=== PATIENT | female | born 1995 | race Two or more races ===

== ENCOUNTER 2023-10-27 09:00 | Emergency (ER) | payer MEDICAID ==
[~2023-10-27] VITALS: Ht 157.5 cm; Wt 87.9 kg
[2023-10-27 10:48] VITALS: BP 122/80; PULSE 98; RESP 16; TEMP 99; O2SAT 98
[2023-10-27 12:12] LABS: Urine Bacteria FEW /hpf (None Seen); Urine Blood Negative /uL (Negative); Urine Clarity Turbid (Clear); Urine Color Yellow (Yellow); Urine Mucus FEW (None Seen); Urine Protein, UAD TRACE (Negative); Urine Specific Gravity 1.025 (1.001-1.035); Urine Urobilinogen Normal (Negative); Urine WBC 2 /hpf (0 - 5)
[2023-10-27] MEDS ORDERED: CEPH500C PO (12:45)
== END 2023-10-27 13:01 | disposition home or self-care (01) ==
LOC: ER 09:00
DX: O20.8 Other hemorrhage in early pregnancy (principal); R10.2 Pelvic and perineal pain; D72.828 Other elevated white blood cell count; Z3A.19 19 weeks gestation of pregnancy; Z91.040 Latex allergy status
CPT/HCPCS: 76805; 76817; 81001; 87086

== ENCOUNTER 2024-01-26 22:52 | Observation (INO) | payer OTHER ==
[~2024-01-26] VITALS: Ht 157.5 cm; Wt 87.1 kg
[~2024-01-26 22:52] MED LIST: CEPH500C PO
[2024-01-27] MEDS: LACTATED RINGER'S 1,000 ML IV ONE (00:27)
[2024-01-27] MEDS: ONDANSETRON HCL 4 MG/2 ML VIAL IV ONE (00:32)
[2024-01-27] MEDS: FAMOTIDINE (10MG/ML) 2ML VL IV ONE (00:35)
[2024-01-27] MEDS ORDERED: ZOFR4T PO (01:41)
[2024-01-27] MEDS ORDERED: PREN-96 PO (01:41)
== END 2024-01-27 01:58 | disposition home or self-care (01) ==
LOC: LDRP 22:52
PROVIDERS: ADMIT Obstetrics & Gynecology; ATTEND Obstetrics & Gynecology
DX: O21.2 Late vomiting of pregnancy (principal); O99.353 Diseases of the nervous system complicating pregnancy, third trimester; G40.909 Epilepsy, unspecified, not intractable, without status epilepticus; O26.893 Other specified pregnancy related conditions, third trimester; D72.828 Other elevated white blood cell count; M06.9 Rheumatoid arthritis, unspecified; Z3A.32 32 weeks gestation of pregnancy
CPT/HCPCS: 59025; 81002; 96361; 96374; 96375; G0378; J2405; J3490; 96360

== ENCOUNTER 2024-03-10 05:15 | Observation (INO) | payer OTHER ==
[~2024-03-10 05:15] MED LIST changes: -CEPH500C PO; +PREN-96 PO; +ZOFR4T PO
== END 2024-03-10 08:43 | disposition home or self-care (01) ==
LOC: LDRP 05:15
PROVIDERS: ADMIT Obstetrics & Gynecology; ATTEND Obstetrics & Gynecology
DX: Z36.89 Encounter for other specified antenatal screening (principal); Z3A.39 39 weeks gestation of pregnancy
CPT/HCPCS: 59025; 76805; 76818; 81002; 94760; G0378

== ENCOUNTER 2024-03-16 04:11 | Inpatient (IN) | payer MEDICAID ==
[2024-03-15 11:18] LABS: Basophils # (auto) 0.1 10 ^3/uL (0-0.2); Basophils % (auto) 0.6 % (0.0-2.0); Eosinophils # (auto) 0 10 ^3/uL (0-0.8); Eosinophils % (auto) 0.3 % (0.0-7.0); Hematocrit 39.1 % (36.0-46.0); Hemoglobin 13.5 g/dL (12.2-16.2); Lymphocytes # (auto) 2.5 10 ^3/uL (0.4-5.4); Lymphocytes % (auto) 29.9 % (10.0-50.0); Mean Corpuscular Hemoglobin 29.1 pg (28.0-32.0); Mean Corpuscular Hgb Conc. 34.5 g/dL (32.0-36.0); Mean Corpuscular Volume 84.5 fL (80.0-100.0); Monocytes # (auto) 0.4 10 ^3/uL (0-1.3); Monocytes % (auto) 4.3 % (0.0-12.0); Neutrophils # (auto) 5.4 10 ^3/uL (1.6-8.6); Neutrophils % (auto) 64.9 % (37.0-80.0); Platelet Count (auto) 231 10^3/uL (140-450); Red Blood Cells 4.63 10^6/uL (4.0-5.20); Red Cell Distribution Width 14.3 % (11.8-14.3); White Blood Cell 8.3 10^3/uL (4.4-10.8)
[2024-03-15 11:34] LABS: Partial Thromboplastin Time 28.4 SEC (24.5-34.5); Prothrombin Time 10.6 sec (9.3-11.8)
[2024-03-15 11:40] LABS: Alanine Aminotransferase 18 U/L (7-40); Alkaline Phosphatase 188 U/L (46-116); Anion Gap 10 (5-15); Aspartate Aminotransferase 20 U/L (13-40); BUN/Creatinine Ratio 18.5 (10.0-20.0); Bilirubin, Total 0.5 mg/dL (0.2-1.0); Blood Urea Nitrogen 10 mg/dL (9-23); Calcium 9.1 mg/dL (8.7-10.4); Carbon Dioxide 20 mmol/L (20-31); Chloride 105 mmol/L (98-107); Glucose 122 mg/dL (74-106); Potassium 3.5 mmol/L (3.5-5.1); Sodium 135 mmol/L (136-145); Total Protein 6.9 g/dL (5.7-8.2)
[2024-03-15 13:09] LABS: Amphetamine Screen, Urine Neg (NEGATIVE); Benzodiazephine Screen, Urine Neg (NEGATIVE)
[2024-03-15 13:10] LABS: Barbiturate Scree,Urine Neg (NEGATIVE); Cannabinoid Screen, Urine Neg (NEGATIVE); Cocaine Screen, Urine Neg (NEGATIVE); Opiate Scree,Urine Neg (NEGATIVE); Phencyclidine Screen, Urine Neg (NEGATIVE)
[2024-03-15 13:15] LABS: Urine Bacteria FEW /hpf (None Seen); Urine Blood TRACE /uL (Negative); Urine Clarity Turbid (Clear); Urine Color Yellow (Yellow); Urine Mucus MODERATE (None Seen); Urine Protein, UAD 1+ (Negative); Urine Specific Gravity 1.028 (1.001-1.035); Urine Urobilinogen Normal (Negative); Urine WBC 3 /hpf (0 - 5)
--- NOTE | 2024-03-15 15:32 | DVHDS2 ---
Physician Discharge Progress N Final Diagnosis: preop Operations or Procedures: Operations or Procedures labs Condition on Discharge: Good Disposition: Home Discharge Instructions: Diet: Regular Activity: No Restrictions, As Tolerated Medications: na Follow Up Care: Specialist: 1d Discharge Statement: "Patient was advised to return to the ER or call 911 if any headaches, di zziness, shortness of breath, chest pain, abdominal pain, bleeding, fevers, or worsening of medical condition. Patient was counseled about treatment plan, medications, possible side effects, patientverbalized understanding. All questions were answered to the best of my ability. This discharge took greater then 30 minutes in planning, reviewing documentation, counseling the patient, and discussing with other team members." VIMAL MARTINES DO Mar 15, 2024 15:32
[~2024-03-16] VITALS: Ht 157.5 cm; Wt 88.5 kg
[2024-03-16] VITALS (14 sets, daily range): BP systolic 98–135; BP diastolic 58–74; PULSE 70–93; RESP 16–20; TEMP 97.6–98.6; O2SAT 96–99
[2024-03-16] MEDS: LACTATED RINGER'S 1,000 ML IV ONE (05:38)
[2024-03-16] MEDS: LACTATED RINGER'S 1,000 ML IV SCH (05:38)
[2024-03-16 06:06] LABS: RPR Non Reactive (Non Reactive)
[2024-03-16] MEDS: TETRACAINE 1% INJ 2 ML VIAL IJ ONE (06:56)
[2024-03-16] MEDS: ceFAZolin 2 GM/D5W50ml 50 ML IV ONE (07:10)
[2024-03-16] MEDS ORDERED: oxyTOCIN 10 UNIT/ML 10ML VIAL ONE (07:12)
[2024-03-16] MEDS ORDERED: EPINEPHrine HCL 1 MG/1 ML AMP ONE (07:12)
[2024-03-16] MEDS ORDERED: MIDAZOLAM HCL 2MG/2ML 2ml VIAL (1mg/ml) ONE (07:12)
[2024-03-16] MEDS ORDERED: MORPHINE SULF PF 5 MG/10 ML VIAL ONE (07:12)
[2024-03-16] MEDS ORDERED: ONDANSETRON HCL 4 MG/2 ML VIAL ONE (07:12)
[2024-03-16] MEDS ORDERED: SODIUM CHLORIDE LOCK 10 ML ONE (07:12)
[2024-03-16] MEDS ORDERED: fentaNYL CITRATE 100 MCG/2 ML VL ONE (07:12)
[2024-03-16] MEDS ORDERED: NALOXONE HCL 0.4 MG/ML VIAL IV PRN (07:15)
[2024-03-16] MEDS: KETOROLAC TROMETH 30 MG/ML 1ML VIAL IV ONE (07:15)
[2024-03-16] MEDS ORDERED: HYDROmorphone HCL 2 MG/ML VL/or syr IV PRN ×2 (07:15)
[2024-03-16] MEDS ORDERED: MORPHINE SULFATE INJ 2 MG/ml SYRG IV PRN (07:15)
[2024-03-16] MEDS: METOCLOPRAMIDE HCL 5MG/ml INJ 2ml VIAL IV ONE (07:15)
--- NOTE | 2024-03-16 07:34 | DVHHP ---
ADMIT DATE: 03/16/2024 CHIEF COMPLAINT: Scheduled repeat . HISTORY OF PRESENT ILLNESS: This is a 28-year-old female 3, para 2, history of 2 previous sections, due date is 03/24/2024 based on an 18-week ultrasound. She is 39 weeks gestation today. The patient has had good care with the [facility]. She was seen once here in consultation for planned repeat delivery. The patient denies any labor pains. She reports normal movements. Her has been otherwise uncomplicated. She is also requesting voluntary sterilization. She does not desire any future childbearing. PAST MEDICAL HISTORY: Epilepsy PAST SURGICAL HISTORY: Two C-sections. MEDICATIONS: Keppra for epilepsy 750 mg 2 tabs b.i.d. She takes vitamins. ALLERGIES: No known drug allergies. SOCIAL HISTORY: The patient is . Denies any tobacco, alcohol or illicit drug use. REVIEW OF SYSTEMS: Fourteen point review of systems is negative as otherwise stated in the HPI. PHYSICAL EXAMINATION: VITAL SIGNS: Stable. GENERAL: She is alert, in no acute distress, appears her stated age. HEENT: Normocephalic, atraumatic. Extraocular muscles intact. NECK: Supple, without any palpable thyromegaly. CARDIOVASCULAR: Normal heart and lung sounds without murmurs or gallops. ABDOMEN: Gravid, soft, nontender. EXTREMITIES: Without cyanosis or edema. No deformity. PELVIC: Deferred. EFM: HR baseline 140 beats per minute, moderate variability category 1, irregular contractions. ASSESSMENT: * Term intrauterine 39 weeks, previous x2, desires repeat. * Multiparity, requesting voluntary sterilization. * History of epilepsy, stable. PLAN: The patient will be admitted for repeat section with bilateral tubal ligation. The risks, benefits and alternatives to surgery have been discussed with the patient. Informed consent has been obtained. Risks of pain, scar, bleeding, infection, injury to bowel, bladder, adjacent organs, possible blood transfusion all discussed with the patient. She also understands that female sterilization is permanent and not reversible with 1% failure rate. She understands that she will be permanently sterile. All questions answered. DO WILLIAMS Rodriguez TID: [id number] RECEIPT: [id number] MTDD
[2024-03-16] MEDS ORDERED: MORPHINE SULFATE 4 MG/ML SYR/VIAL IV PRN (08:45)
[2024-03-16] MEDS ORDERED: ONDANSETRON HCL 4 MG/2 ML VIAL IV PRN (08:45)
--- NOTE | 2024-03-16 09:43 | DVHOP ---
DATE OF SURGERY: 03/16/2024 PREOPERATIVE DIAGNOSES: * Term intrauterine , 39 weeks. * Previous section x2, desires repeat. * Multiparity, requesting voluntary female sterilization. POSTOPERATIVE DIAGNOSES: * Term intrauterine , 39 weeks. * Previous section x2, desires repeat. * Multiparity, requesting voluntary female sterilization. PROCEDURE PERFORMED: * Repeat low transverse section via Pfannenstiel skin incision. * Modified Odalys bilateral tubal ligation. SURGEON: Orestes Bhakta DO CHANGE ANALYST: nurse technician. TYPE OF ANESTHESIA: Spinal. ANESTHESIOLOGIST: Dr. Morris. DESCRIPTION OF FINDINGS: Delivery of a liveborn female infant, cephalic presentation, clear amniotic fluid. scores of 8 and 9, weight 5 pounds 14 ounces. Normal uterus. Normal bilateral fallopian tubes, ovaries. Normal-appearing placenta. Minimal amount of adhesions to the anterior abdominal wall and omentum to the anterior abdominal wall. TECHNICAL PROCEDURE: After informed consent was obtained, the patient was taken to the operating room where her spinal anesthesia was found to be adequate. She was placed in the supine position with a slight leftward tilt. She was sterilely prepped and draped in the usual sterile fashion. A Pfannenstiel skin incision was made with the scalpel and the incision was carried down sharply to the underlying layer of fascia and peritoneum. The peritoneum was entered bluntly. The peritoneal incision was extended superiorly and inferiorly with good visualization of the bladder. The incision was then manually stretched. The Yoseph O retractor was placed into the incision. The vesicouterine peritoneum was dissected off the lower segment sharply with Metzenbaum scissors and a bladder flap created digitally. Using a second scalpel, the lower uterine segment was incised in a low transverse fashion and the incision extended laterally using digital technique. The amniotic fluid membranes were ruptured. The baby was in the cephalic presentation, but could not be easily delivered. With the aid of a Kiwi VAC, the vacuum was applied to the vertex of the baby, and with the executive personal assistant applying fundal pressure, the head was gently delivered. The suction cup was removed from the baby's head. The baby was then fully delivered. After delivery of the infant, the nose and mouth were suctioned. The cord was clamped and cut after 60 seconds. The baby was handed off to waiting pediatric team. Cord blood was obtained. The placenta was manually removed. The uterus was exteriorized and cleared of all clots and debris using moist laparotomy sponges. The uterus was returned to the abdomen. The uterine incision was repaired in situ using #1 PDS in continuous running locking fashion. Excellent tissue approximation and hemostasis was obtained. A second layer of #1 PDS was used to continuously run the suture for added hemostasis. Next, the left fallopian tube was found. It was traced to its fimbriated end. It was grasped at the mid isthmic portion with a Hannah clamp and tied with #2 ties of 0 plain gut and a midsegment partial salpingectomy performed. The cut ends were cauterized. The exact same procedure was performed on the contralateral fallopian tube. Left and right fallopian tube segments were submitted to pathology. Next, the abdomen was irrigated with sterile water. The cul-de-sac and pericolic gutters were cleared of all clots and debris. Once hemostasis was confirmed, SNoW was placed over the bladder flap for added hemostasis. Next, the Yoseph O retractor was removed from the patient's abdomen. All lap counts were correct at this point. I then proceeded to close the rectus fascia using #1 PDS in continuous running fashion with good tissue approximation. The subcutaneous tissue was closed with a 2-0 plain gut in continuous running fashion with good tissue approximation and the skin was closed in subcuticular fashion using 3-0 Monocryl. The Sylke sterile dressing was placed over the incision. The patient tolerated the procedure well. Sponge, lap and needle counts were correct x4. INTRAOPERATIVE COMPLICATIONS: None. ESTIMATED BLOOD LOSS: 700 mL. POSTOPERATIVE CONDITION: Stable. SPECIMENS: Placenta, cord blood, segments of left and right fallopian tubes. MEDICATIONS: The patient received 2 grams of Ancef prior to skin incision. DO ISIDORO Rodriguez TID: [id number] RECEIPT: [id number]
[2024-03-16] MEDS: levETIRAcetam 500 MG TAB PO SCH (10:03)
[2024-03-16] MEDS: ACETAMINOPHEN IV 1000 MG/100ML (10MG/ML) IV PRN (11:39)
[2024-03-16] MEDS ORDERED: IBUP-1456 PO (12:28)
[2024-03-16] MEDS ORDERED: HYDR1TAB97 PO (12:28)
[2024-03-16] MEDS: ceFAZolin 1GM/50ML 50 ML IV SCH (14:38)
[2024-03-16] MEDS: diphenhdrAMINE HCL 50 MG/1 ML VL IV PRN (22:24)
[2024-03-17] VITALS (9 sets, daily range): BP systolic 104–125; BP diastolic 59–74; PULSE 78–104; RESP 16–20; TEMP 98–98.5; O2SAT 96–100
--- NOTE | 2024-03-17 07:20 | DVHPN2 ---
Chief Complaints Patient reports: No new complaints Nursing reports: No new complaints Objective Vitals Vital Signs Date Time Temp Pulse Resp B/P (MAP) Pulse Ox O2 Delivery O2 Flow Rate FiO2 03/17/24 03:00 16 03/17/24 02:00 83 114/66 (82) 97 03/16/24 23:00 98.6 98.6 03/16/24 19:00 Room Air 03/16/24 09:05 0 100 Medications Current Medications Medications (Trade) Dose Ordered Sig/Johny Route PRN Reason Start Time Stop Time Status Last Admin Cefazolin Sodium 50 ml @ 100 mls/hr Q8H IV 03/16/24 15:00 03/17/24 07:29 03/16/24 22:54 Dimethicone (Mylicon Tab) 80 mg QID PO 03/17/24 12:00 UNV Docusate Calcium (Surfak Capsule) 240 mg DAILY PO 03/17/24 10:00 UNV Docusate Sodium (Colace Capsule) 100 mg Q12HR PO 03/17/24 10:00 UNV Levetiracetam (Keppra Tablet) 750 mg BID PO 03/16/24 10:00 03/16/24 22:19 Ondansetron HCl (Zofran) 4 mg Q4HP PRN IV NAUSEA / VOMITING 03/16/24 08:45 General: Normal Neck: Normal Lungs: Normal Cardiovascular: Normal Abdominal: Soft Extremities: Normal Studies Laboratory Tests 03/15/24 10:58 Test 03/15/24 10:58 Range/Units Serum Glucose 122 H 74-106 mg/dL Ass/Plan Assessment s/p rcs with btl Plan supportive care VIMAL MARTINES DO Mar 17, 2024 07:19
[2024-03-17] MEDS: IBUPROFEN 800 MG TAB PO PRN (07:29)
[2024-03-17] MEDS ORDERED: HYDROcodone-ACET 5/325MG TAB PO PRN (07:30)
[2024-03-17 08:44] LABS: Basophils # (auto) 0 10 ^3/uL (0-0.2); Basophils % (auto) 0.1 % (0.0-2.0); Eosinophils # (auto) 0 10 ^3/uL (0-0.8); Eosinophils % (auto) 0.1 % (0.0-7.0); Hematocrit 35.1 % (36.0-46.0); Hemoglobin 11.5 g/dL (12.2-16.2); Lymphocytes # (auto) 1.8 10 ^3/uL (0.4-5.4); Lymphocytes % (auto) 13.1 % (10.0-50.0); Mean Corpuscular Hemoglobin 28.3 pg (28.0-32.0); Mean Corpuscular Hgb Conc. 32.9 g/dL (32.0-36.0); Mean Corpuscular Volume 86.1 fL (80.0-100.0); Monocytes # (auto) 0.6 10 ^3/uL (0-1.3); Monocytes % (auto) 4.4 % (0.0-12.0); Neutrophils # (auto) 11.2 10 ^3/uL (1.6-8.6); Neutrophils % (auto) 82.3 % (37.0-80.0); Platelet Count (auto) 214 10^3/uL (140-450); Red Blood Cells 4.07 10^6/uL (4.0-5.20); Red Cell Distribution Width 14.4 % (11.8-14.3); White Blood Cell 13.6 10^3/uL (4.4-10.8)
[2024-03-17] MEDS: HYDROcodone-ACET 5/325MG TAB PO PRN (08:54)
[2024-03-17] MEDS: DOCUSATE SOD 100 MG CAP PO SCH (12:27)
[2024-03-17] MEDS: SIMETHICONE 80 MG CHEWABLE TABLET PO SCH (12:27)
[2024-03-17] MEDS: DOCUSATE CALCIUM 240 MG CAP PO SCH (12:27)
[2024-03-18 03:00] VITALS: BP 110/68; PULSE 95; RESP 16; TEMP 98.4; O2SAT 97
[2024-03-18 07:00] VITALS: BP 107/69; PULSE 84; RESP 16; TEMP 97; O2SAT 97
--- NOTE | 2024-03-18 08:23 | DVHPN2 ---
Chief Complaints Patient reports: No new complaints Nursing reports: No new complaints Objective Vitals Vital Signs Date Time Temp Pulse Resp B/P (MAP) Pulse Ox O2 Delivery O2 Flow Rate FiO2 03/18/24 03:00 98.4 95 16 110/68 (82) 97 98.4 03/17/24 19:00 Room Air 03/16/24 09:05 0 100 Medications Current Medications Medications (Trade) Dose Ordered Sig/Johny Route PRN Reason Start Time Stop Time Status Last Admin Dimethicone (Mylicon Tab) 80 mg QID PO 03/17/24 12:00 03/18/24 06:28 Docusate Calcium (Surfak Capsule) 240 mg DAILY PO 03/17/24 10:00 03/17/24 12:27 Docusate Sodium (Colace Capsule) 100 mg Q12HR PO 03/17/24 10:00 03/17/24 21:35 General: Normal Neck: Normal Lungs: Normal, Normal inspection Cardiovascular: Normal Abdominal: Soft Extremities: Normal Studies Laboratory Tests 03/17/24 06:15 03/15/24 10:58 Test 03/15/24 10:58 Range/Units Serum Glucose 122 H 74-106 mg/dL Ass/Plan Assessment s/p rcs with btl Plan SUPPORTIVE CARE VIMAL MARITNES DO Mar 18, 2024 08:23
[2024-03-18 11:20] VITALS: BP 116/71; PULSE 93; RESP 16; TEMP 98.8; O2SAT 99
--- NOTE | 2024-03-18 11:28 | DVHDS2 ---
Obstetrics Discharge Summary Obstetrics Discharge Summary Date of Admission: Mar 16, 2024 Date of Discharge: Mar 18, 2024 Reason For Admission: Section (Repeat), Tubal Ligation Procedures: NST Intrapartum Procedures: (Low Cervical Transverse) Operative Complicat: None Discharge Diagnosis: Term -Delivered Discharge Information: Activity (Other), Diet (Routine), Medications (Name:), Instructions, Discharge to, Accompanied by (11-2) VIMAL MARTINES DO Mar 18, 2024 11:28
[2024-03-18 15:30] VITALS: BP 124/68; PULSE 95; RESP 16; TEMP 98.6; O2SAT 98
[2024-03-20 13:07] LABS: Treponema Pallidum Ab LC Non Reactive (Non Reactive)
== END 2024-03-18 16:20 | disposition home or self-care (01) | DRG 539 ==
LOC: LDRP 04:11
PROVIDERS: ADMIT Obstetrics & Gynecology; ATTEND Obstetrics & Gynecology
PROC: 0UB70ZZ Excision of Bilateral Fallopian Tubes, Open Approach (ICD-10-PCS; 2024-03-16)
PROC: 10D00Z1 Extraction of Products of Conception, Low, Open Approach (ICD-10-PCS; principal; 2024-03-16 07:17)
DX: O34.211 Maternal care for low transverse scar from previous cesarean delivery (principal); O99.354 Diseases of the nervous system complicating childbirth; G40.909 Epilepsy, unspecified, not intractable, without status epilepticus; Z30.2 Encounter for sterilization; Z37.0 Single live birth; Z3A.39 39 weeks gestation of pregnancy
CPT/HCPCS: 36415; 59025; 80053; 80307; 81001; 85025; 85610; 85730; 86592; 86780; 86803; 86850; 86900; 86901; 94760; 94762; 96360; 96361; G0378; J0131; J0171; J1885; J2250; J2405; J2590

== ENCOUNTER 2024-04-01 00:28 | Inpatient (IN) | payer MEDICAID ==
[2024-04-01] VITALS (8 sets, daily range): BP systolic 90–120; BP diastolic 53–79; PULSE 106–120; RESP 16–25; TEMP 99.1; O2SAT 93–99
[~2024-04-01] VITALS: Ht 157.5 cm; Wt 89.0 kg
[~2024-04-01 00:28] MED LIST changes: +HYDR1TAB97 PO; +IBUP-1456 PO; -ZOFR4T PO
[2024-04-01] MEDS: IOHEXOL 300 MG/ML 100ML BOTTLE IJ ONE (00:48)
--- NOTE | 2024-04-01 00:57 | ED.PDOC ---
GI ASSESSMENT HPI Comments 28-year-old female who came to ER via EMS due to nausea and vomiting. Patient is status post CS x3 about 2 weeks ago. Past few hours, patient has been having lower abdominal pain, localized at the right lower quadrant, associated bouts of nausea, vomiting, and diarrhea. States she could not keep anything in. Also complaining of chills, and diaphoresis, and generalized loss of appetite. Chief Complaint: Nausea/Vomiting Time Seen by MD: 00:56 Reviewed Notes: Nurses Notes Allergies: Coded Allergies: Latex (Verified Allergy, Unknown, 10/27/23) Home Meds Active Scripts Ibuprofen (Ibuprofen) 800 Mg Tab, 800 MG PO Q8HP PRN, #30 TAB Prov:BETHANIE LOPEZ DO 03/16/24 Hydrocodone-Acetaminophen (Hydrocodone/Acetaminophen 5-325 mg) 1 Tab Tab, 1 TAB PO Q6HPRN PRN, #20 TAB Prov:BETHANIE LOPEZ DO 03/16/24 Vit W/ Ferrous Fumara ( One Daily) Daily Tab, 1 TAB PO DAILY, #90 TAB 3 Refills Prov:ROBINSON VILLAVICENCIO CNM 01/27/24 Information Source: Patient, Emergency Med Personnel Mode of Arrival: EMS Timing: Hours Duration: Since onset Prehospital treatment: None Quality: Aching, Cramping Vomitus: Watery Stool: Loose, Watery Severity: Moderate Recent: None Recent Hx of: Abdominal Surgery Pain Location: RLQ Modifying Factors: Nothing Associated sign and symptoms: Nausea, Vomiting Past Medical History PAST MEDICAL HISTORY: Seizures Surgical History: BTL, Cholecystectomy, MEDICAL RECORD ASSISTANT History: Denies all MEDICAL RECORD ASSISTANT Hx Family History Family History: Reviewed,noncontributory to illness Social History Smoker: Non-Smoker Alcohol: Denies ETOH Use Drugs: Denies Drug Use Lives In: Home Constitutional: denies: chills, diaphoresis, fatigue, fever, malaise, sweats, weakness, others EENTM: denies: blurred vision, double vision, ear bleeding, ear discharge, ear drainage, ear pain, ear ringing, eye pain, eye redness, hearing loss, mouth pain, mouth swelling, nasal discharge, nose bleeding, nose congestion, nose pain, photophobia, tearing, throat pain, throat swelling, voice changes, others Respiratory: denies: cough, hemoptysis, orthopnea, SOB at rest, shortness of breath, SOB with excertion, stridor, wheezing, others Cardiovascular: denies: chest pain, dizzy spells, diaphoresis, Dyspnea on exertion, edema, irregular heart beat, left arm pain, lightheadedness, palpitations, PND, syncope, others Gastrointestinal: reports: abdominal pain, diarrhea, nausea, vomiting; denies: abdomen distended, blood streaked bowels, constipated, dysphagia, difficulty swallowing, hematemesis, melena, poor appetite, poor fluid intake, rectal bleeding, rectal pain, others Genitourinary: denies: abnormal vagina bleeding, burning, dyspareunia, dysuria, flank pain, frequency, hematuria, incontinence, pain, , vagina discharge, urgency, others Neurological: denies: dizziness, fainting, headache, left sided numbness, left sided weakness, numbness, paresthesia, pre-existing deficit, right sided numbness, right sided weakness, seizure, speech problems, tingling, tremors, weakness, others Musculoskeletal: denies: back pain, gout, joint pain, joint swelling, muscle pain, muscle stiffness, neck pain, others Integumetry: denies: bruises, change in color, change in hair/nails, dryness, laceration, lesions, lumps, rash, wounds, others Allergic/Immunocompromised: denies: Difficulty Healing, Frequent Infections, Hives, Itching, others Hematologic/Lymphatic: denies: anemia, blood clots, easy bleeding, easy bruisin g, swollen glands, others Endocrine: denies: excessive hunger, excessive sweating, excessive thirst, excessive urination, flushing, intolerance to cold, intolerance to heat, unexplained weight gain, unexplained weight loss, others Psychiatric: denies: anxiety, bipolar disorder, depression, hopeless, panic disorder, schizophrenia, sleepless, suicidal, others Physical Exam General Appearance: No Apparent Distress, Normal HEENT: Normal ENT Inspection, Pharynx Normal, TMs Normal Neck: Full Range of Motion, Non-Tender, Normal, Normal Inspection Respiratory: Chest Non-Tender, Lungs Clear, No Accessory Muscle Use, No Respir atory Distress, Normal Breath Sounds Cardiovascular: No Edema, No JVD, No Murmur, No Gallop, Normal Peripheral Pulses, Regular Rate/Rhythm Breast Exam: Deferred Gastrointestinal: No Organomegaly, No Pulsatile Mass, Normal Bowel Sounds, RLQ, Soft, Tenderness Genitalia: Deferred Pelvic: Deferred Rectal: Deferred Extremities: No calf tenderness, Normal capillary refill, Normal inspection, Normal range of motion, Non-tender, No pedal edema Musculoskeletal : Apperance: Normal Neurologic: Alert, plastic surgery coordinator II-XII nml as Tested, No Motor Deficits, Normal Affect, Normal Mood, No Sensory Deficits Cerebellar Function: Normal Reflexes: Normal Skin: Dry, Normal Color, Warm Lymphatic: No Adenopathy Was a procedure done? Was a procedure done?: No GI differential Dx Differential Diagnosis: Appendicitis, Constipation, Diverticular disease, Gastritis/PUD, Gastroenteritis, Pancreatitis, UTI, Urolithiasis X-Ray, Labs, Meds, VS Vital Signs Date Time Temp Pulse Resp B/P (MAP) Pulse Ox O2 Delivery O2 Flow Rate FiO2 04/01/24 02:00 113 15 93/56 (68) 97 04/01/24 01:14 112 25 98 Room Air* 0 21 04/01/24 00:43 98.6 118 17 106/64 (78) 98 98.6 04/01/24 00:38 98.9 126 16 120/79 (93) 98 Lab Test 04/01/24 00:50 Range/Units White Blood Count 23.7 H 4.4-10.8 10^3/uL Red Blood Count 3.71 L 4.0-5.20 10^6/uL Hemoglobin 10.3 L 12.2-16.2 g/dL Hematocrit 30.9 L 36.0-46.0 % Mean Corpuscular Volume 83.4 80.0-100.0 fL Mean Corpuscular Hemoglobin 27.9 L 28.0-32.0 pg Mean Corpuscular Hemoglobin Concent 33.5 32.0-36.0 g/dL Red Cell Distribution Width 14.9 H 11.8-14.3 % Platelet Count 697 H 140-450 10^3/uL Mean Platelet Volume 6.0 L 6.9-10.8 fL Neutrophils (%) (Auto) 87.8 H 37.0-80.0 % Lymphocytes (%) (Auto) 5.9 L 10.0-50.0 % Monocytes (%) (Auto) 6.2 0.0-12.0 % Eosinophils (%) (Auto) 0.0 0.0-7.0 % Basophils (%) (Auto) 0.1 0.0-2.0 % Neutrophils # (Auto) 20.8 H 1.6-8.6 10 ^3/uL Lymphocytes # (Auto) 1.4 0.4-5.4 10 ^3/uL Monocytes # (Auto) 1.5 H 0-1.3 10 ^3/uL Eosinophils # (Auto) 0 0-0.8 10 ^3/uL Basophils # (Auto) 0 0-0.2 10 ^3/uL Nucleated Red Blood Cells 0.0 % Sodium Level 144 136-145 mmol/L Potassium Level 2.6 L 3.5-5.1 mmol/L Chloride Level 109 H 98-107 mmol/L Carbon Dioxide Level 23 20-31 mmol/L Anion Gap 12 5-15 Blood Urea Nitrogen 18 9-23 mg/dL Creatinine 0.98 0.550-1.02 mg/dL Glomerular Filtration Rate Calc 80 >90 mL/min BUN/Creatinine Ratio 18.4 10.0-20.0 Serum Glucose 108 H 74-106 mg/dL Calcium Level 9.2 8.7-10.4 mg/dL Total Bilirubin 0.4 0.2-1.0 mg/dL Aspartate Amino Transferase (AST) 14 13-40 U/L Alanine Aminotransferase (ALT) 12 7-40 U/L Alkaline Phosphatase 154 H 46-116 U/L Total Protein 7.2 5.7-8.2 g/dL Albumin 3.8 3.2-4.8 g/dL Current Medications Medications (Trade) Dose Ordered Sig/Johny Route Start Time Stop Time Status Last Admin Sodium Chloride 1,000 ml @ 1,000 mls/hr Q1H ONCE IV 04/01/24 00:45 04/01/24 01:44 DC 04/01/24 01:02 Ondansetron HCl (Zofran) 4 mg ONCE ONCE IV 04/01/24 00:45 04/01/24 00:48 DC 04/01/24 01:02 Famotidine (Pepcid Injection) 20 mg ONCE ONCE IV 04/01/24 00:45 04/01/24 00:48 DC 04/01/24 01:02 Ketorolac Tromethamine (Toradol Injection) 15 mg ONCE ONCE IV 04/01/24 00:45 04/01/24 00:48 DC 04/01/24 01:03 Levetiracetam 100 ml @ 400 mls/hr ONCE ONCE IV 04/01/24 01:00 04/01/24 01:14 DC 04/01/24 01:09 Potassium Chloride (Klor-Con Tablet) 60 meq ONCE ONCE PO 04/01/24 02:45 04/01/24 02:46 DC 04/01/24 02:50 PROCEDURE(s): ABPLIV - CT AB PEL WITH IV CON ONLY FINDINGS: CT ABDOMEN Visualized lower thorax: The evaluation of lung bases demonstrates no focal infiltrates or pleural effusion. Liver: The liver is enlarged in size, with the right lobe measuring approximately 18.8 cm. The portal venous radicles are normal. There is no intrahepatic biliary radicle dilatation. Gallbladder: The gallbladder is surgically absent. The common bile duct is not dilated. Pancreas: The pancreas is normal in size and shape. No focal lesion is seen within. The peripancreatic fat planes are normal. Spleen: The spleen is enlarged in size, measuring approximately 13.4 cm and does not show any focal abnormality. Retroperitoneum: Both adrenal glands are normal in size and morphology. There is no significant retroperitoneal lymphadenopathy. Bosniak class I simple renal cortical cyst of approximate size 11 mm at the lower pole of left kidney for which no routine follow-up is required. The kidneys are normal in size, with no hydronephrosis or renal calculi. Vessels: The aorta, IVC and mesenteric vessels appear unremarkable. Stomach and bowel: The bowel loops are unremarkable. There is no ascites. Skeletal system: The visualized thoracolumbar vertebrae and the pelvic bones are unremarkable. CT PELVIS Appendix: The appendix is not distinctly visualized. Colon: The colon and rectum are collapsed. Urinary bladder: Partially distended urinary bladder with circumferential soft tissue density urinary bladder wall thickening, probably due to underdistention/cystitis. Advised urinalysis correlation. Pelvic organs: enlarged uterus. A well-defined, thick-walled, peripherally enhancing collection/lesion of approximate size 13.5 x 9.3 x 10.5 cm (mediolateral x anteroposterior x craniocaudal) with air-fluid level within and adjacent fat stranding noted in the muscular plane of anterior pelvic wall, extending into the pelvic cavity anterior to the urinary bladder and uterus, suggestive of formed abscess. There is another hypodense collection of approximate size 5.2 x 3.3 x 3 cm (mediolateral x anteroposterior x craniocaudal) with air foci within noted in the anterior wall of uterus, superior to the dome of urinary bladder and communicating anteriorly with the above-mentioned pelvic wall abscess and posteriorly with the endometrial canal, which also shows mild hypodense collection and air foci within. A hypodense cystic lesion of approximate size 17 x 15 mm in the left adnexal region, likely left ovarian follicular cyst. No right adnexal lesion. No significant pelvic lymphadenopathy is identified. Significant fat stranding, hypo- to iso-densities and air foci noted in the subcutaneous plane of anterior pelvic wall, infective/inflammatory changes. IMPRESSION: 1. Formed abscess in the anterior pelvic wall as described. 2. Another pocket of collection noted in the anterior wall of uterus, communicating anteriorly with the above-mentioned pelvic wall abscess and posteriorly in the endometrial canal. 3. No abdominal adenopathy. 4. No ascites. 5. Chronic and/or ancillary findings as described above. Time of 1ST Reevaluation: 00:52 Reevaluation 1ST: Unchanged Patient Education/Counseling: Diagnosis, Treatment Family Education/Counseling: No Family Present Departure 1 Departure Time of Disposition: 03:09 (Patient presented with abdominal pain that was concerning for possible appendicits, gastritis, cholecystitis, colitis, gastroenteritis, sbo, or orther possible surgical emergency. Data: 1. I ordered and reviewed the result of at least 3 labs including a CBC, BMP, and Urinalysis. 2. I independently interpreted the following tests: CT Abdoment and Pelvis is concerning for abdominal abscesses .Risk:This patient has a high risk of morbidity due to further diagnostic testing or treatment and may suffer from an acute abdominal process disorder. Workup reveals abdominal abscess and OB was consulted and patient should be admitted for further workup. and possible expert consultation. ) Impression: Primary Impression: Abdominal abscess Additional Impressions: Status post Abdominal pain Qualified Codes: R10.84 - Generalized abdominal pain Disposition: 09 ADMITTED INPATIENT Admit to: Med Surg Condition: Serious Critical Care Note Critical Care Time?: Yes Critical care comment: Intractable abdominal pain Authorized and Performed by: Cecil Chung MD Total critical care time: Approximately 42 minutes Due to a high probability of clinically significant, life threatening deterioration, the patient required my highest level of preparedness to intervene emergently and I personally spent this critical care time directly and personally managing the patient. This critical care time included obtaining a history; examining the patient; pulse oximetry; ordering and review of studies; arranging urgent treatment with development of a management plan; evaluation of patient's response to treatment; frequent reassessment; and, discussions with other providers. This critical care time was performed to assess and manage the high probability of imminent, life-threatening deterioration that could result in multi-organ failure. It was exclusive of separately billable procedures and treating other patients and teaching time. Please see my other sections and the rest of the note for further information on patient assessment and treatment. Stability Stability form required: No Heart Score Heart Score: Heart Score Response (Comments) Value History N/A 0 EKG N/A 0 Age N/A 0 Risk Factors N/A 0 Troponin N/A 0 Total 0 I personally scribed for CECIL CHUNG MD (MARCO) on 04/01/24 at 00:57. Electronically submitted by Esvin Rich ([email or web address]). I personally scribed for CECIL CHUNG MD (MARCO) on 04/01/24 at 03:03. Electronically submitted by Esvin Rich ([email or web address]). CECIL CHUNG MD Apr 01, 2024 00:57
[2024-04-01] MEDS: FAMOTIDINE (10MG/ML) 2ML VL IV ONE (01:02)
[2024-04-01] MEDS: ONDANSETRON HCL 4 MG/2 ML VIAL IV ONE (01:02)
[2024-04-01] MEDS: SODIUM CHLORIDE 0.9% 1,000 ML IV ONE ×2 (01:02→09:53)
[2024-04-01] MEDS: KETOROLAC TROMETH 30 MG/ML 1ML VIAL IV ONE (01:03)
[2024-04-01 01:07] LABS: Mean Corpuscular Hemoglobin 27.9 pg (28.0-32.0)
[2024-04-01 01:09] LABS: Basophils # (auto) 0 10 ^3/uL (0-0.2); Basophils % (auto) 0.1 % (0.0-2.0); Eosinophils # (auto) 0 10 ^3/uL (0-0.8); Hematocrit 30.9 % (36.0-46.0); Hemoglobin 10.3 g/dL (12.2-16.2); Lymphocytes # (auto) 1.4 10 ^3/uL (0.4-5.4); Lymphocytes % (auto) 5.9 % (10.0-50.0); Mean Corpuscular Hgb Conc. 33.5 g/dL (32.0-36.0); Mean Corpuscular Volume 83.4 fL (80.0-100.0); Monocytes # (auto) 1.5 10 ^3/uL (0-1.3); Monocytes % (auto) 6.2 % (0.0-12.0); Neutrophils # (auto) 20.8 10 ^3/uL (1.6-8.6); Neutrophils % (auto) 87.8 % (37.0-80.0); Platelet Count (auto) 697 10^3/uL (140-450); Red Blood Cells 3.71 10^6/uL (4.0-5.20); Red Cell Distribution Width 14.9 % (11.8-14.3); White Blood Cell 23.7 10^3/uL (4.4-10.8)
[2024-04-01] MEDS: levETIRAcetam 1000 mg/100ml 100 ML IV ONE (01:09)
[2024-04-01 01:21] LABS: Alanine Aminotransferase 12 U/L (7-40); Albumin 3.8 g/dL (3.2-4.8); Alkaline Phosphatase 154 U/L (46-116); Anion Gap 12 (5-15); Aspartate Aminotransferase 14 U/L (13-40); BUN/Creatinine Ratio 18.4 (10.0-20.0); Bilirubin, Total 0.4 mg/dL (0.2-1.0); Blood Urea Nitrogen 18 mg/dL (9-23); Calcium 9.2 mg/dL (8.7-10.4); Carbon Dioxide 23 mmol/L (20-31); Chloride 109 mmol/L (98-107); Glucose 108 mg/dL (74-106); Potassium 2.6 mmol/L (3.5-5.1); Sodium 144 mmol/L (136-145); Total Protein 7.2 g/dL (5.7-8.2)
[2024-04-01] MEDS: POTASSIUM CHL 20 Meq TABLET PO ONE (02:50)
--- NOTE | 2024-04-01 02:57 | DVH ---
Examination: ABPLIV CLINICAL INDICATION: ;2 weeks s/p csection, worsening abdominal pain COMPARISON: None. CONTRAST USED: Intravenous. TECHNIQUE: A post-contrast CT study of the abdomen and pelvis is performed. The examination was per formed with [address] scan was done according to ALARA (As Low as Reasonably Achievable). Multiplanar reconstructions were obtained. FINDINGS: CT ABDOMEN Visualized lower thorax: The evaluation of lung bases demonstrates no focal infiltrates or pleural e ffusion. Liver: The liver is enlarged in size, with the right lobe measuring approximately 18.8 cm. The portal venous radicles are normal. There is no intrahepatic biliary radicle dilatation. Gallbladder: The gallbladder is surgically absent. The common bile duct is not dilated. Pancreas: The pancreas is normal in size and shape. No focal lesion is seen within. The peripancre atic fat planes are normal. Spleen: The spleen is enlarged in size, measuring approximately 13.4 cm and does not show any focal abnormality. Retroperitoneum: Both adrenal glands are normal in size and morphology. There is no significant ret roperitoneal lymphadenopathy. Bosniak class I simple renal cortical cyst of approximate size 11 mm at the lower pole of left kidney for which no routine follow-up is required. The kidneys are normal in size, with no hydronephrosis or renal calculi. Vessels: The aorta, IVC and mesenteric vessels appear unremarkable. Stomach and bowel: The bowel loops are unremarkable. There is no ascites. Skeletal system: The visualized thoracolumbar vertebrae and the pelvic bones are unremarkable. CT PELVIS Appendix: The appendix is not distinctly visualized. Colon: The colon and rectum are collapsed. Urinary bladder: Partially distended urinary bladder with circumferential soft tissue density urinar y bladder wall thickening, probably due to underdistention/cystitis. Advised urinalysis correlation. Pelvic organs: enlarged uterus. A well-defined, thick-walled, peripherally enhancing collection/lesion of approximate size 13.5 x 9.3 x 10.5 cm (mediolateral x anteroposterior x craniocaudal) with air-fluid level within and adjacent f at stranding noted in the muscular plane of anterior pelvic wall, extending into the pelvic cavity an terior to the urinary bladder and uterus, suggestive of formed abscess. There is another hypodense collection of approximate size 5.2 x 3.3 x 3 cm (mediolateral x anteropost erior x craniocaudal) with air foci within noted in the anterior wall of uterus, superior to the dome of urinary bladder and communicating anteriorly with the above-mentioned pelvic wall abscess and pos teriorly with the endometrial canal, which also shows mild hypodense collection and air foci within. A hypodense cystic lesion of approximate size 17 x 15 mm in the left adnexal region, likely left ovar shay follicular cyst. No right adnexal lesion. No significant pelvic lymphadenopathy is identified. Significant fat stranding, hypo- to iso-densities and air foci noted in the subcutaneous plane of ant erior pelvic wall, infective/inflammatory changes. IMPRESSION: 1. Formed abscess in the anterior pelvic wall as described. 2. Another pocket of collection noted in the anterior wall of uterus, communicating anteriorly with the above-mentioned pelvic wall abscess and posteriorly in the endometrial canal. 3. No abdominal adenopathy. 4. No ascites. 5. Chronic and/or ancillary findings as described above. Electronically Signed 04/01/2024 02:48 Abbie Pagan
[2024-04-01] MEDS: VANCOMYCIN 1GM/250ML KIT 200 ML IV ONE (03:14)
[2024-04-01] MEDS: CEFEPIME 2GM/50ML NS 50 ML IV ONE (04:09)
[2024-04-01] MEDS ORDERED: NITROGLYCERIN 0.4 MG SL TAB SL PRN (04:45)
[2024-04-01] MEDS ORDERED: VANCOMYCIN PER PHARMACY 0 MG IV SCH (04:45)
[2024-04-01] MEDS ORDERED: MORPHINE SULFATE INJ 2 MG/ml SYRG IV PRN (04:45)
--- NOTE | 2024-04-01 04:46 | DVHHP2 ---
History of Present Illness Reason for Visit: Abdominal abscess History of Present Illness The patient is a 28-year-old female with past medical history of seizures who presented to [facility] ED with complaint of generalized abdominal pain. Patient reports status post x3 last one about 2 weeks ago. Patient states she started having lower abdominal pain, localized at the right lower quadrant, associated nausea, vomiting, diarrhea, unable to keep any food down, feeling chills, diaphoresis, generalized loss of appetite, generalized weakness that prompted this visit. Patient was seen and evaluated in the ED, laboratory data shows elevated WBC 23.7, hemoglobin 10.3, hematocrit 30.9, platelets 697, sodium 144, potassium 2.6, BUN 18, creatinine 0.98, GFR 80, glucose 108. Abdomen/pelvis CT revealing formed abscess in the anterior pelvic wall; another pocket of collection noted in the anterior wall of uterus, communicating anteriorly with the above mentioned pelvic wall abscess and posteriorly in the endometrial canal. Patient was started on IV antibiotic regimen vancomycin, please see medication orders section in the computer. On my assessment, patient denies chest pain, no headache, no dizziness, no palpitations, no shortness of breath, no abdominal pain, diarrhea, nausea or vomiting at this moment, no fever. Patient was admitted for further evaluation and medical management. Past Medical History Seizures Past Surgical History BTL, Cholecystectomy, x3 Family History Reviewed, noncontributory to the management of this case. Past Social History The patient lives at home, denies smoking, alcohol or illicit drugs abuse. Review of Systems Constitutional: Yes: Weakness; No: Fever, Chills, Sweats, Malaise, Other Eyes: No: Pain, Vision change, Conjunctivae inflammation, Eyelid inflammation, Other, Redness ENT: No: Ear pain, Ear discharge, Nose pain, Nose discharge, Nose congestion, Mouth pain, Mouth swelling, Throat pain, Throat swelling, Other Respiratory: No: Cough, Dry, Shortness of breath, SOB with excertion, Wheezing, Hemoptysis, Pleuritic Pain, Sputum, Wheezing, Other Cardiovascular: No: Chest Pain, Palpitations, Orthopnea, Paroxysmal Noc. Dyspnea, Edema, Lt Headedness, Other Gastrointestinal: Nausea, Vomiting, Abdominal Pain, Diarrhea; No: Constipation, Melena, Hematochezia, Other Genitourinary: No Dysuria, No Frequency, No Incontinence, No Hematuria, No Retention, No Other Musculoskeletal: No: other, neck pain, shoulder pain, arm pain, back pain, hand pain, leg pain, foot pain Skin: No: Rash, Lesions, Jaundice, Bruising, Other Neurological: No: Weakness, Numbness, Incoordination, Change in speech, Confusion, Seizures, Other Allergies: Coded Allergies: Latex (Verified Allergy, Unknown, 10/27/23) Exam Vital Signs Vital Signs Date Time Temp Pulse Resp B/P (MAP) Pulse Ox O2 Delivery O2 Flow Rate FiO2 04/01/24 04:00 101 21 105/66 (79) 97 04/01/24 01:14 Room Air* 0 21 04/01/24 00:43 98.6 98.6 General Appearance: Alert, Oriented X3, Cooperative, No acute distress HEENT: Atraumatic, PERRLA, EOMI, Mucous membr. moist/pink Respiratory: Clear to auscultation, Normal air movement Cardiovascular: Regular rate, Normal S1, Normal S2, No murmurs Abdominal: Normal bowel sounds, Soft, No tenderness, No hepatospenomegaly, No masses Extremities: No clubbing, No cyanosis, No edema, Normal pulses, No tenderness/swelling Skin: No rashes, No breakdown, No significant lesion Neuro: Normal speech, Normal tone, Sensation intact, Cranial nerves 3-12 NL, Reflexes 2+, Other (Generalized weakness) Psych/Mental Status: Mental status NL, Mood NL Labs/Xrays Labs Test 04/01/24 03:15 04/01/24 00:50 Range/Units Lactic Acid Level 1.3 0.4-2.0 mmol/L White Blood Count 23.7 H 4.4-10.8 10^3/uL Red Blood Count 3.71 L 4.0-5.20 10^6/uL Hemoglobin 10.3 L 12.2-16.2 g/dL Hematocrit 30.9 L 36.0-46.0 % Mean Corpuscular Volume 83.4 80.0-100.0 fL Mean Corpuscular Hemoglobin 27.9 L 28.0-32.0 pg Mean Corpuscular Hemoglobin Concent 33.5 32.0-36.0 g/dL Red Cell Distribution Width 14.9 H 11.8-14.3 % Platelet Count 697 H 140-450 10^3/uL Mean Platelet Volume 6.0 L 6.9-10.8 fL Neutrophils (%) (Auto) 87.8 H 37.0-80.0 % Lymphocytes (%) (Auto) 5.9 L 10.0-50.0 % Monocytes (%) (Auto) 6.2 0.0-12.0 % Eosinophils (%) (Auto) 0.0 0.0-7.0 % Basophils (%) (Auto) 0.1 0.0-2.0 % Neutrophils # (Auto) 20.8 H 1.6-8.6 10 ^3/uL Lymphocytes # (Auto) 1.4 0.4-5.4 10 ^3/uL Monocytes # (Auto) 1.5 H 0-1.3 10 ^3/uL Eosinophils # (Auto) 0 0-0.8 10 ^3/uL Basophils # (Auto) 0 0-0.2 10 ^3/uL Nucleated Red Blood Cells 0.0 % Sodium Level 144 136-145 mmol/L Potassium Level 2.6 L 3.5-5.1 mmol/L Chloride Level 109 H 98-107 mmol/L Carbon Dioxide Level 23 20-31 mmol/L Anion Gap 12 5-15 Blood Urea Nitrogen 18 9-23 mg/dL Creatinine 0.98 0.550-1.02 mg/dL Glomerular Filtration Rate Calc 80 >90 mL/min BUN/Creatinine Ratio 18.4 10.0-20.0 Serum Glucose 108 H 74-106 mg/dL Calcium Level 9.2 8.7-10.4 mg/dL Total Bilirubin 0.4 0.2-1.0 mg/dL Aspartate Amino Transferase (AST) 14 13-40 U/L Alanine Aminotransferase (ALT) 12 7-40 U/L Alkaline Phosphatase 154 H 46-116 U/L Total Protein 7.2 5.7-8.2 g/dL Albumin 3.8 3.2-4.8 g/dL PATIENT: DENA KILPATRICKCT: [id number] UNIT: [id number] : 1995 LOC: ER ROOM / BED: / AGE / SEX: 28 / F ADM STATUS: REG ER SERVICE [id number] ORDERING PHYSICIAN: CECIL CHUNG MD PROCEDURE(s): ABPLIV - CT AB PEL WITH IV CON ONLY REASON: 2 weeks s/p csection, worsening abdominal pain ORDER NUMBER(s): [id number], ACCESSION NUMBER(s): [id number] Examination: ABPLIV CLINICAL INDICATION: ;2 weeks s/p csection, worsening abdominal pain COMPARISON: None. CONTRAST USED: Intravenous. TECHNIQUE: A post-contrast CT study of the abdomen and pelvis is performed. The examination was performed with [address] scan was done according to ALARA (As Low as Reasonably Achievable). Multiplanar reconstructions were obtained. FINDINGS: CT ABDOMEN Visualized lower thorax: The evaluation of lung bases demonstrates no focal infiltrates or pleural effusion. Liver: The liver is enlarged in size, with the right lobe measuring approximately 18.8 cm. The portal venous radicles are normal. There is no intrahepatic biliary radicle dilatation. Gallbladder: The gallbladder is surgically absent. The common bile duct is not dilated. Pancreas: The pancreas is normal in size and shape. No focal lesion is seen within. The peripancreatic fat planes are normal. Spleen: The spleen is enlarged in size, measuring approximately 13.4 cm and does not show any focal abnormality. Retroperitoneum: Both adrenal glands are normal in size and morphology. There is no significant retroperitoneal lymphadenopathy. Bosniak class I simple renal cortical cyst of approximate size 11 mm at the lower pole of left kidney for which no routine follow-up is required. The kidneys are normal in size, with no hydronephrosis or renal calculi. Vessels: The aorta, IVC and mesenteric vessels appear unremarkable. Stomach and bowel: The bowel loops are unremarkable. There is no ascites. Skeletal system: The visualized thoracolumbar vertebrae and the pelvic bones are unremarkable. CT PELVIS Appendix: The appendix is not distinctly visualized. Colon: The colon and rectum are collapsed. Urinary bladder: Partially distended urinary bladder with circumferential soft tissue density urinary bladder wall thickening, probably due to underdistention/cystitis. Advised urinalysis correlation. Pelvic organs: enlarged uterus. A well-defined, thick-walled, peripherally enhancing collection/lesion of approximate size 13.5 x 9.3 x 10.5 cm (mediolateral x anteroposterior x craniocaudal) with air-fluid level within and adjacent fat stranding noted in the muscular plane of anterior pelvic wall, extending into the pelvic cavity ant erior to the urinary bladder and uterus, suggestive of formed abscess. There is another hypodense collection of approximate size 5.2 x 3.3 x 3 cm (mediolateral x anteroposterior x craniocaudal) with air foci within noted in the anterior wall of uterus, superior to the dome of urinary bladder and communicating anteriorly with the above-mentioned pelvic wall abscess and posteriorly with the endometrial canal, which also shows mild hypodense collection and air foci within. A hypodense cystic lesion of approximate size 17 x 15 mm in the left adnexal region, likely left ovarian follicular cyst. No right adnexal lesion. No significant pelvic lymphadenopathy is identified. Significant fat stranding, hypo- to iso-densities and air foci noted in the subcutaneous plane of anterior pelvic wall, infective/inflammatory changes. IMPRESSION: 1. Formed abscess in the anterior pelvic wall as described. 2. Another pocket of collection noted in the anterior wall of uterus, communicating anteriorly with the above-mentioned pelvic wall abscess and posteriorly in the endometrial canal. 3. No abdominal adenopathy. 4. No ascites. Assessment/Plan Assessment/Plan Abdominal abscess Status post Hypokalemia Thrombocytosis Abdominal pain Leukocytosis, unspecified Generalized abdominal pain Plan 1. Admit to telemetry unit 2. Breathing treatment 3. Pain control management 4. IV antibiotic management 5. Management of fluids and electrolytes 6. Consultation for OBGYN/hospitalist 7. Diagnostic test abdomen/pelvis CT 8. DVT prophylaxis-on Lovenox 9. Repeat labs CBC, CMP in a.m. 10. Home medication reviewed and reconciled 11. Continue with current medical management 12. Treatment plan discussed with patient and RN. Patient verbalized understan callum. Plan discussed with: Patient, Other (RN) My Orders Orders - JEROME KEY DNP Procedure Category Date Status Time Complete Blood Count LAB 04/01/24 Verified 04:37 Comprehensive LAB 04/01/24 Verified Metabolic Panel 04:37 Vancomycin Per PHA 04/01/24 Verified Pharmacy 04:45 Levetiracetam Ivpb PHA 04/01/24 Verified Keppra 10:00 Famotidine Injection PHA 04/01/24 Verified (Pepcid Injection) 10:00 Cefepime 1 Gm PHA 04/01/24 Verified 10:00 Admit ADMIT 04/01/24 Verified 04:37 Allergies CRISTOPHER 04/01/24 Verified 04:37 Code Status CODE 04/01/24 Verified 04:37 Sodium Chloride Lock PHA 04/01/24 Verified (Saline Lock Ns) 06:00 Oxygen Per Hour RT 04/01/24 Verified 04:37 Hydrocodone-Acet PHA 04/01/24 Verified 5/325mg Tab ([place] 04:45 Ondansetron Hcl PHA 04/01/24 Verified (Zofran) 04:45 Enoxaparin Sodium PHA 04/01/24 Verified (Lovenox) 10:00 Problem List: (1) Abdominal abscess (2) Hypokalemia (3) Leukocytosis, unspecified (4) Abdominal pain (5) Thrombocytosis (6) Status post (7) Generalized abdominal pain Date of Service: Apr 01, 2024 Billing Provider: JEROME KEY DNP Common Visit Codes: [id number] INP/OBS CARE (HIGH) JEROME KEY DNP Apr 01, 2024 04:46
[2024-04-01] MEDS: SODIUM CHLOR 0.9% PF (SALINE LOCK) 10ML VIAL/SYR IV SCH (05:46)
[2024-04-01] MEDS: HYDROcodone-ACET 5/325MG TAB PO PRN (05:49)
[2024-04-01 06:04] LABS: Basophils # (auto) 0.1 10 ^3/uL (0-0.2); Eosinophils # (auto) 0 10 ^3/uL (0-0.8); Eosinophils % (auto) 0.1 % (0.0-7.0); Lymphocytes # (auto) 2.4 10 ^3/uL (0.4-5.4)
[2024-04-01 06:06] LABS: Basophils % (auto) 0.3 % (0.0-2.0); Hematocrit 29.8 % (36.0-46.0); Lymphocytes % (auto) 10.7 % (10.0-50.0); Mean Corpuscular Hemoglobin 28.3 pg (28.0-32.0); Mean Corpuscular Hgb Conc. 33.7 g/dL (32.0-36.0); Monocytes # (auto) 1.2 10 ^3/uL (0-1.3); Monocytes % (auto) 5.4 % (0.0-12.0); Neutrophils # (auto) 18.4 10 ^3/uL (1.6-8.6); Neutrophils % (auto) 83.5 % (37.0-80.0); Nucleated Red Blood Cells % 0.2 %; Platelet Count (auto) 610 10^3/uL (140-450); Red Blood Cells 3.55 10^6/uL (4.0-5.20); Red Cell Distribution Width 15.2 % (11.8-14.3)
[2024-04-01 06:09] LABS: Urine Bacteria FEW /hpf (None Seen); Urine Blood 2+ /uL (Negative); Urine Clarity Clear (Clear); Urine Color Yellow (Yellow); Urine Protein, UAD 1+ (Negative); Urine Urobilinogen Normal (Negative); Urine WBC 31 /hpf (0 - 5); Urine pH 6.5 (5.0-9.0)
[2024-04-01 06:21] LABS: Urine Specific Gravity > 1.050 (1.001-1.035)
[2024-04-01 06:50] LABS: Albumin 3.4 g/dL (3.2-4.8); Alkaline Phosphatase 137 U/L (46-116); Anion Gap 13 (5-15); Aspartate Aminotransferase 12 U/L (13-40); BUN/Creatinine Ratio 19.5 (10.0-20.0); Bilirubin, Total 0.3 mg/dL (0.2-1.0); Blood Urea Nitrogen 16 mg/dL (9-23); Calcium 8.6 mg/dL (8.7-10.4); Carbon Dioxide 19 mmol/L (20-31); Chloride 112 mmol/L (98-107); Glucose 102 mg/dL (74-106); Potassium 3.1 mmol/L (3.5-5.1); Sodium 144 mmol/L (136-145); Total Protein 6.6 g/dL (5.7-8.2)
[2024-04-01 06:57] LABS: Alanine Aminotransferase 9 U/L (7-40)
--- NOTE | 2024-04-01 09:20 | DVHINCON2 ---
Date of service: Apr 01, 2024 Reason for Consultation Abdominal Wall Abscess s/p C/Section History of Present Illness HPI 28y s/p Repeat C/S and BTL on 03/16/24. Patient had uneventful C/S and recovery course. Presented with 1 week history of chills, malaise, and now fever. Endorses lower abdominal pain, localized at the right lower quadrant, associated bouts of nausea, vomiting, and diarrhea. Complains of chills, and diaphoresis, and generalized loss of appetite unable to keep any foods down. Home Meds Active Scripts Ibuprofen (Ibuprofen) 800 Mg Tab, 800 MG PO Q8HP PRN, #30 TAB Prov:BETHANIE LOPEZ DO 03/16/24 Hydrocodone-Acetaminophen (Hydrocodone/Acetaminophen 5-325 mg) 1 Tab Tab, 1 TAB PO Q6HPRN PRN, #20 TAB Prov:BETHANIE LOPEZ DO 03/16/24 Vit W/ Ferrous Fumara ( One Daily) Daily Tab, 1 TAB PO DAILY, #90 TAB 3 Refills Prov:ROBINSON VILLAVICENCIO CNM 01/27/24 Past Medical History Cardiac: No pertinent Hx Pulmonary: No pertinent Hx Central Nervous System: Seizure GI: No pertinent Hx Hemotology/Oncology: No pertinent Hx Hepatobiliary: No pertinent Hx Psychiatric: No pertinent Hx Musculoskeletal: No pertinent Hx Rheumotologic: No pertinent Hx Infectious Disease: No peritnent Hx ENT: No pertinent Hx Renal/: No pertinent Hx Endocrine: No pertinent Hx Dermatology: No pertinent Hx Past Surgical History: , Tubal ligation Family History: No pertinent Hx Smoker: No Hx (Negative) Alocohol: None Drugs: None Lives with: Alone Domestic Violence: Neg Review of Systems Constitutional: Chills, Diaphoresis, Fever, Malaise, Weakness Ears, Nose, & Throat: No symptom reported Eyes: No symptom reported Pulmonary/Respiratory: No symptom reported Cardiovascular: No symptom reported Gastrointestinal: Nausea, Vomiting, Abdominal Pain Genitourinary: No symptom reported Musculoskeletal: Back pain, Muscle pain Skin: No symptom reported Psychiatric: No symptom reported Endocrine: No symptom reported Hemotologic/Lymphatic: No symptom reported H&P Exam Vital Signs Vital Signs Date Time Temp Pulse Resp B/P (MAP) Pulse Ox O2 Delivery O2 Flow Rate FiO2 04/01/24 08:00 98.2 109 18 100/56 (71) 96 98.2 04/01/24 01:14 Room Air* 0 21 General Appeara: Well developed, Well nourished, Normal Appearance Head Exam: Normal inspection Eye Exam: bilateral eye PERRL Abdominal Exam: Other (Pfannesteil incision well approximated, intact. Erythema present, no discharge.) Abdominal Pain Onset Location: RLQ, Suprapubic, Other (Tender mass over C/S scar) Pelvic Exam: Not done Neuro/Mental St: Alert, Oriented Appearance: Appropriate appearance Thoughts/Psych: Normal thought pattern Labs/Xrays PATIENT: DENA KILPATRICKCT: [id number] UNIT: [id number] : 1995 LOC: ER ROOM / BED: / AGE / SEX: 28 / F ADM STATUS: REG ER SERVICE 0037 ORDERING PHYSICIAN: CECIL CHUNG MD PROCEDURE(s): ABPLIV - CT AB PEL WITH IV CON ONLY REASON: 2 weeks s/p csection, worsening abdominal pain ORDER NUMBER(s): [id number], ACCESSION NUMBER(s): [id number] Examination: ABPLIV CLINICAL INDICATION: ;2 weeks s/p csection, worsening abdominal pain COMPARISON: None. CONTRAST USED: Intravenous. TECHNIQUE: A post-contrast CT study of the abdomen and pelvis is performed. The examination was performed with [address] scan was done according to ALARA (As Low as Reasonably Achievable). Multiplanar reconstructions were obtained. FINDINGS: CT ABDOMEN Visualized lower thorax: The evaluation of lung bases demonstrates no focal infiltrates or pleural effusion. Liver: The liver is enlarged in size, with the right lobe measuring approximately 18.8 cm. The portal venous radicles are normal. There is no intrahepatic biliary radicle dilatation. Gallbladder: The gallbladder is surgically absent. The common bile duct is not dilated. Pancreas: The pancreas is normal in size and shape. No focal lesion is seen within. The peripancreatic fat planes are normal. Spleen: The spleen is enlarged in size, measuring approximately 13.4 cm and does not show any focal abnormality. Retroperitoneum: Both adrenal glands are normal in size and morphology. There is no significant retroperitoneal lymphadenopathy. Bosniak class I simple renal cortical cyst of approximate size 11 mm at the lower pole of left kidney for which no routine follow-up is required. The kidneys are normal in size, with no hydronephrosis or renal calculi. Vessels: The aorta, IVC and mesenteric vessels appear unremarkable. Stomach and bowel: The bowel loops are unremarkable. There is no ascites. Skeletal system: The visualized thoracolumbar vertebrae and the pelvic bones are unremarkable. CT PELVIS Appendix: The appendix is not distinctly visualized. Colon: The colon and rectum are collapsed. Urinary bladder: Partially distended urinary bladder with circumferential soft tissue density urinary bladder wall thickening, probably due to underdistention/cystitis. Advised urinalysis correlation. Pelvic organs: enlarged uterus. A well-defined, thick-walled, peripherally enhancing collection/lesion of approximate size 13.5 x 9.3 x 10.5 cm (mediolateral x anteroposterior x craniocaudal) with air-fluid level within and adjacent fat stranding noted in the muscular plane of anterior pelvic wall, extending into the pelvic cavity anterior to the urinary bladder and uterus, suggestive of formed abscess. There is another hypodense collection of approximate size 5.2 x 3.3 x 3 cm (mediolateral x anteroposterior x craniocaudal) with air foci within noted in the anterior wall of uterus, superior to the dome of urinary bladder and communicating anteriorly with the above-mentioned pelvic wall abscess and posteriorly with the endometrial canal, which also shows mild hypodense collection and air foci within. A hypodense cystic lesion of approximate size 17 x 15 mm in the left adnexal region, likely left ovarian follicular cyst. No right adnexal lesion. No significant pelvic lymphadenopathy is identified. Significant fat stranding, hypo- to iso-densities and air foci noted in the subcutaneous plane of anterior pelvic wall, infective/inflammatory changes. IMPRESSION: 1. Formed abscess in the anterior pelvic wall as described. 2. Another pocket of collection noted in the anterior wall of uterus, communica ting anteriorly with the above-mentioned pelvic wall abscess and posteriorly in the endometrial canal. 3. No abdominal adenopathy. 4. No ascites. 5. Chronic and/or ancillary findings as described above. Electronically Signed 04/01/2024 02:48 Abbie Pagan ATED BY: DONYA MOORE MD DICTATED DATE/TIME: 04/01/24 0248 Labs Test 04/01/24 05:28 04/01/24 05:02 04/01/24 03:15 Range/Units Urine Color Yellow Yellow Urine Clarity Clear Clear Urine pH 6.5 5.0-9.0 Urine Specific Weir > 1.050 H 1.001-1.035 Urine Protein 1+ H Negative Urine Ketones Negative Negative Urine Blood 2+ H Negative /uL Urine Nitrite Negative Negative Urine Bilirubin Negative Negative Urine Urobilinogen Normal Negative mg/dL Urine Leukocyte Esterase 2+ Negative /uL Urine RBC 17 0 - 4 /hpf Urine WBC 31 0 - 5 /hpf Urine Squamous Epithelial Cells Few <5 /hpf Urine Bacteria Few H None Seen /hpf Urine Glucose Normal Normal mg/dL White Blood Count 22.0 H 4.4-10.8 10^3/uL Red Blood Count 3.55 L 4.0-5.20 10^6/uL Hemoglobin 10.0 L 12.2-16.2 g/dL Hematocrit 29.8 L 36.0-46.0 % Mean Corpuscular Volume 84.0 80.0-100.0 fL Mean Corpuscular Hemoglobin 28.3 28.0-32.0 pg Mean Corpuscular Hemoglobin Concent 33.7 32.0-36.0 g/dL Red Cell Distribution Width 15.2 H 11.8-14.3 % Platelet Count 610 H 140-450 10^3/uL Mean Platelet Volume 6.0 L 6.9-10.8 fL Neutrophils (%) (Auto) 83.5 H 37.0-80.0 % Lymphocytes (%) (Auto) 10.7 10.0-50.0 % Monocytes (%) (Auto) 5.4 0.0-12.0 % Eosinophils (%) (Auto) 0.1 0.0-7.0 % Basophils (%) (Auto) 0.3 0.0-2.0 % Neutrophils # (Auto) 18.4 H 1.6-8.6 10 ^3/uL Lymphocytes # (Auto) 2.4 0.4-5.4 10 ^3/uL Monocytes # (Auto) 1.2 0-1.3 10 ^3/uL Eosinophils # (Auto) 0 0-0.8 10 ^3/uL Basophils # (Auto) 0.1 0-0.2 10 ^3/uL Nucleated Red Blood Cells 0.2 % Sodium Level 144 136-145 mmol/L Potassium Level 3.1 L 3.5-5.1 mmol/L Chloride Level 112 H 98-107 mmol/L Carbon Dioxide Level 19 L 20-31 mmol/L Anion Gap 13 5-15 Blood Urea Nitrogen 16 9-23 mg/dL Creatinine 0.82 0.550-1.02 mg/dL Glomerular Filtration Rate Calc 99 >90 mL/min BUN/Creatinine Ratio 19.5 10.0-20.0 Serum Glucose 102 74-106 mg/dL Calcium Level 8.6 L 8.7-10.4 mg/dL Total Bilirubin 0.3 0.2-1.0 mg/dL Aspartate Amino Transferase (AST) 12 L 13-40 U/L Alanine Aminotransferase (ALT) 9 7-40 U/L Alkaline Phosphatase 137 H 46-116 U/L Total Protein 6.6 5.7-8.2 g/dL Albumin 3.4 3.2-4.8 g/dL Lactic Acid Level 1.3 0.4-2.0 mmol/L Assessment/Plan Admitting Diagnosis: Postop C/Section wound infection Abdominal wall and Pelvic Abscess History of seizures (epilepsy) Plan Admit for IV Antibiotics; Cefepime and Vancomycin Rx Recommend IR consult for possible percutaneous drainage Recommend General Surgery consult for possible open wound I&D Will follow with IM admitting team. Plan discussed with: Patient Date of Service: Apr 01, 2024 Billing Provider: BETHANIE LOPEZ DO Common Visit Codes: [id number] INP/OBS CARE (HIGH) BETHANIE LOPEZ DO Apr 01, 2024 09:20
--- NOTE | 2024-04-01 09:44 | DVH ---
CHEST RADIOGRAPH Indication:sepsis Technique: Single frontal view of the chest was obtained COMPARISON: None FINDINGS: Lines and Tubes: None Lungs: Clear Pleura: No effusion. No pneumothorax. Cardiomediastinal contours: Unremarkable Bones: Unremarkable IMPRESSION: No acute disease.
[2024-04-01] MEDS: POTASSIUM CHL 20MEQ/100ML 100 ML IV SCH (09:50)
[2024-04-01] MEDS: PIPERACILLIN-TAZO 4.5GM 100 ML IV ONE (09:50)
[2024-04-01] MEDS: ONDANSETRON HCL 4 MG/2 ML VIAL IV PRN (09:51)
[2024-04-01] MEDS: PANTOPRAZOLE 40 MG/10 ML VIAL INJ IV ONE (09:53)
[2024-04-01] MEDS: MORPHINE SULFATE INJ 2 MG/ml SYRG IV PRN (09:53)
[2024-04-01] MEDS ORDERED: FAMOTIDINE (10MG/ML) 2ML VL IV SCH (10:00)
[2024-04-01] MEDS ORDERED: CEFEPIME 1GM/ 50ML 50 ML IV SCH (10:00)
[2024-04-01] MEDS ORDERED: ENOXAPARIN SOD 40 MG/0.4 ML SYRINGE SC SCH (10:00)
[2024-04-01] MEDS: levETIRAcetam 1000 mg/100ml 100 ML IV SCH (10:05)
[2024-04-01 10:14] LABS: INR 1.31 (0.9-1.15); Partial Thromboplastin Time 37.3 SEC (24.5-34.5); Prothrombin Time 13.6 sec (9.3-11.8)
[2024-04-01 10:33] LABS: Amphetamine Screen, Urine Neg (NEGATIVE); Barbiturate Scree,Urine Neg (NEGATIVE); Benzodiazephine Screen, Urine Neg (NEGATIVE); Cocaine Screen, Urine Neg (NEGATIVE)
[2024-04-01 10:34] LABS: Cannabinoid Screen, Urine Neg (NEGATIVE); Opiate Scree,Urine Neg (NEGATIVE); Phencyclidine Screen, Urine Neg (NEGATIVE)
[2024-04-01] MEDS ORDERED: PIPERACILLIN-TAZO 4.5GM 100 ML IV SCH (12:00)
--- NOTE | 2024-04-01 12:29 | DVHPNRES ---
Progress Note Date Seen: Apr 01, 2024 Resident Creating Document: LO MARINELLI RESIDENT Medical Necessity Reason Pt with a Central, PICC or Fol: No Subjective Review of Systems 28-year-old female with past medical history of seizures(patient takes Keppra) and rheumatoid arthritis(patient does not take any medication) presented with chief complaint of fever, chills, lower abdominal pain associated with tenderness for last two weeks, that started after patient had section two weeks ago. She mentioned that she started having nausea vomiting and diarrhea since yesterday that prompted her to visit the hospital. Patient seen and examined at bedside. Patient is currently not mentioning of any nausea, vomiting, diarrhea. She is still mentioning of weakness. She denied any chest pain, shortness of breath, constipation, headache, dizziness. ROS Constitutional: Fever, chills, sweats, generalized weakness Eyes: No: Pain, Vision change, Conjunctivae inflammation, Eyelid inflammation, Other, Redness ENT: No: Ear pain, Ear discharge, Nose pain, Nose discharge, Nose congestion, Mouth pain, Mouth swelling, Throat pain, Throat swelling, Other Respiratory: No: Cough, Dry, Shortness of breath, SOB with excertion, Wheezing, Hemoptysis, Pleuritic Pain, Sputum, Wheezing, Other Cardiovascular: No: Chest Pain, Palpitations, Orthopnea, Paroxysmal Noc. Dyspnea, Edema, Lt Headedness, Other Gastrointestinal: Nausea, vomiting, diarrhea No: Constipation, Melena, Hematochezia, Other Musculoskeletal: No: other, neck pain, shoulder pain, arm pain, back pain, hand pain, leg pain, foot pain Neurological:; No: Weakness, Numbness, Incoordination, Change in speech, Confusion, Seizures Objective vital signs Vital Sign Date Time Temp Pulse Resp B/P (MAP) Pulse Ox O2 Delivery O2 Flow Rate FiO2 04/01/24 11:12 111 18 102/59 04/01/24 10:00 95 04/01/24 08:00 98.2 98.2 04/01/24 01:14 Room Air* 0 21 Total Intake and Output 03/31/24 03/31/24 04/01/24 15:00 23:00 07:00 Intake Total 1300 ml Balance 1300 ml medications Current Medications Medications Dose Ordered Sig/Johny Route Start Time Stop Time Status Last Admin Dose Admin Vancomycin HCl 0 ml @ 0 mls/hr UD IV 04/01/24 04:45 UNV Levetiracetam 100 ml @ 400 mls/hr BID IV 04/01/24 10:00 04/01/24 10:05 400 MLS/HR Sodium Chloride 10 ml Q8HR IV 04/01/24 06:00 04/01/24 05:46 10 ML Acetaminophen/ Hydrocodone Bitart 1 tab Q4HP PRN PO 04/01/24 04:45 04/01/24 05:49 1 TAB Ondansetron HCl 4 mg Q4HP PRN IV 04/01/24 04:45 04/01/24 09:51 4 MG Acetaminophen 650 mg Q6HP PRN PO 04/01/24 04:45 Morphine Sulfate 2 mg Q4HPRN PRN IV 04/01/24 04:45 04/01/24 09:53 2 MG Nitroglycerin 0.4 mg Q5MINP PRN SL 04/01/24 04:45 Morphine Sulfate 2 mg Q30M PRN IV 04/01/24 04:45 Potassium Chloride 100 ml @ 50 mls/hr Q2H IV 04/01/24 08:45 04/01/24 12:44 04/01/24 09:50 50 MLS/HR Pantoprazole Sodium 40 mg DAILY IV 04/02/24 10:00 Piperacillin Sod/ Tazobactam Sod 100 ml @ 25 mls/hr Q6HR IV 04/01/24 12:00 UNV Piperacillin Sod/ Tazobactam Sod 100 ml @ 25 mls/hr Q8H IV 04/01/24 18:00 Examination Examination General Appearance: Alert, Oriented X3, Cooperative, No acute distress HEENT: EOMI Respiratory: Clear to auscultation, Normal air movement Cardiovascular: Regular rate, Normal S1, Normal S2 Abdominal: Lower abdominal tenderness associated with palpation of swelling, horizontal scar marietta visible on the lower abdominal Extremities: No cyanosis, No edema, Normal pulses, No tenderness/swelling Skin: No rashes, No breakdown Neuro: Normal speech and tone laboratory and microbiology Laboratory Tests 04/01/24 05:02 Test 04/01/24 05:02 Range/Units Serum Glucose 102 74-106 mg/dL Labs and/or images reviewed: Labs reviewed by me, Image(s) reviewed by me Problem List/Assessment/Plan Problem List/Assessment/Plan Assessment/plan Infectious disease # sepsis due to pelvic wall abscess and anterior wall abscess of the uterus IV fluids IV antibiotics, Vanco and Zosyn Blood culture Lactic acid levels # pelvic wall abscess and anterior wall episode of the uterus -IV vancomycin plus Zosyn OBGYN consult surgery consulted by OBGYN , recommendation : scheduled for IR drainage of the pelvic abscess on Wednesday. However if her clinical situation worsens, she may need emergency surgical drainage. d/w Dr. Bhakta. GI # intractable nausea/vomiting in the setting of sepsis -IV ondansetron p.r.n. -continue clear liquid, advance as tolerated # intractable diarrhea in the setting of sepsis, improving -IV fluids -continue clear liquid diet, advance as tolerated Neurology # epilepsy Continue home medication Rheumatology # history of rheumatoid arthritis Patient does not take any active medication We will monitor OBGYN # recent history of OBGYN consult Cardiology Pulmonology Lines Midline Drips DVT prophylaxis -Low dose Lovenox 40mg SC daily Code status discussed with the patient for greater than 21 minutes, full code Case discussion with Dr. Monroy pt upgraded to BRITTANY critical time excluding procedures >53 min Plan discussed with: Patient, Other My Orders My Orders Orders - LO MARINELLI RESIDENT Procedure Category Date Status Time Mrsa Screen CHIO 04/01/24 Uncollected 08:38 Potassium Chl PHA 04/01/24 In Process 20meq/100ml 08:45 Chest Portable XY 04/01/24 Resulted 08:38 Pantoprazole PHA 04/02/24 In Process (Protonix) 10:00 Piperacillin-Tazob PHA 04/01/24 In Process 3.375gm (Zosyn 3.375g 18:00 Date of Service: Apr 01, 2024 Billing Provider: APARNA MONROY DO Common Visit Codes: [id number] INP/OBS CARE(HIGH) LO MARINELLI RESIDENT Apr 01, 2024 12:29 APARNA MONROY DO Apr 02, 2024 16:16
[2024-04-01] MEDS: ASPirin 81 mg TAB ONE (12:53)
--- NOTE | 2024-04-01 13:11 | DVHINCON2 ---
Date of service: Apr 01, 2024 History of Present Illness 28-year-old female status post with tubal ligation by Dr. Lopez of the on March 16, 2024 admitted secondary to one-week history of fevers or chills and persistent lower abdominal pain. Patient also developed some mild nausea. Past Medical History Seizure disorder with the last seizure several months ago Past Surgical History Three C-sections and tubal ligation Family History Noncontributory Social History Denies alcohol, tobacco, IV drug use Allergies: Coded Allergies: Latex (Verified Allergy, Unknown, 10/27/23) Home Meds Active Scripts Ibuprofen (Ibuprofen) 800 Mg Tab, 800 MG PO Q8HP PRN, #30 TAB Prov:BETHANIE LOPEZ DO 03/16/24 Hydrocodone-Acetaminophen (Hydrocodone/Acetaminophen 5-325 mg) 1 Tab Tab, 1 TAB PO Q6HPRN PRN, #20 TAB Prov:BETHANIE LOPEZ DO 03/16/24 Vit W/ Ferrous Fumara ( One Daily) Daily Tab, 1 TAB PO DAILY, #90 TAB 3 Refills Prov:ROBINSON VILLAVICENCIO CNM 01/27/24 Current Medications Current Medications Medications (Trade) Dose Ordered Sig/Johny Route PRN Reason Start Time Stop Time Status Last Admin Vancomycin HCl 0 ml @ 0 mls/hr UD IV 04/01/24 04:45 UNV Levetiracetam 100 ml @ 400 mls/hr BID IV 04/01/24 10:00 04/01/24 10:05 Famotidine (Pepcid Injection) 20 mg Q12HR IV 04/01/24 10:00 04/01/24 08:50 DC Cefepime HCl 50 ml @ 12.5 mls/hr Q12HR IV 04/01/24 10:00 04/01/24 08:50 DC Sodium Chloride (Saline Lock Ns) 10 ml Q8HR IV 04/01/24 06:00 04/01/24 05:46 Acetaminophen/ Hydrocodone Bitart ([place] 5/325MG Tab) 1 tab Q4HP PRN PO MODERATE PAIN (4-6 PAIN SCALE) 04/01/24 04:45 04/01/24 05:49 Ondansetron HCl (Zofran) 4 mg Q4HP PRN IV NAUSEA / VOMITING 04/01/24 04:45 04/01/24 09:51 Enoxaparin Sodium (Lovenox) 40 mg DAILY SC 04/01/24 10:00 04/01/24 08:50 DC Acetaminophen (Tylenol Tablet) 650 mg Q6HP PRN PO PAIN SCALE 1-3 OR TEMP>100.4 04/01/24 04:45 Morphine Sulfate 2 mg Q4HPRN PRN IV SEVERE PAIN (7-10 PAIN SCALE) 04/01/24 04:45 04/01/24 09:53 Nitroglycerin (Ntrostat Sublingual) 0.4 mg Q5MINP PRN SL FOR CHEST PAIN 04/01/24 04:45 Morphine Sulfate 2 mg Q30M PRN IV FOR CHEST PAIN 04/01/24 04:45 Potassium Chloride 100 ml @ 50 mls/hr Q2H IV 04/01/24 08:45 04/01/24 12:44 DC 04/01/24 10:45 Pantoprazole Sodium (Protonix) 40 mg DAILY IV 04/02/24 10:00 Piperacillin Sod/ Tazobactam Sod 100 ml @ 25 mls/hr Q6HR IV 04/01/24 12:00 UNV Piperacillin Sod/ Tazobactam Sod 100 ml @ 25 mls/hr Q8H IV 04/01/24 18:00 Vital Signs Vital Signs Date Time Temp Pulse Resp B/P (MAP) Pulse Ox O2 Delivery O2 Flow Rate FiO2 04/01/24 12:00 105 20 100/62 (75) 93 04/01/24 08:00 98.2 98.2 04/01/24 01:14 Room Air* 0 21 Physical Exam GEN: Age-appropriate female in no acute distress. Alert. HEENT: Normocephalic atraumatic. Moist mucous membranes. Anicteric sclerae. CV: Slightly tachycardic but regular rhythm. Respiratory: Clear to auscultation bilaterally. ABD: Is suprapubic tenderness to palpation with minimal guarding. Area is slightly firm to touch. Upper abdomen is soft without tenderness to palpation. CT of the abdomen and pelvis: A well-defined thick walled peripherally enhancing fluid collection consistent with a large abscess measuring 13.5 x 9.3 x 10.5 cm with air-fluid levels in the muscular plane of the anterior pelvic wall extending into the pelvic cavity anterior to the urinary bladder and uterus. There was another collection measuring 5.2 x 3.3 by 3 cm with air foci in the anterior wall of the uterus superior to the dome of the urinary bladder communicating with the larger abscess. Labs/Diagnostic Data Labs Test 04/01/24 09:36 04/01/24 05:28 04/01/24 05:02 Range/Units Prothrombin Time 13.6 H 9.3-11.8 sec Prothrombin Time INR 1.31 H 0.9-1.15 Activated Partial Thromboplast Time 37.3 H 24.5-34.5 SEC Lactic Acid Level 1.0 0.4-2.0 mmol/L Urine Color Yellow Yellow Urine Clarity Clear Clear Urine pH 6.5 5.0-9.0 Urine Specific [place] > 1.050 H 1.001-1.035 Urine Protein 1+ H Negative Urine Ketones Negative Negative Urine Blood 2+ H Negative /uL Urine Nitrite Negative Negative Urine Bilirubin Negative Negative Urine Urobilinogen Normal Negative mg/dL Urine Leukocyte Esterase 2+ Negative /uL Urine RBC 17 0 - 4 /hpf Urine WBC 31 0 - 5 /hpf Urine Squamous Epithelial Cells Few <5 /hpf Urine Bacteria Few H None Seen /hpf Urine Glucose Normal Normal mg/dL Urine Opiates Screen Neg NEGATIVE Urine Fentanyl Screen Neg NEGATIVE Urine Barbiturates Screen Neg NEGATIVE Urine Phencyclidine Screen Neg NEGATIVE Urine Amphetamines Screen Neg NEGATIVE Urine Benzodiazepines Screen Neg NEGATIVE Urine Cocaine Screen Neg NEGATIVE Urine Cannabinoids Screen Neg NEGATIVE White Blood Count 22.0 H 4.4-10.8 10^3/uL Red Blood Count 3.55 L 4.0-5.20 10^6/uL Hemoglobin 10.0 L 12.2-16.2 g/dL Hematocrit 29.8 L 36.0-46.0 % Mean Corpuscular Volume 84.0 80.0-100.0 fL Mean Corpuscular Hemoglobin 28.3 28.0-32.0 pg Mean Corpuscular Hemoglobin Concent 33.7 32.0-36.0 g/dL Red Cell Distribution Width 15.2 H 11.8-14.3 % Platelet Count 610 H 140-450 10^3/uL Mean Platelet Volume 6.0 L 6.9-10.8 fL Neutrophils (%) (Auto) 83.5 H 37.0-80.0 % Lymphocytes (%) (Auto) 10.7 10.0-50.0 % Monocytes (%) (Auto) 5.4 0.0-12.0 % Eosinophils (%) (Auto) 0.1 0.0-7.0 % Basophils (%) (Auto) 0.3 0.0-2.0 % Neutrophils # (Auto) 18.4 H 1.6-8.6 10 ^3/uL Lymphocytes # (Auto) 2.4 0.4-5.4 10 ^3/uL Monocytes # (Auto) 1.2 0-1.3 10 ^3/uL Eosinophils # (Auto) 0 0-0.8 10 ^3/uL Basophils # (Auto) 0.1 0-0.2 10 ^3/uL Nucleated Red Blood Cells 0.2 % Sodium Level 144 136-145 mmol/L Potassium Level 3.1 L 3.5-5.1 mmol/L Chloride Level 112 H 98-107 mmol/L Carbon Dioxide Level 19 L 20-31 mmol/L Anion Gap 13 5-15 Blood Urea Nitrogen 16 9-23 mg/dL Creatinine 0.82 0.550-1.02 mg/dL Glomerular Filtration Rate Calc 99 >90 mL/min BUN/Creatinine Ratio 19.5 10.0-20.0 Serum Glucose 102 74-106 mg/dL Calcium Level 8.6 L 8.7-10.4 mg/dL Total Bilirubin 0.3 0.2-1.0 mg/dL Aspartate Amino Transferase (AST) 12 L 13-40 U/L Alanine Aminotransferase (ALT) 9 7-40 U/L Alkaline Phosphatase 137 H 46-116 U/L Total Protein 6.6 5.7-8.2 g/dL Albumin 3.4 3.2-4.8 g/dL Assessment 1. Large pelvic abscesses Plan/Recommendation 1. Patient was scheduled for IR drainage of the pelvic abscess on Wednesday. However if her clinical situation worsens, she may need emergency surgical drainage. d/w Dr. Lopez. Plan discussed with: Patient ALMA DELIA CONTI MD Apr 01, 2024 13:11
[2024-04-01] MEDS: ACETAMINOPHEN 325 MG TAB PO PRN (14:19)
[2024-04-01] MEDS: VANCOMYCIN 1GM/250ML KIT 200 ML IV SCH (15:00)
[2024-04-01] MEDS: SODIUM CHLORIDE 0.9% 500 ML IV ONE (16:00)
[2024-04-01] MEDS ORDERED: diphenhdrAMINE HCL 50 MG/1 ML VL IV PRN (17:00)
[2024-04-01] MEDS: diphenhdrAMINE HCL 50 MG/1 ML VL ONE (17:01)
[2024-04-01] MEDS: diphenhdrAMINE HCL 50 MG/1 ML VL IV ONE (17:02)
[2024-04-01] MEDS: PIPERACILLIN-TAZOB 3.375GM 100 ML IV SCH (18:22)
--- NOTE | 2024-04-01 22:19 | DVHINCON2 ---
Date of service: Apr 01, 2024 Referring Physician Jovani Orona NP Reason for Consultation Dyspnea History of Present Illness A 28-year-old woman with past medical history of seizures who presented on 04/01/24 with complaint of generalized abdominal pain. Patient is s/p x3, last one about 2 weeks prior to presentation. Patient states she started having lower abdominal pain localized at the RLQ with associated nausea, vomiting, diarrhea, unable to keep any food down, chills, diaphoresis, generalized loss of appetite, generalized weakness that prompted this visit. Labs in ED showed elevated WBC 23.7, hemoglobin 10.3, hematocrit 30.9, platelets 697, sodium 144, potassium 2.6, BUN 18, creatinine 0.98, GFR 80, glucose 108. Abdomen/pelvis CT revealed formed abscess in the anterior pelvic wall; another pocket of collection noted in the anterior wall of uterus, communicating anteriorly with the above mentioned pelvic wall abscess and posteriorly in the endometrial canal. Patient was admitted for further care and pulmonary consultation is requested for evaluation and management d/t above findings. Review of Systems: 14-point review of systems negative unless otherwise noted above. Past Medical History: Seizures Past Surgical History: BTL, Cholecystectomy, x3 Medications: Reviewed. Allergies: Latex. Family History: No family history of premature CAD. No family history of lung disorders. Social History: Nonsmoker. No alcohol or illicit drug use. Allergies: Coded Allergies: Latex (Verified Allergy, Unknown, 10/27/23) Home Meds Active Scripts Ibuprofen (Ibuprofen) 800 Mg Tab, 800 MG PO Q8HP PRN, #30 TAB Prov:BETHANIE LOPEZ DO 03/16/24 Hydrocodone-Acetaminophen (Hydrocodone/Acetaminophen 5-325 mg) 1 Tab Tab, 1 TAB PO Q6HPRN PRN, #20 TAB Prov:BETHANIE LOPEZ DO 03/16/24 Vit W/ Ferrous Fumara ( One Daily) Daily Tab, 1 TAB PO DAILY, #90 TAB 3 Refills Prov:ROBINSON VILLAVICENCIO CNM 01/27/24 Current Medications Current Medications Medications (Trade) Dose Ordered Sig/Johny Route PRN Reason Start Time Stop Time Status Last Admin Vancomycin HCl 0 ml @ 0 mls/hr UD IV 04/01/24 04:45 Levetiracetam 100 ml @ 400 mls/hr BID IV 04/01/24 10:00 04/01/24 21:41 Famotidine (Pepcid Injection) 20 mg Q12HR IV 04/01/24 10:00 04/01/24 08:50 DC Cefepime HCl 50 ml @ 12.5 mls/hr Q12HR IV 04/01/24 10:00 04/01/24 08:50 DC Sodium Chloride (Saline Lock Ns) 10 ml Q8HR IV 04/01/24 06:00 04/01/24 14:19 Acetaminophen/ Hydrocodone Bitart ([place] 5/325MG Tab) 1 tab Q4HP PRN PO MODERATE PAIN (4-6 PAIN SCALE) 04/01/24 04:45 04/01/24 21:07 Ondansetron HCl (Zofran) 4 mg Q4HP PRN IV NAUSEA / VOMITING 04/01/24 04:45 04/01/24 09:51 Enoxaparin Sodium (Lovenox) 40 mg DAILY SC 04/01/24 10:00 04/01/24 08:50 DC Acetaminophen (Tylenol Tablet) 650 mg Q6HP PRN PO PAIN SCALE 1-3 OR TEMP>100.4 04/01/24 04:45 04/01/24 14:19 Morphine Sulfate 2 mg Q4HPRN PRN IV SEVERE PAIN (7-10 PAIN SCALE) 04/01/24 04:45 04/01/24 09:53 Nitroglycerin (Ntrostat Sublingual) 0.4 mg Q5MINP PRN SL FOR CHEST PAIN 04/01/24 04:45 Morphine Sulfate 2 mg Q30M PRN IV FOR CHEST PAIN 04/01/24 04:45 Potassium Chloride 100 ml @ 50 mls/hr Q2H IV 04/01/24 08:45 04/01/24 12:44 DC 04/01/24 10:45 Pantoprazole Sodium (Protonix) 40 mg DAILY IV 04/02/24 10:00 Piperacillin Sod/ Tazobactam Sod 100 ml @ 25 mls/hr Q6HR IV 04/01/24 12:00 UNV Piperacillin Sod/ Tazobactam Sod 100 ml @ 25 mls/hr Q8H IV 04/01/24 18:00 04/01/24 18:22 Vancomycin HCl 200 ml @ 200 mls/hr Q12H IV 04/01/24 15:00 04/01/24 15:00 Diphenhydramine HCl (Benadryl Injection) 25 mg Q6HP PRN IV FOR ITCHING 04/01/24 17:00 Enoxaparin Sodium (Lovenox) 40 mg DAILY SC 04/02/24 10:00 Vital Signs Vital Signs Date Time Temp Pulse Resp B/P (MAP) Pulse Ox O2 Delivery O2 Flow Rate FiO2 04/01/24 20:50 99.1 112 16 120/79 (93) 98 99.1 04/01/24 20:50 Nasal Cannula* 2 28 Physical Exam Gen.: Patient lying in bed in no apparent distress. Breathing on room air. Head: Normocephalic, atraumatic. Eyes: EOMI/PERRLA. Ears: Normal hearing. Normal anatomy. Neck/trachea: Trachea midline, supple. Nose: Normal external anatomy. Mouth: Moist mucous membranes. Chest: Decreased air entry bilaterally. No wheezing or rhonchi. Cardiovascular: Positive S1, positive S2. Regular rate and rhythm. Abdomen: Positive bowel sounds in all 4 quadrants. Soft, non-tender, non-distended. : Deferred. Rectal: Deferred. Skin: Warm, dry. Intact. Extremities: 2+ radial pulses bilaterally. No lower extremity edema. Neuro: Awake, alert, oriented x3. No gross motor or sensory deficits. Cranial nerves II through XII intact. Gait not assessed. Labs/Diagnostic Data Labs Test 04/01/24 09:36 04/01/24 05:28 04/01/24 05:02 Range/Units Prothrombin Time 13.6 H 9.3-11.8 sec Prothrombin Time INR 1.31 H 0.9-1.15 Activated Partial Thromboplast Time 37.3 H 24.5-34.5 SEC Lactic Acid Level 1.0 0.4-2.0 mmol/L Urine Color Yellow Yellow Urine Clarity Clear Clear Urine pH 6.5 5.0-9.0 Urine Specific [place] > 1.050 H 1.001-1.035 Urine Protein 1+ H Negative Urine Ketones Negative Negative Urine Blood 2+ H Negative /uL Urine Nitrite Negative Negative Urine Bilirubin Negative Negative Urine Urobilinogen Normal Negative mg/dL Urine Leukocyte Esterase 2+ Negative /uL Urine RBC 17 0 - 4 /hpf Urine WBC 31 0 - 5 /hpf Urine Squamous Epithelial Cells Few <5 /hpf Urine Bacteria Few H None Seen /hpf Urine Glucose Normal Normal mg/dL Urine Opiates Screen Neg NEGATIVE Urine Fentanyl Screen Neg NEGATIVE Urine Barbiturates Screen Neg NEGATIVE Urine Phencyclidine Screen Neg NEGATIVE Urine Amphetamines Screen Neg NEGATIVE Urine Benzodiazepines Screen Neg NEGATIVE Urine Cocaine Screen Neg NEGATIVE Urine Cannabinoids Screen Neg NEGATIVE White Blood Count 22.0 H 4.4-10.8 10^3/uL Red Blood Count 3.55 L 4.0-5.20 10^6/uL Hemoglobin 10.0 L 12.2-16.2 g/dL Hematocrit 29.8 L 36.0-46.0 % Mean Corpuscular Volume 84.0 80.0-100.0 fL Mean Corpuscular Hemoglobin 28.3 28.0-32.0 pg Mean Corpuscular Hemoglobin Concent 33.7 32.0-36.0 g/dL Red Cell Distribution Width 15.2 H 11.8-14.3 % Platelet Count 610 H 140-450 10^3/uL Mean Platelet Volume 6.0 L 6.9-10.8 fL Neutrophils (%) (Auto) 83.5 H 37.0-80.0 % Lymphocytes (%) (Auto) 10.7 10.0-50.0 % Monocytes (%) (Auto) 5.4 0.0-12.0 % Eosinophils (%) (Auto) 0.1 0.0-7.0 % Basophils (%) (Auto) 0.3 0.0-2.0 % Neutrophils # (Auto) 18.4 H 1.6-8.6 10 ^3/uL Lymphocytes # (Auto) 2.4 0.4-5.4 10 ^3/uL Monocytes # (Auto) 1.2 0-1.3 10 ^3/uL Eosinophils # (Auto) 0 0-0.8 10 ^3/uL Basophils # (Auto) 0.1 0-0.2 10 ^3/uL Nucleated Red Blood Cells 0.2 % Sodium Level 144 136-145 mmol/L Potassium Level 3.1 L 3.5-5.1 mmol/L Chloride Level 112 H 98-107 mmol/L Carbon Dioxide Level 19 L 20-31 mmol/L Anion Gap 13 5-15 Blood Urea Nitrogen 16 9-23 mg/dL Creatinine 0.82 0.550-1.02 mg/dL Glomerular Filtration Rate Calc 99 >90 mL/min BUN/Creatinine Ratio 19.5 10.0-20.0 Serum Glucose 102 74-106 mg/dL Calcium Level 8.6 L 8.7-10.4 mg/dL Total Bilirubin 0.3 0.2-1.0 mg/dL Aspartate Amino Transferase (AST) 12 L 13-40 U/L Alanine Aminotransferase (ALT) 9 7-40 U/L Alkaline Phosphatase 137 H 46-116 U/L Total Protein 6.6 5.7-8.2 g/dL Albumin 3.4 3.2-4.8 g/dL Assessment Impression: Dyspnea Diarrhea S/p section Abdominal abscess Hypokalemia Obesity, BMI 35.5 Plan: Supplemental oxygen PRN Titrate to keep O2 sats above 92%. Continue antibiotics - Zosyn. Incentive spirometry Pain control Avoid oversedation Surgery plans for drainage of abscess. Monitor renal function. Monitor electrolytes. Supplement as necessary. Monitor ins and outs. Potassium supplementation DVT prophylaxis. Prognosis: Poor given patient's multiple co-morbidities. Rest of plan per hospitalist and other consultants. Thank you Jovani Orona NP, for allowing me to participate in this patient's care. Further recommendations will depend on the patient's clinical course. Please do not hesitate to contact me if you have any questions or concerns. This medical document was created using an electronic medical record system with [employer] dictation system. Although these documentations are being carefully reviewed, there may still be some phonetic and typographical changes. The errors are purely typographical, due to imperfection on the software program, and do not reflect any compromise in the patient's medical care. Plan discussed with: Other (VINCE Jack, VEE Orona MD) AALIYAH CARVALHO MD Apr 01, 2024 22:19
[2024-04-02] VITALS (27 sets, daily range): BP systolic 94–146; BP diastolic 56–82; PULSE 100–126; RESP 13–25; TEMP 98.9–103.7; O2SAT 92–100
[2024-04-02 05:25] LABS: Eosinophils # (auto) 0 10 ^3/uL (0-0.8); Eosinophils % (auto) 0.2 % (0.0-7.0); Nucleated Red Blood Cells % 0.1 %
[2024-04-02 05:28] LABS: Basophils # (auto) 0.1 10 ^3/uL (0-0.2); Basophils % (auto) 0.4 % (0.0-2.0); Hematocrit 27.7 % (36.0-46.0); Hemoglobin 9.1 g/dL (12.2-16.2); Lymphocytes # (auto) 2.3 10 ^3/uL (0.4-5.4); Lymphocytes % (auto) 13.9 % (10.0-50.0); Mean Corpuscular Hemoglobin 27.4 pg (28.0-32.0); Mean Corpuscular Hgb Conc. 32.7 g/dL (32.0-36.0); Mean Corpuscular Volume 83.8 fL (80.0-100.0); Monocytes # (auto) 0.8 10 ^3/uL (0-1.3); Monocytes % (auto) 5.2 % (0.0-12.0); Neutrophils # (auto) 13.1 10 ^3/uL (1.6-8.6); Neutrophils % (auto) 80.3 % (37.0-80.0); Platelet Count (auto) 564 10^3/uL (140-450); Red Cell Distribution Width 14.6 % (11.8-14.3); White Blood Cell 16.3 10^3/uL (4.4-10.8)
[2024-04-02 05:45] LABS: Alanine Aminotransferase 10 U/L (7-40); Albumin 2.8 g/dL (3.2-4.8); Alkaline Phosphatase 123 U/L (46-116); Anion Gap 10 (5-15); Aspartate Aminotransferase 10 U/L (13-40); BUN/Creatinine Ratio 10.5 (10.0-20.0); Bilirubin, Total 0.4 mg/dL (0.2-1.0); Blood Urea Nitrogen 8 mg/dL (9-23); Calcium 8.3 mg/dL (8.7-10.4); Carbon Dioxide 21 mmol/L (20-31); Chloride 109 mmol/L (98-107); Glucose 86 mg/dL (74-106); Potassium 2.8 mmol/L (3.5-5.1); Sodium 140 mmol/L (136-145); Total Protein 5.7 g/dL (5.7-8.2)
[2024-04-02] MEDS: POTASSIUM CHL 20MEQ/100ML 100 ML IV SCH (06:58)
--- NOTE | 2024-04-02 08:16 | DVHPN2 ---
Progress Note - Dictate Date Seen: Apr 02, 2024 Medical Necessity Reason Pt with a Central, PICC or Fol: No Subjective E: no major events o/n. BRITTANY status. c/o lower abd pain. vital signs Vital Sign Date Time Temp Pulse Resp B/P (MAP) Pulse Ox O2 Delivery O2 Flow Rate FiO2 04/02/24 07:00 114 25 118/71 (87) 96 04/02/24 04:00 98.9 98.9 04/01/24 20:50 Nasal Cannula* 2 28 Total Intake and Output 04/01/24 04/01/24 04/02/24 15:00 23:00 07:00 Intake Total 1100 ml 400 ml 750 ml Output Total 0 ml Balance 1100 ml 400 ml 750 ml medications Current Medications Medications Dose Ordered Sig/Johny Route Start Time Stop Time Status Last Admin Dose Admin Vancomycin HCl 0 ml @ 0 mls/hr UD IV 04/01/24 04:45 Levetiracetam 100 ml @ 400 mls/hr BID IV 04/01/24 10:00 04/01/24 21:41 400 MLS/HR Sodium Chloride 10 ml Q8HR IV 04/01/24 06:00 04/02/24 06:00 10 ML Acetaminophen/ Hydrocodone Bitart 1 tab Q4HP PRN PO 04/01/24 04:45 04/02/24 06:57 1 TAB Ondansetron HCl 4 mg Q4HP PRN IV 04/01/24 04:45 04/01/24 09:51 4 MG Acetaminophen 650 mg Q6HP PRN PO 04/01/24 04:45 04/01/24 14:19 650 MG Morphine Sulfate 2 mg Q4HPRN PRN IV 04/01/24 04:45 04/01/24 09:53 2 MG Nitroglycerin 0.4 mg Q5MINP PRN SL 04/01/24 04:45 Morphine Sulfate 2 mg Q30M PRN IV 04/01/24 04:45 Pantoprazole Sodium 40 mg DAILY IV 04/02/24 10:00 Piperacillin Sod/ Tazobactam Sod 100 ml @ 25 mls/hr Q6HR IV 04/01/24 12:00 UNV Piperacillin Sod/ Tazobactam Sod 100 ml @ 25 mls/hr Q8H IV 04/01/24 18:00 04/02/24 01:53 25 MLS/HR Vancomycin HCl 200 ml @ 200 mls/hr Q12H IV 04/01/24 15:00 04/02/24 03:29 200 MLS/HR Diphenhydramine HCl 25 mg Q6HP PRN IV 04/01/24 17:00 Enoxaparin Sodium 40 mg DAILY SC 04/02/24 10:00 Potassium Chloride 100 ml @ 50 mls/hr Q2H IV 04/02/24 06:45 04/02/24 10:44 04/02/24 06:58 50 MLS/HR objective GEN: NAD ABD: lower quadrant TTP with guarding. laboratory and microbiology Laboratory Tests 04/02/24 05:02 Test 04/02/24 05:02 Range/Units Serum Glucose 86 74-106 mg/dL Assessment/Plan A: 1. Large pelvic abscesses P: 1. IR drainage tomorrow. Plan discussed with: Patient ALMA DELIA CONTI MD Apr 02, 2024 08:16
[2024-04-02] MEDS: PANTOPRAZOLE 40 MG/10 ML VIAL INJ IV SCH (10:43)
--- NOTE | 2024-04-02 11:18 | DVHPN2 ---
Subjective Progress Notes Subjective Abd wall Abscess and Pelvic Abscess s/p C/Section x 2 wk ago Patient on IV antibiotics and MS for pain control Tolerating PO liquids. Objective PHYSICAL EXAM Physical Exam: Alert, NAD Abd: tenderness and mass over C/S incision, no drainage Ext Soft, NT Vital Signs and I&O Vital Signs Date Time Temp Pulse Resp B/P (MAP) Pulse Ox O2 Delivery O2 Flow Rate FiO2 04/02/24 08:48 109 14 102/65 04/02/24 08:00 100.8 94 100.8 04/01/24 20:50 Nasal Cannula* 2 28 Intake and Output 04/02/24 07:00 Intake Total 2250 ml Output Total 0 ml Balance 2250 ml Intake Oral 500 ml IV Total 1750 ml Output Stool Total 0 ml # Voids 3 Lab results Laboratory Tests Test 04/01/24 00:50 04/01/24 03:15 04/01/24 05:02 04/01/24 05:28 Range/Units White Blood Count 23.7 H 22.0 H 4.4-10.8 10^3/uL Red Blood Count 3.71 L 3.55 L 4.0-5.20 10^6/uL Hemoglobin 10.3 L 10.0 L 12.2-16.2 g/dL Hematocrit 30.9 L 29.8 L 36.0-46.0 % Mean Corpuscular Volume 83.4 84.0 80.0-100.0 fL Mean Corpuscular Hemoglobin 27.9 L 28.3 28.0-32.0 pg Mean Corpuscular Hemoglobin Concent 33.5 33.7 32.0-36.0 g/dL Red Cell Distribution Width 14.9 H 15.2 H 11.8-14.3 % Platelet Count 697 H 610 H 140-450 10^3/uL Mean Platelet Volume 6.0 L 6.0 L 6.9-10.8 fL Neutrophils (%) (Auto) 87.8 H 83.5 H 37.0-80.0 % Lymphocytes (%) (Auto) 5.9 L 10.7 10.0-50.0 % Monocytes (%) (Auto) 6.2 5.4 0.0-12.0 % Eosinophils (%) (Auto) 0.0 0.1 0.0-7.0 % Basophils (%) (Auto) 0.1 0.3 0.0-2.0 % Neutrophils # (Auto) 20.8 H 18.4 H 1.6-8.6 10 ^3/uL Lymphocytes # (Auto) 1.4 2.4 0.4-5.4 10 ^3/uL Monocytes # (Auto) 1.5 H 1.2 0-1.3 10 ^3/uL Eosinophils # (Auto) 0 0 0-0.8 10 ^3/uL Basophils # (Auto) 0 0.1 0-0.2 10 ^3/uL Nucleated Red Blood Cells 0.0 0.2 % Sodium Level 144 144 136-145 mmol/L Potassium Level 2.6 L 3.1 L 3.5-5.1 mmol/L Chloride Level 109 H 112 H 98-107 mmol/L Carbon Dioxide Level 23 19 L 20-31 mmol/L Anion Gap 12 13 5-15 Blood Urea Nitrogen 18 16 9-23 mg/dL Creatinine 0.98 0.82 0.550-1.02 mg/dL Glomerular Filtration Rate Calc 80 99 >90 mL/min BUN/Creatinine Ratio 18.4 19.5 10.0-20.0 Serum Glucose 108 H 102 74-106 mg/dL Calcium Level 9.2 8.6 L 8.7-10.4 mg/dL Total Bilirubin 0.4 0.3 0.2-1.0 mg/dL Aspartate Amino Transferase (AST) 14 12 L 13-40 U/L Alanine Aminotransferase (ALT) 12 9 7-40 U/L Alkaline Phosphatase 154 H 137 H 46-116 U/L Total Protein 7.2 6.6 5.7-8.2 g/dL Albumin 3.8 3.4 3.2-4.8 g/dL Lactic Acid Level 1.3 0.4-2.0 mmol/L Urine Color Yellow Yellow Urine Clarity Clear Clear Urine pH 6.5 5.0-9.0 Urine Specific [place] > 1.050 H 1.001-1.035 Urine Protein 1+ H Negative Urine Ketones Negative Negative Urine Blood 2+ H Negative /uL Urine Nitrite Negative Negative Urine Bilirubin Negative Negative Urine Urobilinogen Normal Negative mg/dL Urine Leukocyte Esterase 2+ Negative /uL Urine RBC 17 0 - 4 /hpf Urine WBC 31 0 - 5 /hpf Urine Squamous Epithelial Cells Few <5 /hpf Urine Bacteria Few H None Seen /hpf Urine Glucose Normal Normal mg/dL Urine Opiates Screen Neg NEGATIVE Urine Fentanyl Screen Neg NEGATIVE Urine Barbiturates Screen Neg NEGATIVE Urine Phencyclidine Screen Neg NEGATIVE Urine Amphetamines Screen Neg NEGATIVE Urine Benzodiazepines Screen Neg NEGATIVE Urine Cocaine Screen Neg NEGATIVE Urine Cannabinoids Screen Neg NEGATIVE Test 04/01/24 09:36 04/02/24 05:02 Range/Units Prothrombin Time 13.6 H 9.3-11.8 sec Prothrombin Time INR 1.31 H 0.9-1.15 Activated Partial Thromboplast Time 37.3 H 24.5-34.5 SEC Lactic Acid Level 1.0 0.4-2.0 mmol/L White Blood Count 16.3 #H 4.4-10.8 10^3/uL Red Blood Count 3.30 L 4.0-5.20 10^6/uL Hemoglobin 9.1 L 12.2-16.2 g/dL Hematocrit 27.7 L 36.0-46.0 % Mean Corpuscular Volume 83.8 80.0-100.0 fL Mean Corpuscular Hemoglobin 27.4 L 28.0-32.0 pg Mean Corpuscular Hemoglobin Concent 32.7 32.0-36.0 g/dL Red Cell Distribution Width 14.6 H 11.8-14.3 % Platelet Count 564 H 140-450 10^3/uL Mean Platelet Volume 6.0 L 6.9-10.8 fL Neutrophils (%) (Auto) 80.3 H 37.0-80.0 % Lymphocytes (%) (Auto) 13.9 10.0-50.0 % Monocytes (%) (Auto) 5.2 0.0-12.0 % Eosinophils (%) (Auto) 0.2 0.0-7.0 % Basophils (%) (Auto) 0.4 0.0-2.0 % Neutrophils # (Auto) 13.1 H 1.6-8.6 10 ^3/uL Lymphocytes # (Auto) 2.3 0.4-5.4 10 ^3/uL Monocytes # (Auto) 0.8 0-1.3 10 ^3/uL Eosinophils # (Auto) 0 0-0.8 10 ^3/uL Basophils # (Auto) 0.1 0-0.2 10 ^3/uL Nucleated Red Blood Cells 0.1 % Sodium Level 140 136-145 mmol/L Potassium Level 2.8 L 3.5-5.1 mmol/L Chloride Level 109 H 98-107 mmol/L Carbon Dioxide Level 21 20-31 mmol/L Anion Gap 10 5-15 Blood Urea Nitrogen 8 L 9-23 mg/dL Creatinine 0.76 0.550-1.02 mg/dL Glomerular Filtration Rate Calc 108 >90 mL/min BUN/Creatinine Ratio 10.5 10.0-20.0 Serum Glucose 86 74-106 mg/dL Calcium Level 8.3 L 8.7-10.4 mg/dL Magnesium Level 2.0 1.6-2.6 mg/dL Total Bilirubin 0.4 0.2-1.0 mg/dL Aspartate Amino Transferase (AST) 10 L 13-40 U/L Alanine Aminotransferase (ALT) 10 7-40 U/L Alkaline Phosphatase 123 H 46-116 U/L Total Protein 5.7 5.7-8.2 g/dL Albumin 2.8 L 3.2-4.8 g/dL Assessment and Plan ASSESSMENT AND PLAN Assessment and Plan Pelvic and Abd wall abscesses s/p C/S Plan: Continue IV fluids, IV antibiotics Hold Lovenox today, NPO after MN for poss IR drainage tomorrow Plan discussed w/ RN and patient My orders: Orders - BETHANIE LOPEZ DO * Radiologist Consult (04/01/24 09:20) * Surgical Consult (04/01/24 ) Npo After Midnight (04/03/24 Breakfast) Sod Chl 0.9%/ Kcl 20meq (04/02/24 12:00) Plan discussed with: Patient, Other (RN) Date of Service: Apr 02, 2024 Billing Provider: BETHANIE LOPEZ DO Common Visit Codes: [id number] INP/OBS CARE(MOD) BETHANIE LOPEZ DO Apr 02, 2024 11:18
[2024-04-02] MEDS: ENOXAPARIN SOD 40 MG/0.4 ML SYRINGE SC SCH (12:52)
[2024-04-02] MEDS: SOD CHL 0.9%/ KCL 20MEQ 1,000 ML IV SCH (12:52)
--- NOTE | 2024-04-02 16:17 | DVHPN2 ---
Reviewed: Care Plan, H&P Changes from previous H/P or p: No Changes Eyes: No Pain, No Vision change, No Conjunctivae inflammation, No Eyelid inflammation, No Other, No Redness ENT: No Ear pain, No Ear discharge, No Nose pain, No Nose discharge, No Nose congestion, No Mouth pain, No Mouth swelling, No Throat pain, No Throat swelling, No Other Cardiovascular: No Chest Pain, No Palpitations, No Orthopnea, No Paroxysmal Noc. Dyspnea, No Edema, No Lt Headedness, No Other Respiratory: No Cough, No Dry, No Shortness of breath, No SOB with excertion, No Wheezing, No Hemoptysis, No Pleuritic Pain, No Sputum, No Other Gastrointestinal: Nausea, Vomiting, Abdominal Pain, Diarrhea; No Constipation, No Melena, No Hematochezia, No Other Genitourinary: No Dysuria, No Frequency, No Incontinence, No Hematuria, No Retention, No Other Musculoskeletal: No other, No neck pain, No shoulder pain, No arm pain, No back pain, No hand pain, No leg pain, No foot pain Skin: No Rash, No Lesions, No Jaundice, No Bruising, No Other Objective Vitals Vital Signs Date Time Temp Pulse Resp B/P (MAP) Pulse Ox O2 Delivery O2 Flow Rate FiO2 04/02/24 13:46 110 16 114/71 04/02/24 12:00 99.6 99 99.6 04/02/24 08:00 Nasal Cannula* 2 28 Intake/Output Intake and Output 04/02/24 06:59 Intake Total 2250 ml Output Total 0 ml Balance 2250 ml Intake Oral 500 ml IV Total 1750 ml Output Stool Total 0 ml # Voids 3 General Appearance: Alert, Oriented X3 Cardiovascular: Regular rate, Normal S1, Normal S2 Abdomen: Normal bowel sounds Medications Current Medications Medications Dose Ordered Sig/Johny Route Start Time Stop Time Status Last Admin Dose Admin Vancomycin HCl 0 ml @ 0 mls/hr UD IV 04/01/24 04:45 Levetiracetam 100 ml @ 400 mls/hr BID IV 04/01/24 10:00 04/02/24 10:44 400 MLS/HR Sodium Chloride 10 ml Q8HR IV 04/01/24 06:00 04/02/24 12:52 10 ML Acetaminophen/ Hydrocodone Bitart 1 tab Q4HP PRN PO 04/01/24 04:45 04/02/24 06:57 1 TAB Ondansetron HCl 4 mg Q4HP PRN IV 04/01/24 04:45 04/01/24 09:51 4 MG Acetaminophen 650 mg Q6HP PRN PO 04/01/24 04:45 04/01/24 14:19 650 MG Morphine Sulfate 2 mg Q4HPRN PRN IV 04/01/24 04:45 04/02/24 13:16 2 MG Nitroglycerin 0.4 mg Q5MINP PRN SL 04/01/24 04:45 Morphine Sulfate 2 mg Q30M PRN IV 04/01/24 04:45 Pantoprazole Sodium 40 mg DAILY IV 04/02/24 10:00 04/02/24 10:43 40 MG Piperacillin Sod/ Tazobactam Sod 100 ml @ 25 mls/hr Q6HR IV 04/01/24 12:00 UNV Piperacillin Sod/ Tazobactam Sod 100 ml @ 25 mls/hr Q8H IV 04/01/24 18:00 04/02/24 12:52 25 MLS/HR Vancomycin HCl 200 ml @ 200 mls/hr Q12H IV 04/01/24 15:00 04/02/24 18:00 04/02/24 15:30 200 MLS/HR Diphenhydramine HCl 25 mg Q6HP PRN IV 04/01/24 17:00 Enoxaparin Sodium 40 mg DAILY SC 04/02/24 10:00 Potassium Chloride/Sodium Chloride 1,000 ml @ 100 mls/hr Q10H IV 04/02/24 12:00 04/02/24 12:52 100 MLS/HR Vancomycin HCl 200 ml @ 200 mls/hr Q10H IV 04/03/24 01:00 Laboratory Results Laboratory Tests 04/02/24 05:02 Chemistry Test 04/02/24 05:02 Albumin 2.8 g/dL (3.2-4.8) L Calcium Level 8.3 mg/dL (8.7-10.4) L Magnesium Level 2.0 mg/dL (1.6-2.6) Total Protein 5.7 g/dL (5.7-8.2) LFT Test 04/02/24 05:02 Alanine Aminotransferase (ALT) 10 U/L (7-40) Alkaline Phosphatase 123 U/L (46-116) H Aspartate Amino Transferase (AST) 10 U/L (13-40) L Total Bilirubin 0.4 mg/dL (0.2-1.0) Urinalysis Test 04/01/24 05:28 Urine Color Yellow (Yellow) Urine Clarity Clear (Clear) Urine pH 6.5 (5.0-9.0) Urine Specific [place] > 1.050 (1.001-1.035) Urine Protein 1+ (Negative) H Urine Ketones Negative (Negative) Urine Blood 2+ /uL (Negative) H Urine Nitrite Negative (Negative) Urine Bilirubin Negative (Negative) Urine Urobilinogen Normal mg/dL (Negative) Urine Leukocyte Esterase 2+ /uL (Negative) Urine RBC 17 /hpf (0 - 4) Urine WBC 31 /hpf (0 - 5) Urine Squamous Epithelial Cells Few /hpf (<5) Urine Bacteria Few /hpf (None Seen) H Urine Glucose Normal mg/dL (Normal) Microbiology Microbiology Date/Time Source Procedure Growth Status 04/01/24 20:35 Nose MRSA Screen - Final Complete 04/01/24 03:15 Blood Blood Culture - Preliminary NO GROWTH AFTER 24 HOURS OF INCUBATION. Resulted Labs and/or images reviewed: Labs reviewed by me, Image(s) reviewed by me Assessment/Plan Assessment/Plan # sepsis due to pelvic wall abscess and anterior wall abscess of the uterus IV fluids IV antibiotics, Vanco and Zosyn Blood culture Lactic acid levels # pelvic wall abscess and anterior wall episode of the uterus -IV vancomycin plus Zosyn OBGYN consult surgery consulted by OBGYN , recommendation : scheduled for IR drainage of the pelvic abscess on Wednesday. However if her clinical situation worsens, she may need emergency surgical drainage. d/w Dr. Bhakta. # intractable nausea/vomiting in the setting of sepsis -IV ondansetron p.r.n. -continue clear liquid, advance as tolerated # intractable diarrhea in the setting of sepsis, improving -IV fluids -continue clear liquid diet, advance as tolerated # epilepsy Continue home medication # history of rheumatoid arthritis Patient does not take any active medication We will monitor # recent history of OBGYN consult Lines Midline DVT prophylaxis -Low dose Lovenox 40mg SC daily continue to be monitored in [place] awaiting for gen surg to evaluate and possible surgery on Wednesday Plan discussed with: Patient Date of Service: Apr 02, 2024 Billing Provider: APARNA MONROY DO Common Visit Codes: [id number] CARE 30-74 MIN APARNA MONROY DO Apr 02, 2024 16:17
[2024-04-02] MEDS: ACETAMINOPHEN 325 MG TAB PO PRN (16:53)
[2024-04-02] MEDS: POTASSIUM CHL 20MEQ/100ML 100 ML IV ONE (19:41)
[2024-04-02 20:47] LABS: INR 1.29 (0.9-1.15); Partial Thromboplastin Time 35.2 SEC (24.5-34.5); Prothrombin Time 13.4 sec (9.3-11.8)
--- NOTE | 2024-04-02 21:33 | DVHPN2 ---
Progress Note - Dictate Date Seen: Apr 02, 2024 Medical Necessity Reason Pt with a Central, PICC or Fol: No Subjective Patient seen and examined at bedside. Remains on supplemental oxygen Overnight events reviewed. vital signs Vital Sign Date Time Temp Pulse Resp B/P (MAP) Pulse Ox O2 Delivery O2 Flow Rate FiO2 04/02/24 20:30 110 15 100 04/02/24 20:00 100.0 100.0 04/02/24 20:00 Nasal Cannula* 1 24 Total Intake and Output 04/01/24 04/01/24 04/02/24 15:00 23:00 07:00 Intake Total 1100 ml 400 ml 750 ml Output Total 0 ml Balance 1100 ml 400 ml 750 ml medications Current Medications Medications Dose Ordered Sig/Johny Route Start Time Stop Time Status Last Admin Dose Admin Vancomycin HCl 0 ml @ 0 mls/hr UD IV 04/01/24 04:45 Levetiracetam 100 ml @ 400 mls/hr BID IV 04/01/24 10:00 04/02/24 10:44 400 MLS/HR Sodium Chloride 10 ml Q8HR IV 04/01/24 06:00 04/02/24 12:52 10 ML Ondansetron HCl 4 mg Q4HP PRN IV 04/01/24 04:45 04/01/24 09:51 4 MG Morphine Sulfate 2 mg Q4HPRN PRN IV 04/01/24 04:45 04/02/24 17:24 2 MG Nitroglycerin 0.4 mg Q5MINP PRN SL 04/01/24 04:45 Morphine Sulfate 2 mg Q30M PRN IV 04/01/24 04:45 Pantoprazole Sodium 40 mg DAILY IV 04/02/24 10:00 04/02/24 10:43 40 MG Piperacillin Sod/ Tazobactam Sod 100 ml @ 25 mls/hr Q6HR IV 04/01/24 12:00 UNV Piperacillin Sod/ Tazobactam Sod 100 ml @ 25 mls/hr Q8H IV 04/01/24 18:00 04/02/24 17:14 25 MLS/HR Diphenhydramine HCl 25 mg Q6HP PRN IV 04/01/24 17:00 Enoxaparin Sodium 40 mg DAILY SC 04/02/24 10:00 Potassium Chloride/Sodium Chloride 1,000 ml @ 100 mls/hr Q10H IV 04/02/24 12:00 04/02/24 12:52 100 MLS/HR Vancomycin HCl 200 ml @ 200 mls/hr Q10H IV 04/03/24 01:00 Oxycodone/ Acetaminophen 1 tab Q6HP PRN PO 04/02/24 16:30 Acetaminophen 650 mg Q8HPRN PRN PO 04/02/24 16:45 04/02/24 16:53 650 MG objective Gen.: Patient lying in bed in no apparent distress. On supplemental oxygen. Head: Normocephalic, atraumatic. Eyes: EOMI/PERRLA. Ears: Normal hearing. Normal anatomy. Neck/trachea: Trachea midline, supple. Nose: Normal external anatomy. Mouth: Moist mucous membranes. Chest: Decreased air entry bilaterally. No wheezing or rhonchi. Cardiovascular: Positive S1, positive S2. Regular rate and rhythm. Abdomen: Positive bowel sounds in all 4 quadrants. Soft, non-tender, non- distended. : Deferred. Rectal: Deferred. Skin: Warm, dry. Intact. Extremities: 2+ radial pulses bilaterally. No lower extremity edema. Neuro: Awake, alert, oriented x3. No gross motor or sensory deficits. Cranial nerves II through XII intact. Gait not assessed. laboratory and microbiology Laboratory Tests 04/02/24 05:02 Test 04/02/24 05:02 Range/Units Serum Glucose 86 74-106 mg/dL Assessment/Plan Impression: Dyspnea Diarrhea S/p section Abdominal abscess Hypokalemia Events: On supplemental O2 at 2 LPM NC Taper O2 as tolerated Continue antibiotics IR eval in the AM for drainage. Surgery recs appreciated. Labs and imaging reviewed. Rest of plan as noted below. Plan: Supplemental oxygen Titrate to keep O2 sats above 92%. Continue antibiotics - Zosyn. Incentive spirometry Pain control Avoid oversedation Surgery plans for drainage of abscess. Monitor renal function. Monitor electrolytes. Supplement as necessary. Monitor ins and outs. Potassium supplementation DVT prophylaxis. Prognosis: Poor given patient's multiple co-morbidities. Rest of plan per hospitalist and other consultants. Thank you Jovani Orona NP, for allowing me to participate in this patient's care. Further recommendations will depend on the patient's clinical course. Please do not hesitate to contact me if you have any questions or concerns. This medical document was created using an electronic medical record system with [employer] computerized dictation system. Although these documentations are being carefully reviewed, there may still be some phonetic and typographical changes. The errors are purely typographical, due to imperfection on the software program, and do not reflect any compromise in the patient's medical care. Plan discussed with: Patient, Other (VINCE Saeed) AALIYAH CARVALHO MD Apr 02, 2024 21:33
[2024-04-03] VITALS (26 sets, daily range): BP systolic 88–113; BP diastolic 51–75; PULSE 87–127; RESP 12–22; TEMP 98.3–101; O2SAT 95–100
[2024-04-03] MEDS: OXYCODONE W/ ACETAMINOPHEN 5/325MG TABLET PO PRN (00:22)
[2024-04-03] MEDS: VANCOMYCIN 1GM/250ML KIT 200 ML IV SCH (01:06)
[2024-04-03 05:11] LABS: Eosinophils # (auto) 0.1 10 ^3/uL (0-0.8); Hemoglobin 7.3 g/dL (12.2-16.2); Mean Corpuscular Volume 84.6 fL (80.0-100.0)
[2024-04-03 05:15] LABS: Basophils # (auto) 0 10 ^3/uL (0-0.2); Basophils % (auto) 0.2 % (0.0-2.0); Eosinophils % (auto) 0.3 % (0.0-7.0); Hematocrit 22.4 % (36.0-46.0); Lymphocytes # (auto) 2.7 10 ^3/uL (0.4-5.4); Lymphocytes % (auto) 12.2 % (10.0-50.0); Mean Corpuscular Hemoglobin 27.7 pg (28.0-32.0); Mean Corpuscular Hgb Conc. 32.7 g/dL (32.0-36.0); Monocytes # (auto) 1.5 10 ^3/uL (0-1.3); Monocytes % (auto) 6.7 % (0.0-12.0); Neutrophils % (auto) 80.6 % (37.0-80.0); Platelet Count (auto) 480 10^3/uL (140-450); Red Blood Cells 2.65 10^6/uL (4.0-5.20); White Blood Cell 22.3 10^3/uL (4.4-10.8)
--- NOTE | 2024-04-03 05:24 | DVHPN2 ---
Subjective Progress Notes Subjective NO changes, Moderate abdominal pain Objective PHYSICAL EXAM Physical Exam: Alert, NAD Abd: Tenderness and erythema at C/S incision Ext C/D/I Vital Signs and I&O Vital Signs Date Time Temp Pulse Resp B/P (MAP) Pulse Ox O2 Delivery O2 Flow Rate FiO2 04/03/24 04:52 100 19 95/59 04/03/24 04:30 100 04/03/24 04:00 99.4 99.4 04/02/24 20:00 Nasal Cannula* 1 24 Intake and Output 04/03/24 07:00 Intake Total 3150 ml Output Total 750 ml Balance 2400 ml Intake Oral 500 ml IV Total 2650 ml Output Urine Total 750 ml Stool Total 0 ml # Voids 1 Lab results Laboratory Tests Test 04/01/24 00:50 04/01/24 03:15 04/01/24 05:02 04/01/24 05:28 Range/Units White Blood Count 23.7 H 22.0 H 4.4-10.8 10^3/uL Red Blood Count 3.71 L 3.55 L 4.0-5.20 10^6/uL Hemoglobin 10.3 L 10.0 L 12.2-16.2 g/dL Hematocrit 30.9 L 29.8 L 36.0-46.0 % Mean Corpuscular Volume 83.4 84.0 80.0-100.0 fL Mean Corpuscular Hemoglobin 27.9 L 28.3 28.0-32.0 pg Mean Corpuscular Hemoglobin Concent 33.5 33.7 32.0-36.0 g/dL Red Cell Distribution Width 14.9 H 15.2 H 11.8-14.3 % Platelet Count 697 H 610 H 140-450 10^3/uL Mean Platelet Volume 6.0 L 6.0 L 6.9-10.8 fL Neutrophils (%) (Auto) 87.8 H 83.5 H 37.0-80.0 % Lymphocytes (%) (Auto) 5.9 L 10.7 10.0-50.0 % Monocytes (%) (Auto) 6.2 5.4 0.0-12.0 % Eosinophils (%) (Auto) 0.0 0.1 0.0-7.0 % Basophils (%) (Auto) 0.1 0.3 0.0-2.0 % Neutrophils # (Auto) 20.8 H 18.4 H 1.6-8.6 10 ^3/uL Lymphocytes # (Auto) 1.4 2.4 0.4-5.4 10 ^3/uL Monocytes # (Auto) 1.5 H 1.2 0-1.3 10 ^3/uL Eosinophils # (Auto) 0 0 0-0.8 10 ^3/uL Basophils # (Auto) 0 0.1 0-0.2 10 ^3/uL Nucleated Red Blood Cells 0.0 0.2 % Sodium Level 144 144 136-145 mmol/L Potassium Level 2.6 L 3.1 L 3.5-5.1 mmol/L Chloride Level 109 H 112 H 98-107 mmol/L Carbon Dioxide Level 23 19 L 20-31 mmol/L Anion Gap 12 13 5-15 Blood Urea Nitrogen 18 16 9-23 mg/dL Creatinine 0.98 0.82 0.550-1.02 mg/dL Glomerular Filtration Rate Calc 80 99 >90 mL/min BUN/Creatinine Ratio 18.4 19.5 10.0-20.0 Serum Glucose 108 H 102 74-106 mg/dL Calcium Level 9.2 8.6 L 8.7-10.4 mg/dL Total Bilirubin 0.4 0.3 0.2-1.0 mg/dL Aspartate Amino Transferase (AST) 14 12 L 13-40 U/L Alanine Aminotransferase (ALT) 12 9 7-40 U/L Alkaline Phosphatase 154 H 137 H 46-116 U/L Total Protein 7.2 6.6 5.7-8.2 g/dL Albumin 3.8 3.4 3.2-4.8 g/dL Lactic Acid Level 1.3 0.4-2.0 mmol/L Urine Color Yellow Yellow Urine Clarity Clear Clear Urine pH 6.5 5.0-9.0 Urine Specific [place] > 1.050 H 1.001-1.035 Urine Protein 1+ H Negative Urine Ketones Negative Negative Urine Blood 2+ H Negative /uL Urine Nitrite Negative Negative Urine Bilirubin Negative Negative Urine Urobilinogen Normal Negative mg/dL Urine Leukocyte Esterase 2+ Negative /uL Urine RBC 17 0 - 4 /hpf Urine WBC 31 0 - 5 /hpf Urine Squamous Epithelial Cells Few <5 /hpf Urine Bacteria Few H None Seen /hpf Urine Glucose Normal Normal mg/dL Urine Opiates Screen Neg NEGATIVE Urine Fentanyl Screen Neg NEGATIVE Urine Barbiturates Screen Neg NEGATIVE Urine Phencyclidine Screen Neg NEGATIVE Urine Amphetamines Screen Neg NEGATIVE Urine Benzodiazepines Screen Neg NEGATIVE Urine Cocaine Screen Neg NEGATIVE Urine Cannabinoids Screen Neg NEGATIVE Test 04/01/24 09:36 04/02/24 05:02 04/02/24 14:00 04/02/24 19:58 Range/Units Prothrombin Time 13.6 H 13.4 H 9.3-11.8 sec Prothrombin Time INR 1.31 H 1.29 H 0.9-1.15 Activated Partial Thromboplast Time 37.3 H 35.2 H 24.5-34.5 SEC Lactic Acid Level 1.0 0.4-2.0 mmol/L White Blood Count 16.3 #H 4.4-10.8 10^3/uL Red Blood Count 3.30 L 4.0-5.20 10^6/uL Hemoglobin 9.1 L 12.2-16.2 g/dL Hematocrit 27.7 L 36.0-46.0 % Mean Corpuscular Volume 83.8 80.0-100.0 fL Mean Corpuscular Hemoglobin 27.4 L 28.0-32.0 pg Mean Corpuscular Hemoglobin Concent 32.7 32.0-36.0 g/dL Red Cell Distribution Width 14.6 H 11.8-14.3 % Platelet Count 564 H 140-450 10^3/uL Mean Platelet Volume 6.0 L 6.9-10.8 fL Neutrophils (%) (Auto) 80.3 H 37.0-80.0 % Lymphocytes (%) (Auto) 13.9 10.0-50.0 % Monocytes (%) (Auto) 5.2 0.0-12.0 % Eosinophils (%) (Auto) 0.2 0.0-7.0 % Basophils (%) (Auto) 0.4 0.0-2.0 % Neutrophils # (Auto) 13.1 H 1.6-8.6 10 ^3/uL Lymphocytes # (Auto) 2.3 0.4-5.4 10 ^3/uL Monocytes # (Auto) 0.8 0-1.3 10 ^3/uL Eosinophils # (Auto) 0 0-0.8 10 ^3/uL Basophils # (Auto) 0.1 0-0.2 10 ^3/uL Nucleated Red Blood Cells 0.1 % Sodium Level 140 136-145 mmol/L Potassium Level 2.8 L 3.5-5.1 mmol/L Chloride Level 109 H 98-107 mmol/L Carbon Dioxide Level 21 20-31 mmol/L Anion Gap 10 5-15 Blood Urea Nitrogen 8 L 9-23 mg/dL Creatinine 0.76 0.550-1.02 mg/dL Glomerular Filtration Rate Calc 108 >90 mL/min BUN/Creatinine Ratio 10.5 10.0-20.0 Serum Glucose 86 74-106 mg/dL Calcium Level 8.3 L 8.7-10.4 mg/dL Magnesium Level 2.0 1.6-2.6 mg/dL Total Bilirubin 0.4 0.2-1.0 mg/dL Aspartate Amino Transferase (AST) 10 L 13-40 U/L Alanine Aminotransferase (ALT) 10 7-40 U/L Alkaline Phosphatase 123 H 46-116 U/L Total Protein 5.7 5.7-8.2 g/dL Albumin 2.8 L 3.2-4.8 g/dL Vancomycin Level Trough 7.3 5-10 ug/mL Test 04/03/24 04:59 Range/Units White Blood Count 22.3 #H 4.4-10.8 10^3/uL Red Blood Count 2.65 L 4.0-5.20 10^6/uL Hemoglobin 7.3 #L 12.2-16.2 g/dL Hematocrit 22.4 #L 36.0-46.0 % Mean Corpuscular Volume 84.6 80.0-100.0 fL Mean Corpuscular Hemoglobin 27.7 L 28.0-32.0 pg Mean Corpuscular Hemoglobin Concent 32.7 32.0-36.0 g/dL Red Cell Distribution Width 15.0 H 11.8-14.3 % Platelet Count 480 H 140-450 10^3/uL Mean Platelet Volume 5.8 L 6.9-10.8 fL Neutrophils (%) (Auto) 80.6 H 37.0-80.0 % Lymphocytes (%) (Auto) 12.2 10.0-50.0 % Monocytes (%) (Auto) 6.7 0.0-12.0 % Eosinophils (%) (Auto) 0.3 0.0-7.0 % Basophils (%) (Auto) 0.2 0.0-2.0 % Neutrophils # (Auto) 18.0 H 1.6-8.6 10 ^3/uL Lymphocytes # (Auto) 2.7 0.4-5.4 10 ^3/uL Monocytes # (Auto) 1.5 H 0-1.3 10 ^3/uL Eosinophils # (Auto) 0.1 0-0.8 10 ^3/uL Basophils # (Auto) 0 0-0.2 10 ^3/uL Nucleated Red Blood Cells 0.0 % Sodium Level Pending Potassium Level Pending Chloride Level Pending Carbon Dioxide Level Pending Anion Gap Pending Blood Urea Nitrogen Pending Creatinine Pending Glomerular Filtration Rate Calc Pending BUN/Creatinine Ratio Pending Serum Glucose Pending Calcium Level Pending Assessment and Plan ASSESSMENT AND PLAN Assessment and Plan 1. s/p C/Section w/ post op Pelvic and Abd wall Abscesses 2. Gram pos (in chains) Bacteremia 3. Precipitous drop in H/H 4. HypoKalemia Plan De catheter placed for perioperative indications IR procedure today for drainage of abscess Continue Pain control and IV antibiotics Consider IV Iron infusion for anemia Replace K+ My orders: Orders - BETHANIE LOPEZ DO * Radiologist Consult (04/01/24 09:20) * Surgical Consult (04/01/24 ) Npo After Midnight (04/03/24 Breakfast) Sod Chl 0.9%/ Kcl 20meq (04/02/24 12:00) Urine Bacterial Culture (04/02/24 15:10) Insert/Manage Urinary Catheter QSHIFT (04/02/24 15:13) Plan discussed with: Patient Date of Service: Apr 03, 2024 Billing Provider: BETHANIE LOPEZ DO Common Visit Codes: [id number] INP/OBS CARE(MOD) BETHANIE LOPZE DO Apr 03, 2024 05:24
[2024-04-03 05:39] LABS: Chloride 109 mmol/L (98-107); Potassium 3.5 mmol/L (3.5-5.1); Sodium 139 mmol/L (136-145)
[2024-04-03 05:40] LABS: Anion Gap 7 (5-15); Carbon Dioxide 23 mmol/L (20-31)
[2024-04-03 05:41] LABS: Calcium 7.9 mg/dL (8.7-10.4)
[2024-04-03 05:45] LABS: Glucose 96 mg/dL (74-106)
[2024-04-03 05:53] LABS: BUN/Creatinine Ratio 8.3 (10.0-20.0); Blood Urea Nitrogen < 5 mg/dL (9-23)
[2024-04-03] MEDS: LIDOCAINE 2%HCL (LOCAL ANESTH.) INJ 10ml MDV ONE (08:23)
[2024-04-03] MEDS: MIDAZOLAM HCL 2MG/2ML 2ml VIAL (1mg/ml) IV ONE (08:30)
[2024-04-03] MEDS: fentaNYL CITRATE 100 MCG/2 ML VL IV ONE (08:30)
--- NOTE | 2024-04-03 10:35 | DVH ---
CT ABDOMEN WITHOUT CONTRAST, HISTORY: ABD ABCESS COMPARISON: 04/03/24 PROCEDURE: Informed consent was obtained. The patient was placed supine on the CT scanner. IV sedatio n was administered. The abdominal and pelvic abscess was localized under CT scan and the overlying sk in prepped with chlorhexidine which was allowed to dry and draped in the usual sterile fashion and in filtrated with Xylocaine. Time out was performed. With CT guidance, a 19-gauge centesis needle cathet er was advanced via trans-peritoneal approach into the pelvic abscess collection. Following aspiratio n of a small amount of fluid, a 0.035 wire was advanced into the fluid collection. Placement was conf irmed with CT scan. After serial dilatation, a 8.5 Tristanian Henderson Meuller pigtail drain was placed int o the collection. Purulent fluid was aspirated. With CT guidance, a 19-gauge centesis needle catheter was advanced via trans-peritoneal approach into the abdominal abscess collection. Following aspiration of a small amount of fluid, a 0.035 wire was advanced into the fluid collection. Placement was confirmed with CT scan. After serial dilatation, a 8 Tristanian Flexima pigtail drain was placed into the collection. Purulent fluid was aspirated. Approxim ately 350 cc of thick purulent liquid was aspirated, with specimen sent for appropriate laboratory/c ytology/laboratory and cytology evaluation. The drains were sutured at the skin surface and connected to suction drainage. No immediate complication was noted. Post procedure CT imaging through the drai n site was obtained. DLP =3341 mGy-cm. SEDATION: Dr. Veronica Moe was personally responsible for the administration of moderate sedation during the procedure performed, including the use of an independent trained observer who had no other duties during the procedure. The drugs utilized were IV fentanyl and versed (see nursing log for details). The total time of supervision by the attending physician was approximately 45 minutes. FINDINGS: Limited CT scan of through the abdomen and pelvis demonstrates a moderate to large sized fl uid collection in the abdomen and pelvis. Collection appears complex. Post procedure scan shows pigta il drain within the collection , which is decreased in size. No immediate complication was identified . IMPRESSION: Two (2) CT guided abdominal and pelvic drain placement. 8.5 Fr drain placed into the pelvic abscess. 8 Fr drain placed into the abdominal abscess. A total of 350 mL of thick purulent fluid was aspirated . PLAN: Routine tube care.
--- NOTE | 2024-04-03 11:07 | DVHPN2 ---
Subjective The patient seen and examined at bedside. The patient feel little bit better today. Reviewed: Care Plan, H&P Changes from previous H/P or p: No Changes Eyes: No Pain, No Vision change, No Conjunctivae inflammation, No Eyelid inflammation, No Other, No Redness ENT: No Ear pain, No Ear discharge, No Nose pain, No Nose discharge, No Nose congestion, No Mouth pain, No Mouth swelling, No Throat pain, No Throat swelling, No Other Cardiovascular: No Chest Pain, No Palpitations, No Orthopnea, No Paroxysmal Noc. Dyspnea, No Edema, No Lt Headedness, No Other Respiratory: No Cough, No Dry, No Shortness of breath, No SOB with excertion, No Wheezing, No Hemoptysis, No Pleuritic Pain, No Sputum, No Other Gastrointestinal: Nausea, Vomiting, Abdominal Pain, Diarrhea; No Constipation, No Melena, No Hematochezia, No Other Genitourinary: No Dysuria, No Frequency, No Incontinence, No Hematuria, No Retention, No Other Musculoskeletal: No other, No neck pain, No shoulder pain, No arm pain, No back pain, No hand pain, No leg pain, No foot pain Skin: No Rash, No Lesions, No Jaundice, No Bruising, No Other Objective Vitals Vital Signs Date Time Temp Pulse Resp B/P (MAP) Pulse Ox O2 Delivery O2 Flow Rate FiO2 04/03/24 10:00 107 04/03/24 08:00 18 97 Nasal Cannula* 1 24 04/03/24 08:00 100.8 109/64 (79) 100.8 Intake/Output Intake and Output 04/03/24 07:00 Intake Total 4100 ml Output Total 2250 ml Balance 1850 ml Intake Oral 1100 ml IV Total 3000 ml Output Urine Total 2250 ml Stool Total 0 ml # Voids 2 General Appearance: Alert, Oriented X3 Cardiovascular: Regular rate, Normal S1, Normal S2 Abdomen: Normal bowel sounds Medications Current Medications Medications Dose Ordered Sig/Johny Route Start Time Stop Time Status Last Admin Dose Admin Vancomycin HCl 0 ml @ 0 mls/hr UD IV 04/01/24 04:45 Levetiracetam 100 ml @ 400 mls/hr BID IV 04/01/24 10:00 04/03/24 10:30 400 MLS/HR Sodium Chloride 10 ml Q8HR IV 04/01/24 06:00 04/03/24 06:07 10 ML Ondansetron HCl 4 mg Q4HP PRN IV 04/01/24 04:45 04/01/24 09:51 4 MG Morphine Sulfate 2 mg Q4HPRN PRN IV 04/01/24 04:45 04/03/24 04:22 2 MG Nitroglycerin 0.4 mg Q5MINP PRN SL 04/01/24 04:45 Morphine Sulfate 2 mg Q30M PRN IV 04/01/24 04:45 Pantoprazole Sodium 40 mg DAILY IV 04/02/24 10:00 04/03/24 10:29 40 MG Piperacillin Sod/ Tazobactam Sod 100 ml @ 25 mls/hr Q6HR IV 04/01/24 12:00 UNV Piperacillin Sod/ Tazobactam Sod 100 ml @ 25 mls/hr Q8H IV 04/01/24 18:00 04/03/24 10:51 25 MLS/HR Diphenhydramine HCl 25 mg Q6HP PRN IV 04/01/24 17:00 Enoxaparin Sodium 40 mg DAILY SC 04/02/24 10:00 04/03/24 10:30 40 MG Potassium Chloride/Sodium Chloride 1,000 ml @ 100 mls/hr Q10H IV 04/02/24 12:00 04/03/24 00:22 100 MLS/HR Vancomycin HCl 200 ml @ 200 mls/hr Q10H IV 04/03/24 01:00 04/03/24 01:06 200 MLS/HR Oxycodone/ Acetaminophen 1 tab Q6HP PRN PO 04/02/24 16:30 04/03/24 10:22 1 TAB Acetaminophen 650 mg Q8HPRN PRN PO 04/02/24 16:45 04/03/24 06:32 650 MG Laboratory Results Laboratory Tests 04/03/24 04:59 Chemistry Test 04/03/24 04:59 Calcium Level 7.9 mg/dL (8.7-10.4) L Coagulation Test 04/02/24 19:58 Prothrombin Time 13.4 sec (9.3-11.8) H Prothrombin Time INR 1.29 (0.9-1.15) H Activated Partial Thromboplast Time 35.2 SEC (24.5-34.5) H Urinalysis Test 04/01/24 05:28 Urine Color Yellow (Yellow) Urine Clarity Clear (Clear) Urine pH 6.5 (5.0-9.0) Urine Specific [place] > 1.050 (1.001-1.035) Urine Protein 1+ (Negative) H Urine Ketones Negative (Negative) Urine Blood 2+ /uL (Negative) H Urine Nitrite Negative (Negative) Urine Bilirubin Negative (Negative) Urine Urobilinogen Normal mg/dL (Negative) Urine Leukocyte Esterase 2+ /uL (Negative) Urine RBC 17 /hpf (0 - 4) Urine WBC 31 /hpf (0 - 5) Urine Squamous Epithelial Cells Few /hpf (<5) Urine Bacteria Few /hpf (None Seen) H Urine Glucose Normal mg/dL (Normal) Microbiology Microbiology Date/Time Source Procedure Growth Status 04/02/24 15:00 Urine - [place] Urine Culture - Preliminary Resulted 04/01/24 20:35 Nose MRSA Screen - Final Complete 04/01/24 03:15 Blood Blood Culture - Preliminary Resulted Labs and/or images reviewed: Labs reviewed by me Assessment/Plan Assessment/Plan # sepsis due to pelvic wall abscess and anterior wall abscess of the uterus IV fluids IV antibiotics, Vanco and Zosyn Blood culture Lactic acid levels # pelvic wall abscess and anterior wall episode of the uterus -IV vancomycin plus Zosyn OBGYN consult Status post do drainage to the pelvic abscess. Patient now feel much better. # intractable nausea/vomiting in the setting of sepsis -IV ondansetron p.r.n. -continue clear liquid, advance as tolerated # intractable diarrhea in the setting of sepsis, improving -IV fluids -continue clear liquid diet, advance as tolerated # epilepsy Continue home medication # history of rheumatoid arthritis Patient does not take any active medication We will monitor # recent history of OBGYN consult Lines Midline DVT prophylaxis -Low dose Lovenox 40mg SC daily Anticipate to transfer the patient to telemetry. Plan discussed with: Patient Date of Service: Apr 03, 2024 Billing Provider: CECILIO MOISE MD Common Visit Codes: [id number] INP/OBS CARE(HIGH) CECILIO MOISE MD Apr 03, 2024 11:07
--- NOTE | 2024-04-03 22:00 | DVHPN2 ---
Chief Complaints Patient reports: Other (Called by RN because patient has pus drainage from c/section wound) Nursing reports: Other (Pus drainage) Objective Vitals Vital Signs Date Time Temp Pulse Resp B/P (MAP) Pulse Ox O2 Delivery O2 Flow Rate FiO2 04/03/24 20:05 99.6 04/03/24 19:15 86 19 124/88 04/03/24 17:00 100 04/03/24 08:00 Nasal Cannula* 1 24 Medications Current Medications Medications (Trade) Dose Ordered Sig/Johny Route PRN Reason Start Time Stop Time Status Last Admin Vancomycin HCl 200 ml @ 200 mls/hr Q10H IV 04/03/24 01:00 04/03/24 21:31 General: Normal Abdominal: Other (Mild erythema around incision. Tissue around incision is soft, mildly tender. No active drainage noted. Wound vac in place.) Others Bilateral labial edema noted, more prominent on left labia than the right Studies Laboratory Tests 04/03/24 04:59 Test 04/03/24 04:59 Range/Units Serum Glucose 96 74-106 mg/dL Ass/Plan Assessment C/section wound infection 18 day post OP Plan Wound evaluation reviewed with Dr. Matthews Ordered wound consult Continue antibiotics as ordered ID consult Sand bag to perineum will evaluate tomorrow MARGA VELARDE CNM Apr 03, 2024 22:00
--- NOTE | 2024-04-03 22:19 | DVHPN2 ---
Progress Note - Dictate Date Seen: Apr 03, 2024 Medical Necessity Reason Pt with a Central, PICC or Fol: Yes The following are medically ne: Chavarria Catheter Reason for chavarria catheter: Strict I&O Subjective Patient seen and examined at bedside. Remains on supplemental oxygen Overnight events reviewed. vital signs Vital Sign Date Time Temp Pulse Resp B/P (MAP) Pulse Ox O2 Delivery O2 Flow Rate FiO2 04/03/24 21:00 99.0 94 18 99/55 (70) 96 99.0 04/03/24 08:00 Nasal Cannula* 1 24 Total Intake and Output 04/02/24 04/02/24 04/03/24 15:00 23:00 07:00 Intake Total 500 ml 1900 ml 1700 ml Output Total 750 ml 1500 ml Balance 500 ml 1150 ml 200 ml medications Current Medications Medications Dose Ordered Sig/Johny Route Start Time Stop Time Status Last Admin Dose Admin Vancomycin HCl 0 ml @ 0 mls/hr UD IV 04/01/24 04:45 Levetiracetam 100 ml @ 400 mls/hr BID IV 04/01/24 10:00 04/03/24 21:31 400 MLS/HR Sodium Chloride 10 ml Q8HR IV 04/01/24 06:00 04/03/24 21:31 10 ML Ondansetron HCl 4 mg Q4HP PRN IV 04/01/24 04:45 04/01/24 09:51 4 MG Morphine Sulfate 2 mg Q4HPRN PRN IV 04/01/24 04:45 04/03/24 18:45 2 MG Nitroglycerin 0.4 mg Q5MINP PRN SL 04/01/24 04:45 Morphine Sulfate 2 mg Q30M PRN IV 04/01/24 04:45 Pantoprazole Sodium 40 mg DAILY IV 04/02/24 10:00 04/03/24 10:29 40 MG Piperacillin Sod/ Tazobactam Sod 100 ml @ 25 mls/hr Q6HR IV 04/01/24 12:00 UNV Piperacillin Sod/ Tazobactam Sod 100 ml @ 25 mls/hr Q8H IV 04/01/24 18:00 04/03/24 18:13 25 MLS/HR Diphenhydramine HCl 25 mg Q6HP PRN IV 04/01/24 17:00 Enoxaparin Sodium 40 mg DAILY SC 04/02/24 10:00 04/03/24 10:30 40 MG Potassium Chloride/Sodium Chloride 1,000 ml @ 100 mls/hr Q10H IV 04/02/24 12:00 04/03/24 13:11 100 MLS/HR Vancomycin HCl 200 ml @ 200 mls/hr Q10H IV 04/03/24 01:00 04/03/24 21:31 200 MLS/HR Oxycodone/ Acetaminophen 1 tab Q6HP PRN PO 04/02/24 16:30 04/03/24 16:19 1 TAB Acetaminophen 650 mg Q8HPRN PRN PO 04/02/24 16:45 04/03/24 19:05 650 MG objective Gen.: Patient lying in bed in no apparent distress. On supplemental oxygen. Head: Normocephalic, atraumatic. Eyes: EOMI/PERRLA. Ears: Normal hearing. Normal anatomy. Neck/trachea: Trachea midline, supple. Nose: Normal external anatomy. Mouth: Moist mucous membranes. Chest: Decreased air entry bilaterally. No wheezing or rhonchi. Cardiovascular: Positive S1, positive S2. Regular rate and rhythm. Abdomen: Positive bowel sounds in all 4 quadrants. Soft, non-tender, non- distended. : Deferred. Rectal: Deferred. Skin: Warm, dry. Intact. Extremities: 2+ radial pulses bilaterally. No lower extremity edema. Neuro: Awake, alert, oriented x3. No gross motor or sensory deficits. Cranial nerves II through XII intact. Gait not assessed. laboratory and microbiology Laboratory Tests 04/03/24 04:59 Test 04/03/24 04:59 Range/Units Serum Glucose 96 74-106 mg/dL Assessment/Plan Impression: Dyspnea Diarrhea S/p section Abdominal abscess Hypokalemia Events: On supplemental O2 at 1 LPM NC Taper O2 as tolerated Concern due to hemoglobin trending down Obtain STAT CBC, CMP, mag and phos. S/p placement of abdominal and pelvic drains by IR. [employer] recs appreciated. Monitor drain output - purulent fluid aspirated. Continue antibiotics Labs and imaging reviewed. Rest of plan as noted below. Plan: Supplemental oxygen Titrate to keep O2 sats above 92%. Continue antibiotics - Zosyn. Incentive spirometry Pain control Avoid oversedation S/p placement of abdominal and pelvic drains by IR for drainage of abscess. Monitor renal function. Monitor electrolytes. Supplement as necessary. Monitor ins and outs. Potassium supplementation DVT prophylaxis. Prognosis: Poor given patient's multiple co-morbidities. Condition: Critical Rest of plan per hospitalist and other consultants. A total of 35 minutes of critical care time was spent reviewing the patient record, examining the patient, making a diagnostic and therapeutic plan, discussing this plan with the medical personnel, following up on diagnostic studies and following the patient for clinical stability excluding any and all procedures. At least 50% of this time was spent in direct, [id number] contact. Thank you Jovani Orona NP, for allowing me to participate in this patient's care. Further recommendations will depend on the patient's clinical course. Please do not hesitate to contact me if you have any questions or concerns. This medical document was created using an electronic medical record system with [employer] dictation system. Although these documentations are being carefully reviewed, there may still be some phonetic and typographical changes. The errors are purely typographical, due to imperfection on the software program, and do not reflect any compromise in the patient's medical care. Plan discussed with: Patient, Other (RN) Critical Care Time(min): 35 AALIYAH CARVALHO MD Apr 03, 2024 22:19
[2024-04-03 23:31] LABS: Basophils # (auto) 0 10 ^3/uL (0-0.2); Basophils % (auto) 0.2 % (0.0-2.0); Eosinophils # (auto) 0.1 10 ^3/uL (0-0.8); Eosinophils % (auto) 0.5 % (0.0-7.0); Hematocrit 21.7 % (36.0-46.0); Lymphocytes # (auto) 2.7 10 ^3/uL (0.4-5.4); Lymphocytes % (auto) 15.2 % (10.0-50.0); Mean Corpuscular Hemoglobin 27.1 pg (28.0-32.0); Mean Corpuscular Hgb Conc. 31.2 g/dL (32.0-36.0); Mean Corpuscular Volume 86.7 fL (80.0-100.0); Monocytes % (auto) 5.4 % (0.0-12.0); Neutrophils % (auto) 78.7 % (37.0-80.0); Nucleated Red Blood Cells % 0.1 %; Platelet Count (auto) 486 10^3/uL (140-450); Red Blood Cells 2.51 10^6/uL (4.0-5.20); Red Cell Distribution Width 15.7 % (11.8-14.3); White Blood Cell 17.8 10^3/uL (4.4-10.8)
[2024-04-03 23:39] LABS: Hemoglobin 6.8 g/dL (12.2-16.2)
[2024-04-03 23:41] LABS: Alanine Aminotransferase 10 U/L (7-40); Albumin 2.6 g/dL (3.2-4.8); Alkaline Phosphatase 107 U/L (46-116); Anion Gap 6 (5-15); Aspartate Aminotransferase 16 U/L (13-40); Calcium 7.8 mg/dL (8.7-10.4); Carbon Dioxide 22 mmol/L (20-31); Chloride 110 mmol/L (98-107); Glucose 88 mg/dL (74-106); Potassium 3.6 mmol/L (3.5-5.1); Sodium 138 mmol/L (136-145)
[2024-04-03 23:42] LABS: BUN/Creatinine Ratio 9.3 (10.0-20.0); Bilirubin, Total 0.2 mg/dL (0.2-1.0); Blood Urea Nitrogen < 5 mg/dL (9-23); Phosphorus 2.8 mg/dL (2.4-5.1); Total Protein 5.2 g/dL (5.7-8.2)
[2024-04-04] VITALS (12 sets, daily range): BP systolic 99–130; BP diastolic 60–99; PULSE 76–99; RESP 16–19; TEMP 98.1–99.8; O2SAT 92–100
[2024-04-04] MEDS ORDERED: SODIUM CHLOR 0.9% PF (SALINE LOCK) 10ML VIAL/SYR IV SCH
[2024-04-04] MEDS: SODIUM CHLORIDE 0.9% 1,000 ML IV SCH (02:48)
[2024-04-04 07:01] LABS: Chloride 108 mmol/L (98-107); Potassium 3.7 mmol/L (3.5-5.1); Sodium 140 mmol/L (136-145)
[2024-04-04 07:03] LABS: Anion Gap 8 (5-15); Calcium 7.9 mg/dL (8.7-10.4); Carbon Dioxide 24 mmol/L (20-31)
[2024-04-04 07:08] LABS: Blood Urea Nitrogen 6 mg/dL (9-23); Glucose 89 mg/dL (74-106)
[2024-04-04] MEDS ORDERED: LEVE750T15 PO (11:07)
--- NOTE | 2024-04-04 11:10 | DVHPN2 ---
Subjective The patient seen and examined at bedside. The patient complains of left major labia pain and swollen. Reviewed: Care Plan, H&P Changes from previous H/P or p: No Changes Eyes: No Pain, No Vision change, No Conjunctivae inflammation, No Eyelid inflammation, No Other, No Redness ENT: No Ear pain, No Ear discharge, No Nose pain, No Nose discharge, No Nose congestion, No Mouth pain, No Mouth swelling, No Throat pain, No Throat swelling, No Other Cardiovascular: No Chest Pain, No Palpitations, No Orthopnea, No Paroxysmal Noc. Dyspnea, No Edema, No Lt Headedness, No Other Respiratory: No Cough, No Dry, No Shortness of breath, No SOB with excertion, No Wheezing, No Hemoptysis, No Pleuritic Pain, No Sputum, No Other Gastrointestinal: Nausea, Vomiting, Abdominal Pain, Diarrhea; No Constipation, No Melena, No Hematochezia, No Other Genitourinary: No Dysuria, No Frequency, No Incontinence, No Hematuria, No Retention, No Other Musculoskeletal: No other, No neck pain, No shoulder pain, No arm pain, No back pain, No hand pain, No leg pain, No foot pain Skin: No Rash, No Lesions, No Jaundice, No Bruising, No Other Objective Vitals Vital Signs Date Time Temp Pulse Resp B/P (MAP) Pulse Ox O2 Delivery O2 Flow Rate FiO2 04/04/24 08:49 98.6 89 17 116/79 (91) 100 98.6 04/04/24 07:39 Nasal Cannula* 1 24 Intake/Output Intake and Output 04/04/24 07:00 Intake Total 3260 ml Output Total 200 ml Balance 3060 ml Intake Oral 620 ml IV Total 2640 ml Output Urine Total 200 ml # Voids 4 # Bowel Movements 3 General Appearance: Alert, Oriented X3 Cardiovascular: Regular rate, Normal S1, Normal S2 Abdomen: Normal bowel sounds Medications Current Medications Medications Dose Ordered Sig/Johny Route Start Time Stop Time Status Last Admin Dose Admin Vancomycin HCl 0 ml @ 0 mls/hr UD IV 04/01/24 04:45 Levetiracetam 100 ml @ 400 mls/hr BID IV 04/01/24 10:00 04/03/24 21:31 400 MLS/HR Ondansetron HCl 4 mg Q4HP PRN IV 04/01/24 04:45 04/04/24 04:37 4 MG Morphine Sulfate 2 mg Q4HPRN PRN IV 04/01/24 04:45 04/03/24 18:45 2 MG Nitroglycerin 0.4 mg Q5MINP PRN SL 04/01/24 04:45 Morphine Sulfate 2 mg Q30M PRN IV 04/01/24 04:45 Pantoprazole Sodium 40 mg DAILY IV 04/02/24 10:00 04/04/24 09:58 40 MG Piperacillin Sod/ Tazobactam Sod 100 ml @ 25 mls/hr Q6HR IV 04/01/24 12:00 UNV Piperacillin Sod/ Tazobactam Sod 100 ml @ 25 mls/hr Q8H IV 04/01/24 18:00 04/04/24 09:58 25 MLS/HR Diphenhydramine HCl 25 mg Q6HP PRN IV 04/01/24 17:00 Enoxaparin Sodium 40 mg DAILY SC 04/02/24 10:00 04/04/24 09:58 40 MG Vancomycin HCl 200 ml @ 200 mls/hr Q10H IV 04/03/24 01:00 04/04/24 07:16 200 MLS/HR Oxycodone/ Acetaminophen 1 tab Q6HP PRN PO 04/02/24 16:30 04/04/24 08:14 1 TAB Acetaminophen 650 mg Q8HPRN PRN PO 04/02/24 16:45 04/03/24 19:05 650 MG Sodium Chloride 60 ml Q8HR IV 04/04/24 00:00 Cancel Sodium Chloride 1,000 ml @ 60 mls/hr [id number] IV 04/04/24 02:30 04/04/24 02:48 60 MLS/HR Laboratory Results Laboratory Tests 04/03/24 23:10 04/04/24 06:12 Chemistry Test 04/03/24 23:10 04/04/24 06:12 Albumin 2.6 g/dL (3.2-4.8) L Calcium Level 7.8 mg/dL (8.7-10.4) L 7.9 mg/dL (8.7-10.4) L Magnesium Level 2.0 mg/dL (1.6-2.6) Phosphorus Level 2.8 mg/dL (2.4-5.1) Total Protein 5.2 g/dL (5.7-8.2) L LFT Test 04/03/24 23:10 Alanine Aminotransferase (ALT) 10 U/L (7-40) Alkaline Phosphatase 107 U/L (46-116) Aspartate Amino Transferase (AST) 16 U/L (13-40) Total Bilirubin 0.2 mg/dL (0.2-1.0) Urinalysis Test 04/01/24 05:28 Urine Color Yellow (Yellow) Urine Clarity Clear (Clear) Urine pH 6.5 (5.0-9.0) Urine Specific [place] > 1.050 (1.001-1.035) Urine Protein 1+ (Negative) H Urine Ketones Negative (Negative) Urine Blood 2+ /uL (Negative) H Urine Nitrite Negative (Negative) Urine Bilirubin Negative (Negative) Urine Urobilinogen Normal mg/dL (Negative) Urine Leukocyte Esterase 2+ /uL (Negative) Urine RBC 17 /hpf (0 - 4) Urine WBC 31 /hpf (0 - 5) Urine Squamous Epithelial Cells Few /hpf (<5) Urine Bacteria Few /hpf (None Seen) H Urine Glucose Normal mg/dL (Normal) Microbiology Microbiology Date/Time Source Procedure Growth Status 04/02/24 19:58 Blood Blood Culture - Preliminary NO GROWTH AFTER 24 HOURS OF INCUBATION. Resulted 04/02/24 15:00 Urine - [place] Urine Culture - Preliminary Resulted 04/01/24 20:35 Nose MRSA Screen - Final Complete Labs and/or images reviewed: Labs reviewed by me Assessment/Plan Assessment/Plan # sepsis due to pelvic wall abscess and anterior wall abscess of the uterus IV fluids IV antibiotics, Vanco and Zosyn Blood culture Lactic acid levels # pelvic wall abscess and anterior wall episode of the uterus -IV vancomycin plus Zosyn OBGYN consult Status post do drainage to the pelvic abscess. Patient now feel much better. # intractable nausea/vomiting in the setting of sepsis -IV ondansetron p.r.n. -continue clear liquid, advance as tolerated # intractable diarrhea in the setting of sepsis, improving -IV fluids -continue clear liquid diet, advance as tolerated # epilepsy Continue home medication # history of rheumatoid arthritis Patient does not take any active medication We will monitor # recent history of OBGYN consult #Swollen of left major labia. Will consult OB for evaluation. Lines Midline DVT prophylaxis -Low dose Lovenox 40mg SC daily Plan discussed with: Patient My Orders Orders - CECILIO MOISE MD Procedure Category Date Status Time Transfer Orders XFER 04/03/24 Transmitted 12:51 Date of Service: Apr 04, 2024 Billing Provider: CECILIO MOISE MD Common Visit Codes: [id number] INP/OBS CARE(HIGH) CECILIO MOISE MD Apr 04, 2024 11:10
[2024-04-04] MEDS: POTASSIUM CHL 20 Meq TABLET PO ONE (12:11)
[2024-04-04] MEDS: levETIRAcetam 500 MG TAB PO SCH (12:11)
--- NOTE | 2024-04-04 12:50 | ECG ---
[facility] Test Date: 2024-04-01 Test Time: 14:19:23 Pat Name: OFELIA KILPATRICK Department: ER Room: 0238T Gender: F Tubing Tester: : 1995 Requested By: CECIL CHUNG Order Number: [id number] Reading MD: Anselmo Thorne Measurements Intervals [place] Rate: 133 P: 28 OR: 136 QRS: 25 QRSD: 82 T: 28 QT: 299 QTc: 445 Interpretive Statements Sinus tachycardia Borderline low voltage, extremity leads Lead(s) III were not used for morphology analysis Electronically Signed On 04-07-2024 16:53:46 PST by Anselmo Thorne Please click the below link to view image of tracing.
--- NOTE | 2024-04-04 14:01 | DVHPN2 ---
Chief Complaints Patient reports: Other (Patient has pus drainage from c/section wound and swollen labia's that hurt) Objective Vitals Vital Signs Date Time Temp Pulse Resp B/P (MAP) Pulse Ox O2 Delivery O2 Flow Rate FiO2 04/04/24 08:49 98.6 89 17 116/79 (91) 100 98.6 04/04/24 07:39 Nasal Cannula* 1 24 Medications Current Medications Medications (Trade) Dose Ordered Sig/Johny Route PRN Reason Start Time Stop Time Status Last Admin Levetiracetam (Keppra Tablet) 750 mg BID PO 04/04/24 11:30 04/04/24 12:11 Sodium Chloride 1,000 ml @ 60 mls/hr [id number] IV 04/04/24 02:30 04/04/24 02:48 Sodium Chloride (Saline Lock Ns) 60 ml Q8HR IV 04/04/24 00:00 Cancel General: Normal Abdominal: Other (Mild erythema around incision. Tissue around incision is soft, mildly tender. Active pus drainage noted on left side. Wound vac in place on right side.) Others vulvar edema noted, more pronounced on left Studies Laboratory Tests 04/04/24 06:12 04/03/24 23:10 Test 04/04/24 06:12 Range/Units Serum Glucose 89 74-106 mg/dL Ass/Plan Assessment 28yo Repeat wound infection 19 day post OP after 3rd Anemia s/p blood transfusion (1u PRBC) Plan Wound evaluation reviewed with Dr. Matthews Continue IV antibiotics as ordered STAT CBC ordered RN to apply Sand bag to perineum ENA Dr. Bhakta will evaluate tomorrow 04/05/24 ROBINSON VILLAVICENCIO Apr 04, 2024 14:01
[2024-04-04 14:38] LABS: Basophils # (auto) 0 10 ^3/uL (0-0.2); Basophils % (auto) 0.2 % (0.0-2.0); Eosinophils # (auto) 0.1 10 ^3/uL (0-0.8); Hemoglobin 9.8 g/dL (12.2-16.2); Mean Corpuscular Hemoglobin 28.4 pg (28.0-32.0)
[2024-04-04 14:39] LABS: Eosinophils % (auto) 0.8 % (0.0-7.0); Hematocrit 29.2 % (36.0-46.0); Lymphocytes # (auto) 2.5 10 ^3/uL (0.4-5.4); Lymphocytes % (auto) 17.7 % (10.0-50.0); Mean Corpuscular Hgb Conc. 33.4 g/dL (32.0-36.0); Monocytes # (auto) 0.7 10 ^3/uL (0-1.3); Monocytes % (auto) 4.9 % (0.0-12.0); Neutrophils # (auto) 10.6 10 ^3/uL (1.6-8.6); Neutrophils % (auto) 76.4 % (37.0-80.0); Platelet Count (auto) 477 10^3/uL (140-450); Red Blood Cells 3.44 10^6/uL (4.0-5.20); Red Cell Distribution Width 15.1 % (11.8-14.3); White Blood Cell 13.9 10^3/uL (4.4-10.8)
--- NOTE | 2024-04-04 20:53 | DVHPN2 ---
Progress Note - Dictate Date Seen: Apr 04, 2024 Medical Necessity Reason Pt with a Central, PICC or Fol: No The following are medically ne: Chavarria Catheter Reason for chavarria catheter: Strict I&O Subjective Patient seen and examined at bedside. Breathing on room air. Overnight events reviewed. vital signs Vital Sign Date Time Temp Pulse Resp B/P (MAP) Pulse Ox O2 Delivery O2 Flow Rate FiO2 04/04/24 17:00 99.8 76 16 115/73 (87) 98 99.8 04/04/24 07:39 Nasal Cannula* 1 24 Total Intake and Output 04/03/24 04/03/24 04/04/24 15:00 23:00 07:00 Intake Total 1120 ml 300 ml 1840 ml Output Total 200 ml Balance 1120 ml 300 ml 1640 ml medications Current Medications Medications Dose Ordered Sig/Johny Route Start Time Stop Time Status Last Admin Dose Admin Vancomycin HCl 0 ml @ 0 mls/hr UD IV 04/01/24 04:45 Ondansetron HCl 4 mg Q4HP PRN IV 04/01/24 04:45 04/04/24 04:37 4 MG Morphine Sulfate 2 mg Q4HPRN PRN IV 04/01/24 04:45 04/03/24 18:45 2 MG Nitroglycerin 0.4 mg Q5MINP PRN SL 04/01/24 04:45 Morphine Sulfate 2 mg Q30M PRN IV 04/01/24 04:45 Pantoprazole Sodium 40 mg DAILY IV 04/02/24 10:00 04/04/24 09:58 40 MG Piperacillin Sod/ Tazobactam Sod 100 ml @ 25 mls/hr Q6HR IV 04/01/24 12:00 UNV Piperacillin Sod/ Tazobactam Sod 100 ml @ 25 mls/hr Q8H IV 04/01/24 18:00 04/04/24 18:41 25 MLS/HR Diphenhydramine HCl 25 mg Q6HP PRN IV 04/01/24 17:00 Enoxaparin Sodium 40 mg DAILY SC 04/02/24 10:00 04/04/24 09:58 40 MG Vancomycin HCl 200 ml @ 200 mls/hr Q10H IV 04/03/24 01:00 04/04/24 17:19 200 MLS/HR Oxycodone/ Acetaminophen 1 tab Q6HP PRN PO 04/02/24 16:30 04/04/24 17:19 1 TAB Acetaminophen 650 mg Q8HPRN PRN PO 04/02/24 16:45 04/03/24 19:05 650 MG Sodium Chloride 60 ml Q8HR IV 04/04/24 00:00 Cancel Sodium Chloride 1,000 ml @ 60 mls/hr [id number] IV 04/04/24 02:30 04/04/24 02:48 60 MLS/HR Levetiracetam 750 mg BID PO 04/04/24 11:30 04/04/24 12:11 750 MG objective Gen.: Patient lying in bed in no apparent distress. Breathing on room air. Head: Normocephalic, atraumatic. Eyes: EOMI/PERRLA. Ears: Normal hearing. Normal anatomy. Neck/trachea: Trachea midline, supple. Nose: Normal external anatomy. Mouth: Moist mucous membranes. Chest: Decreased air entry bilaterally. No wheezing or rhonchi. Cardiovascular: Positive S1, positive S2. Regular rate and rhythm. Abdomen: Positive bowel sounds in all 4 quadrants. Soft, non-tender, non- distended. : Deferred. Rectal: Deferred. Skin: Warm, dry. Intact. Extremities: 2+ radial pulses bilaterally. No lower extremity edema. Neuro: Awake, alert, oriented x3. No gross motor or sensory deficits. Cranial nerves II through XII intact. Gait not assessed. laboratory and microbiology Laboratory Tests 04/04/24 14:10 04/04/24 06:12 Test 04/04/24 06:12 Range/Units Serum Glucose 89 74-106 mg/dL Assessment/Plan Impression: Dyspnea Diarrhea S/p section Abdominal abscess Hypokalemia Events: Breathing on room air No respiratory distress. Hemoglobin trending up at 9.8 g/dL S/p placement of abdominal and pelvic drains by IR. 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 Monitor drain output - purulent fluid aspirated. Continue antibiotics, vancomycin IS. Wound care Pain control Avoid oversedation Labs and imaging reviewed. Rest of plan as noted below. Plan: Supplemental oxygen PRN Titrate to keep O2 sats above 92%. Continue antibiotics - Zosyn. Incentive spirometry Pain control Avoid oversedation S/p placement of abdominal and pelvic drains by IR for drainage of abscess. Monitor renal function. Monitor electrolytes. Supplement as necessary. Monitor ins and outs. Potassium supplementation DVT prophylaxis. Prognosis: Poor given patient's multiple co-morbidities. Rest of plan per hospitalist and other consultants. Thank you Jovani Orona NP, for allowing me to participate in this patient's care. Further recommendations will depend on the patient's clinical course. Please do not hesitate to contact me if you have any questions or concerns. This medical document was created using an electronic medical record system with [employer] dictation system. Although these documentations are being carefully reviewed, there may still be some phonetic and typographical changes. The errors are purely typographical, due to imperfection on the software program, and do not reflect any compromise in the patient's medical care. Plan discussed with: Patient, Other (VINCE Candelario) CC Plasma Assessment Blood Product Administration S: [id number] AALIYAH CARVALHO MD Apr 04, 2024 20:53
[2024-04-05] VITALS (9 sets, daily range): BP systolic 105–118; BP diastolic 60–77; PULSE 74–89; RESP 15–18; TEMP 97.9–98.7; O2SAT 96–98
[2024-04-05 06:09] LABS: Anion Gap 8 (5-15); Carbon Dioxide 24 mmol/L (20-31); Chloride 109 mmol/L (98-107); Potassium 3.4 mmol/L (3.5-5.1); Sodium 141 mmol/L (136-145)
[2024-04-05 06:10] LABS: Calcium 8.3 mg/dL (8.7-10.4)
[2024-04-05 06:15] LABS: Blood Urea Nitrogen < 5 mg/dL (9-23); Glucose 90 mg/dL (74-106)
--- NOTE | 2024-04-05 11:15 | DVHPN2 ---
Subjective The patient seen and examined at bedside. The patient complains of left major labia pain and swollen. Reviewed: Care Plan, H&P Changes from previous H/P or p: No Changes Eyes: No Pain, No Vision change, No Conjunctivae inflammation, No Eyelid inflammation, No Other, No Redness ENT: No Ear pain, No Ear discharge, No Nose pain, No Nose discharge, No Nose congestion, No Mouth pain, No Mouth swelling, No Throat pain, No Throat swelling, No Other Cardiovascular: No Chest Pain, No Palpitations, No Orthopnea, No Paroxysmal Noc. Dyspnea, No Edema, No Lt Headedness, No Other Respiratory: No Cough, No Dry, No Shortness of breath, No SOB with excertion, No Wheezing, No Hemoptysis, No Pleuritic Pain, No Sputum, No Other Gastrointestinal: Nausea, Vomiting, Abdominal Pain, Diarrhea; No Constipation, No Melena, No Hematochezia, No Other Genitourinary: No Dysuria, No Frequency, No Incontinence, No Hematuria, No Retention, No Other Musculoskeletal: No other, No neck pain, No shoulder pain, No arm pain, No back pain, No hand pain, No leg pain, No foot pain Skin: No Rash, No Lesions, No Jaundice, No Bruising, No Other Objective Vitals Vital Signs Date Time Temp Pulse Resp B/P (MAP) Pulse Ox O2 Delivery O2 Flow Rate FiO2 04/05/24 10:31 74 16 114/60 04/05/24 08:54 98.4 98 98.4 04/04/24 20:30 Room Air* 0 21 Intake/Output Intake and Output 04/05/24 07:00 Intake Total 1480 ml Output Total 50 ml Balance 1430 ml Intake Oral 480 ml IV Total 700 ml Blood Product 300 ml Drainage Total 50 ml # Voids 4 # Bowel Movements 1 General Appearance: Alert, Oriented X3 Cardiovascular: Regular rate, Normal S1, Normal S2 Abdomen: Normal bowel sounds Medications Current Medications Medications Dose Ordered Sig/Johny Route Start Time Stop Time Status Last Admin Dose Admin Vancomycin HCl 0 ml @ 0 mls/hr UD IV 04/01/24 04:45 Ondansetron HCl 4 mg Q4HP PRN IV 04/01/24 04:45 04/05/24 04:31 4 MG Morphine Sulfate 2 mg Q4HPRN PRN IV 04/01/24 04:45 04/05/24 10:31 2 MG Nitroglycerin 0.4 mg Q5MINP PRN SL 04/01/24 04:45 Morphine Sulfate 2 mg Q30M PRN IV 04/01/24 04:45 Pantoprazole Sodium 40 mg DAILY IV 04/02/24 10:00 04/05/24 10:09 40 MG Piperacillin Sod/ Tazobactam Sod 100 ml @ 25 mls/hr Q6HR IV 04/01/24 12:00 UNV Piperacillin Sod/ Tazobactam Sod 100 ml @ 25 mls/hr Q8H IV 04/01/24 18:00 04/05/24 10:09 25 MLS/HR Diphenhydramine HCl 25 mg Q6HP PRN IV 04/01/24 17:00 Enoxaparin Sodium 40 mg DAILY SC 04/02/24 10:00 04/05/24 10:09 40 MG Vancomycin HCl 200 ml @ 200 mls/hr Q10H IV 04/03/24 01:00 04/05/24 03:11 200 MLS/HR Oxycodone/ Acetaminophen 1 tab Q6HP PRN PO 04/02/24 16:30 04/05/24 00:31 1 TAB Acetaminophen 650 mg Q8HPRN PRN PO 04/02/24 16:45 04/03/24 19:05 650 MG Sodium Chloride 60 ml Q8HR IV 04/04/24 00:00 Cancel Sodium Chloride 1,000 ml @ 60 mls/hr [id number] IV 04/04/24 02:30 04/04/24 02:48 60 MLS/HR Levetiracetam 750 mg BID PO 04/04/24 11:30 04/05/24 10:09 750 MG Laboratory Results Laboratory Tests 04/04/24 14:10 04/05/24 05:29 Chemistry Test 04/05/24 05:29 Calcium Level 8.3 mg/dL (8.7-10.4) L Urinalysis Test 04/01/24 05:28 Urine Color Yellow (Yellow) Urine Clarity Clear (Clear) Urine pH 6.5 (5.0-9.0) Urine Specific [place] > 1.050 (1.001-1.035) Urine Protein 1+ (Negative) H Urine Ketones Negative (Negative) Urine Blood 2+ /uL (Negative) H Urine Nitrite Negative (Negative) Urine Bilirubin Negative (Negative) Urine Urobilinogen Normal mg/dL (Negative) Urine Leukocyte Esterase 2+ /uL (Negative) Urine RBC 17 /hpf (0 - 4) Urine WBC 31 /hpf (0 - 5) Urine Squamous Epithelial Cells Few /hpf (<5) Urine Bacteria Few /hpf (None Seen) H Urine Glucose Normal mg/dL (Normal) Microbiology Microbiology Date/Time Source Procedure Growth Status 04/03/24 10:20 Aspirate Gram Stain - Final Resulted 04/03/24 10:20 Aspirate Body Fluid Culture - Preliminary Resulted 04/02/24 19:58 Blood Blood Culture - Preliminary NO GROWTH AFTER 48 HOURS OF INCUBATION. Resulted 04/02/24 15:00 Urine - [place] Urine Culture - Final Complete 04/01/24 20:35 Nose MRSA Screen - Final Complete Labs and/or images reviewed: Labs reviewed by me Assessment/Plan Assessment/Plan # sepsis due to pelvic wall abscess and anterior wall abscess of the uterus IV fluids IV antibiotics, Vanco and Zosyn Blood culture Lactic acid levels Status post IR drainage. Waiting for culture. # pelvic wall abscess and anterior wall episode of the uterus -IV vancomycin plus Zosyn OBGYN consult Status post do drainage to the pelvic abscess. Patient now feel much better. # intractable nausea/vomiting in the setting of sepsis -IV ondansetron p.r.n. -continue clear liquid, advance as tolerated # intractable diarrhea in the setting of sepsis, improving -IV fluids -continue clear liquid diet, advance as tolerated # epilepsy Continue home medication # history of rheumatoid arthritis Patient does not take any active medication We will monitor # recent history of OBGYN consult #Swollen of left major labia. Secondary to 3rd spacing. Recommend icepack to the area. Ob no further intervention Lines Midline DVT prophylaxis -Low dose Lovenox 40mg SC daily Continuing current management. Waiting for culture results from the abscess drainage. Antibiotic when discharge per ID recommendation. Discharge planning Plan discussed with: Patient My Orders Orders - CECILIO MOISE MD Procedure Category Date Status Time Levetiracetam Tablet PHA 04/04/24 In Process (Keppra Tablet) 11:30 * Admitting Representative Consultation CONS 04/04/24 Transmitted 11:44 * Dietary Consult CONS 04/04/24 Transmitted 13:35 Date of Service: Apr 05, 2024 Billing Provider: CECILIO MOISE MD Common Visit Codes: [id number] INP/OBS CARE(HIGH) CECILIO MOISE MD Apr 05, 2024 11:15
--- NOTE | 2024-04-05 12:08 | DVHPN2 ---
Subjective Progress Notes Subjective Post op C/S Pelvic and abd wall abscess s/p IR drainage s/p blood transfusion S: Pain is moderate. Mild vaginal bleeding (lochia) and vulvar edema. Denies fever/chills in almost 48 hrs Objective PHYSICAL EXAM Physical Exam: Alert, NAD Abd Soft, mild tenderness, incision erythema decreased, spont drainage from left corner of Pfannenstiel incision Vulvar edema, no mass Ext Neg ladan sign Vital Signs and I&O Vital Signs Date Time Temp Pulse Resp B/P (MAP) Pulse Ox O2 Delivery O2 Flow Rate FiO2 04/05/24 10:31 74 16 114/60 04/05/24 08:54 98.4 98 98.4 04/04/24 20:30 Room Air* 0 21 Intake and Output 04/05/24 07:00 Intake Total 1480 ml Output Total 50 ml Balance 1430 ml Intake Oral 480 ml IV Total 700 ml Blood Product 300 ml Drainage Total 50 ml # Voids 4 # Bowel Movements 1 Lab results Laboratory Tests Test 04/01/24 00:50 04/01/24 03:15 04/01/24 05:02 04/01/24 05:28 Range/Units White Blood Count 23.7 H 22.0 H 4.4-10.8 10^3/uL Red Blood Count 3.71 L 3.55 L 4.0-5.20 10^6/uL Hemoglobin 10.3 L 10.0 L 12.2-16.2 g/dL Hematocrit 30.9 L 29.8 L 36.0-46.0 % Mean Corpuscular Volume 83.4 84.0 80.0-100.0 fL Mean Corpuscular Hemoglobin 27.9 L 28.3 28.0-32.0 pg Mean Corpuscular Hemoglobin Concent 33.5 33.7 32.0-36.0 g/dL Red Cell Distribution Width 14.9 H 15.2 H 11.8-14.3 % Platelet Count 697 H 610 H 140-450 10^3/uL Mean Platelet Volume 6.0 L 6.0 L 6.9-10.8 fL Neutrophils (%) (Auto) 87.8 H 83.5 H 37.0-80.0 % Lymphocytes (%) (Auto) 5.9 L 10.7 10.0-50.0 % Monocytes (%) (Auto) 6.2 5.4 0.0-12.0 % Eosinophils (%) (Auto) 0.0 0.1 0.0-7.0 % Basophils (%) (Auto) 0.1 0.3 0.0-2.0 % Neutrophils # (Auto) 20.8 H 18.4 H 1.6-8.6 10 ^3/uL Lymphocytes # (Auto) 1.4 2.4 0.4-5.4 10 ^3/uL Monocytes # (Auto) 1.5 H 1.2 0-1.3 10 ^3/uL Eosinophils # (Auto) 0 0 0-0.8 10 ^3/uL Basophils # (Auto) 0 0.1 0-0.2 10 ^3/uL Nucleated Red Blood Cells 0.0 0.2 % Sodium Level 144 144 136-145 mmol/L Potassium Level 2.6 L 3.1 L 3.5-5.1 mmol/L Chloride Level 109 H 112 H 98-107 mmol/L Carbon Dioxide Level 23 19 L 20-31 mmol/L Anion Gap 12 13 5-15 Blood Urea Nitrogen 18 16 9-23 mg/dL Creatinine 0.98 0.82 0.550-1.02 mg/dL Glomerular Filtration Rate Calc 80 99 >90 mL/min BUN/Creatinine Ratio 18.4 19.5 10.0-20.0 Serum Glucose 108 H 102 74-106 mg/dL Calcium Level 9.2 8.6 L 8.7-10.4 mg/dL Total Bilirubin 0.4 0.3 0.2-1.0 mg/dL Aspartate Amino Transferase (AST) 14 12 L 13-40 U/L Alanine Aminotransferase (ALT) 12 9 7-40 U/L Alkaline Phosphatase 154 H 137 H 46-116 U/L Total Protein 7.2 6.6 5.7-8.2 g/dL Albumin 3.8 3.4 3.2-4.8 g/dL Lactic Acid Level 1.3 0.4-2.0 mmol/L Urine Color Yellow Yellow Urine Clarity Clear Clear Urine pH 6.5 5.0-9.0 Urine Specific [place] > 1.050 H 1.001-1.035 Urine Protein 1+ H Negative Urine Ketones Negative Negative Urine Blood 2+ H Negative /uL Urine Nitrite Negative Negative Urine Bilirubin Negative Negative Urine Urobilinogen Normal Negative mg/dL Urine Leukocyte Esterase 2+ Negative /uL Urine RBC 17 0 - 4 /hpf Urine WBC 31 0 - 5 /hpf Urine Squamous Epithelial Cells Few <5 /hpf Urine Bacteria Few H None Seen /hpf Urine Glucose Normal Normal mg/dL Urine Opiates Screen Neg NEGATIVE Urine Fentanyl Screen Neg NEGATIVE Urine Barbiturates Screen Neg NEGATIVE Urine Phencyclidine Screen Neg NEGATIVE Urine Amphetamines Screen Neg NEGATIVE Urine Benzodiazepines Screen Neg NEGATIVE Urine Cocaine Screen Neg NEGATIVE Urine Cannabinoids Screen Neg NEGATIVE Test 04/01/24 09:36 04/02/24 05:02 04/02/24 14:00 04/02/24 19:58 Range/Units Prothrombin Time 13.6 H 13.4 H 9.3-11.8 sec Prothrombin Time INR 1.31 H 1.29 H 0.9-1.15 Activated Partial Thromboplast Time 37.3 H 35.2 H 24.5-34.5 SEC Lactic Acid Level 1.0 0.4-2.0 mmol/L White Blood Count 16.3 #H 4.4-10.8 10^3/uL Red Blood Count 3.30 L 4.0-5.20 10^6/uL Hemoglobin 9.1 L 12.2-16.2 g/dL Hematocrit 27.7 L 36.0-46.0 % Mean Corpuscular Volume 83.8 80.0-100.0 fL Mean Corpuscular Hemoglobin 27.4 L 28.0-32.0 pg Mean Corpuscular Hemoglobin Concent 32.7 32.0-36.0 g/dL Red Cell Distribution Width 14.6 H 11.8-14.3 % Platelet Count 564 H 140-450 10^3/uL Mean Platelet Volume 6.0 L 6.9-10.8 fL Neutrophils (%) (Auto) 80.3 H 37.0-80.0 % Lymphocytes (%) (Auto) 13.9 10.0-50.0 % Monocytes (%) (Auto) 5.2 0.0-12.0 % Eosinophils (%) (Auto) 0.2 0.0-7.0 % Basophils (%) (Auto) 0.4 0.0-2.0 % Neutrophils # (Auto) 13.1 H 1.6-8.6 10 ^3/uL Lymphocytes # (Auto) 2.3 0.4-5.4 10 ^3/uL Monocytes # (Auto) 0.8 0-1.3 10 ^3/uL Eosinophils # (Auto) 0 0-0.8 10 ^3/uL Basophils # (Auto) 0.1 0-0.2 10 ^3/uL Nucleated Red Blood Cells 0.1 % Sodium Level 140 136-145 mmol/L Potassium Level 2.8 L 3.5-5.1 mmol/L Chloride Level 109 H 98-107 mmol/L Carbon Dioxide Level 21 20-31 mmol/L Anion Gap 10 5-15 Blood Urea Nitrogen 8 L 9-23 mg/dL Creatinine 0.76 0.550-1.02 mg/dL Glomerular Filtration Rate Calc 108 >90 mL/min BUN/Creatinine Ratio 10.5 10.0-20.0 Serum Glucose 86 74-106 mg/dL Calcium Level 8.3 L 8.7-10.4 mg/dL Magnesium Level 2.0 1.6-2.6 mg/dL Total Bilirubin 0.4 0.2-1.0 mg/dL Aspartate Amino Transferase (AST) 10 L 13-40 U/L Alanine Aminotransferase (ALT) 10 7-40 U/L Alkaline Phosphatase 123 H 46-116 U/L Total Protein 5.7 5.7-8.2 g/dL Albumin 2.8 L 3.2-4.8 g/dL Vancomycin Level Trough 7.3 5-10 ug/mL Test 04/03/24 04:59 04/03/24 23:10 04/04/24 06:12 04/04/24 14:10 Range/Units White Blood Count 22.3 #H 17.8 H 13.9 H 4.4-10.8 10^3/uL Red Blood Count 2.65 L 2.51 L 3.44 L 4.0-5.20 10^6/uL Hemoglobin 7.3 #L 6.8 *L 9.8 #L 12.2-16.2 g/dL Hematocrit 22.4 #L 21.7 L 29.2 #L 36.0-46.0 % Mean Corpuscular Volume 84.6 86.7 85.0 80.0-100.0 fL Mean Corpuscular Hemoglobin 27.7 L 27.1 L 28.4 28.0-32.0 pg Mean Corpuscular Hemoglobin Concent 32.7 31.2 L 33.4 32.0-36.0 g/dL Red Cell Distribution Width 15.0 H 15.7 H 15.1 H 11.8-14.3 % Platelet Count 480 H 486 H 477 H 140-450 10^3/uL Mean Platelet Volume 5.8 L 6.0 L 6.1 L 6.9-10.8 fL Neutrophils (%) (Auto) 80.6 H 78.7 76.4 37.0-80.0 % Lymphocytes (%) (Auto) 12.2 15.2 17.7 10.0-50.0 % Monocytes (%) (Auto) 6.7 5.4 4.9 0.0-12.0 % Eosinophils (%) (Auto) 0.3 0.5 0.8 0.0-7.0 % Basophils (%) (Auto) 0.2 0.2 0.2 0.0-2.0 % Neutrophils # (Auto) 18.0 H 14.0 H 10.6 H 1.6-8.6 10 ^3/uL Lymphocytes # (Auto) 2.7 2.7 2.5 0.4-5.4 10 ^3/uL Monocytes # (Auto) 1.5 H 1.0 0.7 0-1.3 10 ^3/uL Eosinophils # (Auto) 0.1 0.1 0.1 0-0.8 10 ^3/uL Basophils # (Auto) 0 0 0 0-0.2 10 ^3/uL Nucleated Red Blood Cells 0.0 0.1 0.0 % Sodium Level 139 138 140 136-145 mmol/L Potassium Level 3.5 3.6 3.7 3.5-5.1 mmol/L Chloride Level 109 H 110 H 108 H 98-107 mmol/L Carbon Dioxide Level 23 22 24 20-31 mmol/L Anion Gap 7 6 8 5-15 Blood Urea Nitrogen < 5 L < 5 L 6 L 9-23 mg/dL Creatinine 0.60 0.54 L 0.46 L 0.550-1.02 mg/dL Glomerular Filtration Rate Calc 124 127 132 >90 mL/min BUN/Creatinine Ratio 8.3 L 9.3 L 13.0 10.0-20.0 Serum Glucose 96 88 89 74-106 mg/dL Calcium Level 7.9 L 7.8 L 7.9 L 8.7-10.4 mg/dL Phosphorus Level 2.8 2.4-5.1 mg/dL Magnesium Level 2.0 1.6-2.6 mg/dL Total Bilirubin 0.2 0.2-1.0 mg/dL Aspartate Amino Transferase (AST) 16 13-40 U/L Alanine Aminotransferase (ALT) 10 7-40 U/L Alkaline Phosphatase 107 46-116 U/L Total Protein 5.2 L 5.7-8.2 g/dL Albumin 2.6 L 3.2-4.8 g/dL Vancomycin Level Trough 11.4 H 5-10 ug/mL Test 04/05/24 05:29 Range/Units Sodium Level 141 136-145 mmol/L Potassium Level 3.4 L 3.5-5.1 mmol/L Chloride Level 109 H 98-107 mmol/L Carbon Dioxide Level 24 20-31 mmol/L Anion Gap 8 5-15 Blood Urea Nitrogen < 5 L 9-23 mg/dL Creatinine 0.50 L 0.550-1.02 mg/dL Glomerular Filtration Rate Calc 129 >90 mL/min BUN/Creatinine Ratio 10.0 10.0-20.0 Serum Glucose 90 74-106 mg/dL Calcium Level 8.3 L 8.7-10.4 mg/dL Assessment and Plan ASSESSMENT AND PLAN Assessment and Plan Pelvic Abscess s/p IR drainage Plan: Would recommend switch to oral antibiotics and outpatient follow up in office My orders: Orders - BETHANIE LOPEZ DO * Radiologist Consult (04/01/24 09:20) * Surgical Consult (04/01/24 ) Plan discussed with: Patient Date of Service: Apr 05, 2024 Billing Provider: BETHANIE LOPEZ DO Common Visit Codes: [id number] INP/OBS CARE(MOD) BETHANIE LOPEZ DO Apr 05, 2024 12:08
--- NOTE | 2024-04-05 21:15 | DVHINCON2 ---
Date of service: Apr 05, 2024 Allergies: Coded Allergies: Latex (Verified Allergy, Unknown, 10/27/23) Home Meds Active Scripts Ibuprofen (Ibuprofen) 800 Mg Tab, 800 MG PO Q8HP PRN, #30 TAB Prov:BETHANIE LOPEZ DO 03/16/24 Hydrocodone-Acetaminophen (Hydrocodone/Acetaminophen 5-325 mg) 1 Tab Tab, 1 TAB PO Q6HPRN PRN, #20 TAB Prov:BETHANIE LOPEZ DO 03/16/24 Vit W/ Ferrous Fumara ( One Daily) Daily Tab, 1 TAB PO DAILY, #90 TAB 3 Refills Prov:ANAMIKALaHILLARY LIUJOHNNA CN 01/27/24 Reported Medications Levetiracetam (Keppra) 750 Mg Tab, 750 MG PO BID, TAB 04/04/24 Vital Signs Vital Signs Date Time Temp Pulse Resp B/P (MAP) Pulse Ox O2 Delivery O2 Flow Rate FiO2 04/05/24 19:58 78 18 111/75 04/05/24 17:08 98.1 96 98.1 04/05/24 08:00 Room Air* 0 21 Labs/Diagnostic Data Labs Test 04/05/24 12:21 04/05/24 05:29 04/04/24 14:10 04/03/24 23:10 Range/Units Vancomycin Level Trough 13.7 H 5-10 ug/mL Sodium Level 141 136-145 mmol/L Potassium Level 3.4 L 3.5-5.1 mmol/L Chloride Level 109 H 98-107 mmol/L Carbon Dioxide Level 24 20-31 mmol/L Anion Gap 8 5-15 Blood Urea Nitrogen < 5 L 9-23 mg/dL Creatinine 0.50 L 0.550-1.02 mg/dL Glomerular Filtration Rate Calc 129 >90 mL/min BUN/Creatinine Ratio 10.0 10.0-20.0 Serum Glucose 90 74-106 mg/dL Calcium Level 8.3 L 8.7-10.4 mg/dL White Blood Count 13.9 H 4.4-10.8 10^3/uL Red Blood Count 3.44 L 4.0-5.20 10^6/uL Hemoglobin 9.8 #L 12.2-16.2 g/dL Hematocrit 29.2 #L 36.0-46.0 % Mean Corpuscular Volume 85.0 80.0-100.0 fL Mean Corpuscular Hemoglobin 28.4 28.0-32.0 pg Mean Corpuscular Hemoglobin Concent 33.4 32.0-36.0 g/dL Red Cell Distribution Width 15.1 H 11.8-14.3 % Platelet Count 477 H 140-450 10^3/uL Mean Platelet Volume 6.1 L 6.9-10.8 fL Neutrophils (%) (Auto) 76.4 37.0-80.0 % Lymphocytes (%) (Auto) 17.7 10.0-50.0 % Monocytes (%) (Auto) 4.9 0.0-12.0 % Eosinophils (%) (Auto) 0.8 0.0-7.0 % Basophils (%) (Auto) 0.2 0.0-2.0 % Neutrophils # (Auto) 10.6 H 1.6-8.6 10 ^3/uL Lymphocytes # (Auto) 2.5 0.4-5.4 10 ^3/uL Monocytes # (Auto) 0.7 0-1.3 10 ^3/uL Eosinophils # (Auto) 0.1 0-0.8 10 ^3/uL Basophils # (Auto) 0 0-0.2 10 ^3/uL Nucleated Red Blood Cells 0.0 % Phosphorus Level 2.8 2.4-5.1 mg/dL Magnesium Level 2.0 1.6-2.6 mg/dL Total Bilirubin 0.2 0.2-1.0 mg/dL Aspartate Amino Transferase (AST) 16 13-40 U/L Alanine Aminotransferase (ALT) 10 7-40 U/L Alkaline Phosphatase 107 46-116 U/L Total Protein 5.2 L 5.7-8.2 g/dL Albumin 2.6 L 3.2-4.8 g/dL Test 04/02/24 19:58 04/01/24 09:36 04/01/24 05:28 Range/Units Prothrombin Time 13.4 H 9.3-11.8 sec Prothrombin Time INR 1.29 H 0.9-1.15 Activated Partial Thromboplast Time 35.2 H 24.5-34.5 SEC Lactic Acid Level 1.0 0.4-2.0 mmol/L Urine Color Yellow Yellow Urine Clarity Clear Clear Urine pH 6.5 5.0-9.0 Urine Specific [place] > 1.050 H 1.001-1.035 Urine Protein 1+ H Negative Urine Ketones Negative Negative Urine Blood 2+ H Negative /uL Urine Nitrite Negative Negative Urine Bilirubin Negative Negative Urine Urobilinogen Normal Negative mg/dL Urine Leukocyte Esterase 2+ Negative /uL Urine RBC 17 0 - 4 /hpf Urine WBC 31 0 - 5 /hpf Urine Squamous Epithelial Cells Few <5 /hpf Urine Bacteria Few H None Seen /hpf Urine Glucose Normal Normal mg/dL Urine Opiates Screen Neg NEGATIVE Urine Fentanyl Screen Neg NEGATIVE Urine Barbiturates Screen Neg NEGATIVE Urine Phencyclidine Screen Neg NEGATIVE Urine Amphetamines Screen Neg NEGATIVE Urine Benzodiazepines Screen Neg NEGATIVE Urine Cocaine Screen Neg NEGATIVE Urine Cannabinoids Screen Neg NEGATIVE Microbiology Date/Time Source Procedure Growth Status 04/03/24 10:20 Aspirate Gram Stain - Final Resulted 04/03/24 10:20 Aspirate Body Fluid Culture - Preliminary Resulted 04/02/24 19:58 Blood Blood Culture - Preliminary NO GROWTH AFTER 72 HOURS OF INCUBATION. Resulted 04/02/24 15:00 Urine - [place] Urine Culture - Final Complete 04/01/24 20:35 Nose MRSA Screen - Final Complete Problems(with codes): (1) Abdominal abscess (2) Thrombocytosis (3) Leukocytosis, unspecified (4) Nausea and vomiting during Plan/Recommendation ASSESSMENT AND PLAN: ID Problem List: - status - Postoperative surgical site complications - Anterior pelvic wall abscess - Uterine wall abscess - Leukocytosis - Thrombocytosis - Tachycardia - Shortness of breath Assessment: This is a 28 y.o. female, , with a past medical history of cholecystectomy, who presents with one week of nausea, fevers, chills, abdominal pain over the C- section suture line, and induration and swelling at the surgical site. Patient underwent section and tubal ligation on March 16 with a normal recovery until she developed the aforementioned symptoms. Physical exam is significant for a distended abdomen, tenderness in the suprapubic area, tachycardia, shortness of breath, diminished breath sounds at lung bases, and erythema with induration of the surgical site without drainage. Laboratory data reveals leukocytosis (WBC 23.7), thrombocytosis (platelet count 697), and a lactic acid level of 1.3. Blood cultures are no growth to date. MRSA nasal swab is negative. Urine culture is no growth to date. Imaging studies include a CT abdomen and pelvis revealing a large anterior pelvic wall abscess measuring approximately 13.5 x 9.3 x 10.5 cm with an air- fluid level extending into the pelvic cavity anterior to the urinary bladder. An additional hypodense collection within the anterior wall of the uterus communicates with the pelvic wall abscess and the endometrial canal. Other findings include fat stranding and air foci in the anterior pelvic wall soft tissues. The patient underwent CT-guided drainage with placement of an 8.5 Tamazight drain in the pelvic abscess and an 8 Tamazight drain in the abdominal abscess. Approximately 550 cc of thick purulent fluid were aspirated and drained. Preliminary cultures from the abscess fluid show Bacillus non-anthracis species; however, samples were obtained after initiation of broad-spectrum antibiotics. The patient has been on vancomycin and Zosyn since admission with an improving white count. She is tolerating diet. Plan: - Continue vancomycin and Zosyn. - Follow up on aspirated culture results. - Monitor drainage output from ABIOLA drains and assess clinical signs of infection. - Consider switching to oral antibiotics when appropriate to ensure adequate penetration, selecting agents compatible with if the patient plans to resume. - Plan for repeat CT abdomen and pelvis in 30 days to assess resolution. - Arrange outpatient follow-up with gynecology to evaluate abscess resolution; surgical intervention may be necessary if abscesses do not clear. Isolation Precautions: standard Assessment and plan were discussed with the patient as written above. Plan is subject to change pending incorporation of new incoming information/diagnostics. Updates may be added as an addendum at the bottom (OR TOP) of this note. Thank you for the interesting consult. We will continue to follow. Please contact us for any questions or concerns. Ben Harley M.D. [facility]: ? History: The patient's chart and medications were reviewed in detail, and the patient was seen and examined. History obtained from: patient Ms. Ernst is a 28 y.o. female, , with a past medical history of cholecystectomy, who presents with one week of nausea, fevers, chills, abdominal pain over the suture line, and induration and swelling at the surgical site. She reports intermittent nausea, vomiting, and worsening diarrhea over this period. She underwent section and tubal ligation on March 16 with an initially normal recovery. She was on [place] for pain management during this time and was but has since stopped. She denies other medical conditions. She had a prior uncomplicated for her first child. She denies smoking, alcohol use, and IV drug use. She is allergic to latex. Review of Systems: A complete 10-system review of systems was completed and negative except as noted in the HPI or here. ROS: - CONSTITUTIONAL: Reports fevers and chills; denies weight loss. - HEENT: Denies changes in vision and hearing. - RESPIRATORY: Reports shortness of breath. - CV: Reports tachycardia; denies chest pain. - GI: Reports nausea, vomiting, abdominal pain, and diarrhea. - : Denies dysuria and urinary frequency. - MSK: Denies myalgia and joint pain. - SKIN: Reports erythema and swelling over the surgical site. - NEUROLOGICAL: Denies headache and syncope. - PSYCHIATRIC: Denies recent changes in mood, anxiety, and depression. Past Medical History: Diagnosis Date None reported Past Surgical History: History reviewed. section x2 (most recent on 03/16/2024) Tubal ligation (03/16/2024) Cholecystectomy Home Medications: Prior to Admission medications Medication Sig HYDROcodone-acetaminophen ([place]) 10-325 mg tablet Take 1 tablet by mouth every 6 hours as needed for pain. Allergies: Allergies Latex allergy Family History: No notable family history reported. Social History: Socioeconomic History Marital status: Not on file Number of children: 3 Occupation: Not on file Tobacco Use Smoking status: Never Substance Use Alcohol use: Never Drug use: Never Social History Narrative Denies smoking, alcohol, and illicit drug use. Social Determinants of Health Not on file Objective: Vital Signs on Arrival: Temp: 98.6101 F BP: 105/66 mmHg Pulse: Tachycardic Resp: 21 SpO2: 97% on room air Most Recent Vital Signs: Temp: [Not specified] BP: [Not specified] Pulse: [Not specified] Resp: [Not specified] SpO2: [Not specified] Admission Weight: [Not specified] Physical Exam: General: NAD Neck: Supple. No masses. HEENT: PERRL. Normal lids and conjunctiva. Moist mucous membranes. Oropharynx without lesions, exudates, or excessive erythema. Normal appearance of the external aspects of the nose and ears. Heart: Regular rhythm, tachycardic. No murmur. No lower extremity edema. Lungs: Diminished breath sounds at bases bilaterally. Shortness of breath noted. Abdomen: Distended. Tenderness in suprapubic area. No masses or abdominal hernia. Msk: No digital cyanosis. Normal strength and tone in all 4 limbs. Skin: Warm and dry. Erythema with induration at the base of the surgical incision; no drainage observed. Neuro: Alert. No facial droop or slurred speech. Extra-ocular movements intact. Sensation intact to soft touch in all 4 limbs. Psych: Appropriate mood. Full affect. Oriented to person, place, time, and situation. Lines: Active Lines Peripheral IV Line [Date/Time] [Location] [Gauge] [Duration] Diagnostic Studies: Available diagnostic studies were reviewed personally. Significant relevant results and findings are outlined below or addressed in the Assessment and Plan above. Laboratory Results: - WBC: 23.7 (elevated) - Hemoglobin: 10.3 - Platelets: 697 (elevated) - Sodium: 140 - Chloride: 109 - Creatinine: 0.78 - Alkaline phosphatase: 123 AST: 10 ALT: 10 - Bilirubin: 0.4 - Lactic acid: 1.3 Microbiology: - Blood cultures: No growth to date - MRSA nasal swab: Negative - Urine culture: No growth to date Pertinent Imaging: Recent Results: Chest X-ray: - Impression IMPRESSION: 1. No acute cardiopulmonary disease. CT Abdomen and Pelvis: - Impression IMPRESSION: 1. Well-defined, thick-walled peripheral enhancing collection measuring approximately 13.5 x 9.3 x 10.5 cm with an air-fluid level in the anterior pelvic wall, extending into the pelvic cavity anterior to the urinary bladder, suggestive of a formed abscess. 2. Hypodense collection measuring 5.2 x 3.3 x 3 cm with air foci within the anterior wall of the uterus, superior to the dome of the urinary bladder, communicating with the pelvic wall abscess and the endometrial canal. 3. Mild hypodense collection with air foci within the endometrial canal approximately 17 x 15 mm. 4. Left adnexal lesion likely representing a left ovarian follicular cyst. 5. No abdominal lymphadenopathy or ascites. 6. Fat stranding and air foci in the subcutaneous plane of the anterior pelvic wall. 7. Partially distended urinary bladder with circumferential soft tissue density and wall thickening, possibly due to under-distention cystitis. 8. Bosniak class I simple renal cortical cyst measuring 11 mm at the left lower pole of the kidney. 9. Hepatomegaly with the right lobe of the liver measuring 18.8 cm. Plan discussed with: Patient BEN HARLEY MD Apr 05, 2024 21:15
--- NOTE | 2024-04-05 21:34 | DVHPN2 ---
Progress Note - Dictate Date Seen: Apr 05, 2024 Medical Necessity Reason Pt with a Central, PICC or Fol: No The following are medically ne: Chavarria Catheter Reason for chavarria catheter: Strict I&O Subjective Patient seen and examined at bedside. Breathing on room air. Overnight events reviewed. vital signs Vital Sign Date Time Temp Pulse Resp B/P (MAP) Pulse Ox O2 Delivery O2 Flow Rate FiO2 04/05/24 20:28 74 18 109/71 04/05/24 17:08 98.1 96 98.1 04/05/24 08:00 Room Air* 0 21 Total Intake and Output 04/04/24 04/04/24 04/05/24 15:00 23:00 07:00 Intake Total 300 ml 250 ml 930 ml Output Total 50 ml Balance 300 ml 250 ml 880 ml medications Current Medications Medications Dose Ordered Sig/Johny Route Start Time Stop Time Status Last Admin Dose Admin Vancomycin HCl 0 ml @ 0 mls/hr UD IV 04/01/24 04:45 Ondansetron HCl 4 mg Q4HP PRN IV 04/01/24 04:45 04/05/24 04:31 4 MG Morphine Sulfate 2 mg Q4HPRN PRN IV 04/01/24 04:45 04/05/24 19:58 2 MG Nitroglycerin 0.4 mg Q5MINP PRN SL 04/01/24 04:45 Morphine Sulfate 2 mg Q30M PRN IV 04/01/24 04:45 Pantoprazole Sodium 40 mg DAILY IV 04/02/24 10:00 04/05/24 10:09 40 MG Piperacillin Sod/ Tazobactam Sod 100 ml @ 25 mls/hr Q6HR IV 04/01/24 12:00 UNV Piperacillin Sod/ Tazobactam Sod 100 ml @ 25 mls/hr Q8H IV 04/01/24 18:00 04/05/24 17:31 25 MLS/HR Diphenhydramine HCl 25 mg Q6HP PRN IV 04/01/24 17:00 Enoxaparin Sodium 40 mg DAILY SC 04/02/24 10:00 04/05/24 10:09 40 MG Vancomycin HCl 200 ml @ 200 mls/hr Q10H IV 04/03/24 01:00 04/05/24 14:41 200 MLS/HR Oxycodone/ Acetaminophen 1 tab Q6HP PRN PO 04/02/24 16:30 04/05/24 12:30 1 TAB Acetaminophen 650 mg Q8HPRN PRN PO 04/02/24 16:45 04/03/24 19:05 650 MG Sodium Chloride 60 ml Q8HR IV 04/04/24 00:00 Cancel Sodium Chloride 1,000 ml @ 60 mls/hr [id number] IV 04/04/24 02:30 04/05/24 16:45 60 MLS/HR Levetiracetam 750 mg BID PO 04/04/24 11:30 04/05/24 21:22 750 MG objective Gen.: Patient lying in bed in no apparent distress. Breathing on room air. Head: Normocephalic, atraumatic. Eyes: EOMI/PERRLA. Ears: Normal hearing. Normal anatomy. Neck/trachea: Trachea midline, supple. Nose: Normal external anatomy. Mouth: Moist mucous membranes. Chest: Decreased air entry bilaterally. No wheezing or rhonchi. Cardiovascular: Positive S1, positive S2. Regular rate and rhythm. Abdomen: Positive bowel sounds in all 4 quadrants. Soft, non-tender, non- distended. : Deferred. Rectal: Deferred. Skin: Warm, dry. Intact. Extremities: 2+ radial pulses bilaterally. No lower extremity edema. Neuro: Awake, alert, oriented x3. No gross motor or sensory deficits. Cranial nerves II through XII intact. Gait not assessed. laboratory and microbiology Laboratory Tests 04/05/24 05:29 04/04/24 14:10 Test 04/05/24 05:29 Range/Units Serum Glucose 90 74-106 mg/dL Assessment/Plan Impression: Dyspnea Diarrhea S/p section Abdominal abscess Hypokalemia Events: Breathing on room air No respiratory distress. S/p placement of abdominal and pelvic drains by IR. Monitor drain output Continue antibiotics IS. Wound care Pain control Avoid oversedation Labs and imaging reviewed. Rest of plan as noted below. Plan: Supplemental oxygen PRN Titrate to keep O2 sats above 92%. Continue antibiotics - Zosyn, vancomycin. Incentive spirometry Pain control Avoid oversedation S/p placement of abdominal and pelvic drains by IR for drainage of abscess. Monitor renal function. Monitor electrolytes. Supplement as necessary. Monitor ins and outs. Potassium supplementation DVT prophylaxis. Prognosis: Poor given patient's multiple co-morbidities. Rest of plan per hospitalist and other consultants. Thank you Jovani Orona NP, for allowing me to participate in this patient's care. Further recommendations will depend on the patient's clinical course. Please do not hesitate to contact me if you have any questions or concerns. This medical document was created using an electronic medical record system with [employer] dictation system. Although these documentations are being carefully reviewed, there may still be some phonetic and typographical changes. The errors are purely typographical, due to imperfection on the software program, and do not reflect any compromise in the patient's medical care. Dietary Evaluation Review Comments: 1) Continue current plan of care Expected Outcomes/Goals: F/U in 3-5 days Plan discussed with: Patient, Other (VINCE Hillman) CC Plasma Assessment Blood Product Administration S: [id number] AALIYAH CARVALHO MD Apr 05, 2024 21:34
[2024-04-06] VITALS (9 sets, daily range): BP systolic 104–124; BP diastolic 62–79; PULSE 60–91; RESP 16–18; TEMP 97.9–98.9; O2SAT 95–98
--- NOTE | 2024-04-06 10:18 | DVHPN2 ---
Subjective Progress Notes Subjective Post op C/S with complication of Pelvic and abd wall abscesses s/p IR drainage s/p blood transfusion for anemia S: Pain is controlled. Tolerating regular diet. Denies fever/chills. Feels "better" Objective PHYSICAL EXAM Physical Exam: Alert, NAD Abd: Soft, decreased tenderness. mild drainage from incision, decreased erythema ext Neg Lucio sign Vital Signs and I&O Vital Signs Date Time Temp Pulse Resp B/P (MAP) Pulse Ox O2 Delivery O2 Flow Rate FiO2 04/06/24 08:55 98.2 71 17 124/79 (94) 96 98.2 04/06/24 07:30 Room Air* 0 21 Intake and Output 04/06/24 07:00 Intake Total 1625 ml Balance 1625 ml Intake Oral 925 ml IV Total 700 ml # Voids 5 # Bowel Movements 1 Lab results Laboratory Tests Test 04/01/24 00:50 04/01/24 03:15 04/01/24 05:02 04/01/24 05:28 Range/Units White Blood Count 23.7 H 22.0 H 4.4-10.8 10^3/uL Red Blood Count 3.71 L 3.55 L 4.0-5.20 10^6/uL Hemoglobin 10.3 L 10.0 L 12.2-16.2 g/dL Hematocrit 30.9 L 29.8 L 36.0-46.0 % Mean Corpuscular Volume 83.4 84.0 80.0-100.0 fL Mean Corpuscular Hemoglobin 27.9 L 28.3 28.0-32.0 pg Mean Corpuscular Hemoglobin Concent 33.5 33.7 32.0-36.0 g/dL Red Cell Distribution Width 14.9 H 15.2 H 11.8-14.3 % Platelet Count 697 H 610 H 140-450 10^3/uL Mean Platelet Volume 6.0 L 6.0 L 6.9-10.8 fL Neutrophils (%) (Auto) 87.8 H 83.5 H 37.0-80.0 % Lymphocytes (%) (Auto) 5.9 L 10.7 10.0-50.0 % Monocytes (%) (Auto) 6.2 5.4 0.0-12.0 % Eosinophils (%) (Auto) 0.0 0.1 0.0-7.0 % Basophils (%) (Auto) 0.1 0.3 0.0-2.0 % Neutrophils # (Auto) 20.8 H 18.4 H 1.6-8.6 10 ^3/uL Lymphocytes # (Auto) 1.4 2.4 0.4-5.4 10 ^3/uL Monocytes # (Auto) 1.5 H 1.2 0-1.3 10 ^3/uL Eosinophils # (Auto) 0 0 0-0.8 10 ^3/uL Basophils # (Auto) 0 0.1 0-0.2 10 ^3/uL Nucleated Red Blood Cells 0.0 0.2 % Sodium Level 144 144 136-145 mmol/L Potassium Level 2.6 L 3.1 L 3.5-5.1 mmol/L Chloride Level 109 H 112 H 98-107 mmol/L Carbon Dioxide Level 23 19 L 20-31 mmol/L Anion Gap 12 13 5-15 Blood Urea Nitrogen 18 16 9-23 mg/dL Creatinine 0.98 0.82 0.550-1.02 mg/dL Glomerular Filtration Rate Calc 80 99 >90 mL/min BUN/Creatinine Ratio 18.4 19.5 10.0-20.0 Serum Glucose 108 H 102 74-106 mg/dL Calcium Level 9.2 8.6 L 8.7-10.4 mg/dL Total Bilirubin 0.4 0.3 0.2-1.0 mg/dL Aspartate Amino Transferase (AST) 14 12 L 13-40 U/L Alanine Aminotransferase (ALT) 12 9 7-40 U/L Alkaline Phosphatase 154 H 137 H 46-116 U/L Total Protein 7.2 6.6 5.7-8.2 g/dL Albumin 3.8 3.4 3.2-4.8 g/dL Lactic Acid Level 1.3 0.4-2.0 mmol/L Urine Color Yellow Yellow Urine Clarity Clear Clear Urine pH 6.5 5.0-9.0 Urine Specific [place] > 1.050 H 1.001-1.035 Urine Protein 1+ H Negative Urine Ketones Negative Negative Urine Blood 2+ H Negative /uL Urine Nitrite Negative Negative Urine Bilirubin Negative Negative Urine Urobilinogen Normal Negative mg/dL Urine Leukocyte Esterase 2+ Negative /uL Urine RBC 17 0 - 4 /hpf Urine WBC 31 0 - 5 /hpf Urine Squamous Epithelial Cells Few <5 /hpf Urine Bacteria Few H None Seen /hpf Urine Glucose Normal Normal mg/dL Urine Opiates Screen Neg NEGATIVE Urine Fentanyl Screen Neg NEGATIVE Urine Barbiturates Screen Neg NEGATIVE Urine Phencyclidine Screen Neg NEGATIVE Urine Amphetamines Screen Neg NEGATIVE Urine Benzodiazepines Screen Neg NEGATIVE Urine Cocaine Screen Neg NEGATIVE Urine Cannabinoids Screen Neg NEGATIVE Test 04/01/24 09:36 04/02/24 05:02 04/02/24 14:00 04/02/24 19:58 Range/Units Prothrombin Time 13.6 H 13.4 H 9.3-11.8 sec Prothrombin Time INR 1.31 H 1.29 H 0.9-1.15 Activated Partial Thromboplast Time 37.3 H 35.2 H 24.5-34.5 SEC Lactic Acid Level 1.0 0.4-2.0 mmol/L White Blood Count 16.3 #H 4.4-10.8 10^3/uL Red Blood Count 3.30 L 4.0-5.20 10^6/uL Hemoglobin 9.1 L 12.2-16.2 g/dL Hematocrit 27.7 L 36.0-46.0 % Mean Corpuscular Volume 83.8 80.0-100.0 fL Mean Corpuscular Hemoglobin 27.4 L 28.0-32.0 pg Mean Corpuscular Hemoglobin Concent 32.7 32.0-36.0 g/dL Red Cell Distribution Width 14.6 H 11.8-14.3 % Platelet Count 564 H 140-450 10^3/uL Mean Platelet Volume 6.0 L 6.9-10.8 fL Neutrophils (%) (Auto) 80.3 H 37.0-80.0 % Lymphocytes (%) (Auto) 13.9 10.0-50.0 % Monocytes (%) (Auto) 5.2 0.0-12.0 % Eosinophils (%) (Auto) 0.2 0.0-7.0 % Basophils (%) (Auto) 0.4 0.0-2.0 % Neutrophils # (Auto) 13.1 H 1.6-8.6 10 ^3/uL Lymphocytes # (Auto) 2.3 0.4-5.4 10 ^3/uL Monocytes # (Auto) 0.8 0-1.3 10 ^3/uL Eosinophils # (Auto) 0 0-0.8 10 ^3/uL Basophils # (Auto) 0.1 0-0.2 10 ^3/uL Nucleated Red Blood Cells 0.1 % Sodium Level 140 136-145 mmol/L Potassium Level 2.8 L 3.5-5.1 mmol/L Chloride Level 109 H 98-107 mmol/L Carbon Dioxide Level 21 20-31 mmol/L Anion Gap 10 5-15 Blood Urea Nitrogen 8 L 9-23 mg/dL Creatinine 0.76 0.550-1.02 mg/dL Glomerular Filtration Rate Calc 108 >90 mL/min BUN/Creatinine Ratio 10.5 10.0-20.0 Serum Glucose 86 74-106 mg/dL Calcium Level 8.3 L 8.7-10.4 mg/dL Magnesium Level 2.0 1.6-2.6 mg/dL Total Bilirubin 0.4 0.2-1.0 mg/dL Aspartate Amino Transferase (AST) 10 L 13-40 U/L Alanine Aminotransferase (ALT) 10 7-40 U/L Alkaline Phosphatase 123 H 46-116 U/L Total Protein 5.7 5.7-8.2 g/dL Albumin 2.8 L 3.2-4.8 g/dL Vancomycin Level Trough 7.3 5-10 ug/mL Test 04/03/24 04:59 04/03/24 23:10 04/04/24 06:12 04/04/24 14:10 Range/Units White Blood Count 22.3 #H 17.8 H 13.9 H 4.4-10.8 10^3/uL Red Blood Count 2.65 L 2.51 L 3.44 L 4.0-5.20 10^6/uL Hemoglobin 7.3 #L 6.8 *L 9.8 #L 12.2-16.2 g/dL Hematocrit 22.4 #L 21.7 L 29.2 #L 36.0-46.0 % Mean Corpuscular Volume 84.6 86.7 85.0 80.0-100.0 fL Mean Corpuscular Hemoglobin 27.7 L 27.1 L 28.4 28.0-32.0 pg Mean Corpuscular Hemoglobin Concent 32.7 31.2 L 33.4 32.0-36.0 g/dL Red Cell Distribution Width 15.0 H 15.7 H 15.1 H 11.8-14.3 % Platelet Count 480 H 486 H 477 H 140-450 10^3/uL Mean Platelet Volume 5.8 L 6.0 L 6.1 L 6.9-10.8 fL Neutrophils (%) (Auto) 80.6 H 78.7 76.4 37.0-80.0 % Lymphocytes (%) (Auto) 12.2 15.2 17.7 10.0-50.0 % Monocytes (%) (Auto) 6.7 5.4 4.9 0.0-12.0 % Eosinophils (%) (Auto) 0.3 0.5 0.8 0.0-7.0 % Basophils (%) (Auto) 0.2 0.2 0.2 0.0-2.0 % Neutrophils # (Auto) 18.0 H 14.0 H 10.6 H 1.6-8.6 10 ^3/uL Lymphocytes # (Auto) 2.7 2.7 2.5 0.4-5.4 10 ^3/uL Monocytes # (Auto) 1.5 H 1.0 0.7 0-1.3 10 ^3/uL Eosinophils # (Auto) 0.1 0.1 0.1 0-0.8 10 ^3/uL Basophils # (Auto) 0 0 0 0-0.2 10 ^3/uL Nucleated Red Blood Cells 0.0 0.1 0.0 % Sodium Level 139 138 140 136-145 mmol/L Potassium Level 3.5 3.6 3.7 3.5-5.1 mmol/L Chloride Level 109 H 110 H 108 H 98-107 mmol/L Carbon Dioxide Level 23 22 24 20-31 mmol/L Anion Gap 7 6 8 5-15 Blood Urea Nitrogen < 5 L < 5 L 6 L 9-23 mg/dL Creatinine 0.60 0.54 L 0.46 L 0.550-1.02 mg/dL Glomerular Filtration Rate Calc 124 127 132 >90 mL/min BUN/Creatinine Ratio 8.3 L 9.3 L 13.0 10.0-20.0 Serum Glucose 96 88 89 74-106 mg/dL Calcium Level 7.9 L 7.8 L 7.9 L 8.7-10.4 mg/dL Phosphorus Level 2.8 2.4-5.1 mg/dL Magnesium Level 2.0 1.6-2.6 mg/dL Total Bilirubin 0.2 0.2-1.0 mg/dL Aspartate Amino Transferase (AST) 16 13-40 U/L Alanine Aminotransferase (ALT) 10 7-40 U/L Alkaline Phosphatase 107 46-116 U/L Total Protein 5.2 L 5.7-8.2 g/dL Albumin 2.6 L 3.2-4.8 g/dL Vancomycin Level Trough 11.4 H 5-10 ug/mL Test 04/05/24 05:29 04/05/24 12:21 Range/Units Sodium Level 141 136-145 mmol/L Potassium Level 3.4 L 3.5-5.1 mmol/L Chloride Level 109 H 98-107 mmol/L Carbon Dioxide Level 24 20-31 mmol/L Anion Gap 8 5-15 Blood Urea Nitrogen < 5 L 9-23 mg/dL Creatinine 0.50 L 0.550-1.02 mg/dL Glomerular Filtration Rate Calc 129 >90 mL/min BUN/Creatinine Ratio 10.0 10.0-20.0 Serum Glucose 90 74-106 mg/dL Calcium Level 8.3 L 8.7-10.4 mg/dL Vancomycin Level Trough 13.7 H 5-10 ug/mL Assessment and Plan ASSESSMENT AND PLAN Assessment and Plan 1. Abd wall and Pelvic Abscess, improving s/p IR drainage 2. s/p C/Section and BTL 3. Vulvar edema (fluid 3rd spacing) Plan D/C planning with PO Antibiotics , await ID recommendations Send home w/ drains and we will remove in 1 week in office PO Lasix x 3-5 days for vulvar edema. Hep LOCK all IV fluids F/U outpatient [facility] My orders: Orders - BETHANIE LOPEZ DO * Radiologist Consult (04/01/24 09:20) * Surgical Consult (04/01/24 ) Plan discussed with: Patient Date of Service: Apr 06, 2024 Billing Provider: BETHANIE LOPEZ DO Common Visit Codes: [id number] INP/OBS CARE(MOD) BETHANIE LOPEZ DO Apr 06, 2024 10:18
--- NOTE | 2024-04-06 11:34 | DVHPN2 ---
Subjective The patient seen and examined at bedside. The patient complains of left major labia pain and swollen but improved after ice pack Reviewed: Care Plan, H&P Changes from previous H/P or p: No Changes Eyes: No Pain, No Vision change, No Conjunctivae inflammation, No Eyelid inflammation, No Other, No Redness ENT: No Ear pain, No Ear discharge, No Nose pain, No Nose discharge, No Nose congestion, No Mouth pain, No Mouth swelling, No Throat pain, No Throat swelling, No Other Cardiovascular: No Chest Pain, No Palpitations, No Orthopnea, No Paroxysmal Noc. Dyspnea, No Edema, No Lt Headedness, No Other Respiratory: No Cough, No Dry, No Shortness of breath, No SOB with excertion, No Wheezing, No Hemoptysis, No Pleuritic Pain, No Sputum, No Other Gastrointestinal: Nausea, Vomiting, Abdominal Pain, Diarrhea; No Constipation, No Melena, No Hematochezia, No Other Genitourinary: No Dysuria, No Frequency, No Incontinence, No Hematuria, No Retention, No Other Musculoskeletal: No other, No neck pain, No shoulder pain, No arm pain, No back pain, No hand pain, No leg pain, No foot pain Skin: No Rash, No Lesions, No Jaundice, No Bruising, No Other Objective Vitals Vital Signs Date Time Temp Pulse Resp B/P (MAP) Pulse Ox O2 Delivery O2 Flow Rate FiO2 04/06/24 08:55 98.2 71 17 124/79 (94) 96 98.2 04/06/24 07:30 Room Air* 0 21 Intake/Output Intake and Output 04/06/24 07:00 Intake Total 1625 ml Balance 1625 ml Intake Oral 925 ml IV Total 700 ml # Voids 5 # Bowel Movements 1 General Appearance: Alert, Oriented X3, Cooperative, No acute distress HEENT: Atraumatic, PERRLA, EOMI, Mucous membr. moist/pink Lungs: Clear to auscultation, Normal air movement Cardiovascular: Regular rate, Normal S1, Normal S2 Abdomen: Normal bowel sounds Medications Current Medications Medications Dose Ordered Sig/Johny Route Start Time Stop Time Status Last Admin Dose Admin Vancomycin HCl 0 ml @ 0 mls/hr UD IV 04/01/24 04:45 Ondansetron HCl 4 mg Q4HP PRN IV 04/01/24 04:45 04/05/24 04:31 4 MG Morphine Sulfate 2 mg Q4HPRN PRN IV 04/01/24 04:45 04/05/24 19:58 2 MG Nitroglycerin 0.4 mg Q5MINP PRN SL 04/01/24 04:45 Morphine Sulfate 2 mg Q30M PRN IV 04/01/24 04:45 Pantoprazole Sodium 40 mg DAILY IV 04/02/24 10:00 04/06/24 09:32 40 MG Piperacillin Sod/ Tazobactam Sod 100 ml @ 25 mls/hr Q6HR IV 04/01/24 12:00 UNV Piperacillin Sod/ Tazobactam Sod 100 ml @ 25 mls/hr Q8H IV 04/01/24 18:00 04/06/24 09:33 25 MLS/HR Diphenhydramine HCl 25 mg Q6HP PRN IV 04/01/24 17:00 Enoxaparin Sodium 40 mg DAILY SC 04/02/24 10:00 04/06/24 09:33 40 MG Vancomycin HCl 200 ml @ 200 mls/hr Q10H IV 04/03/24 01:00 04/06/24 08:32 200 MLS/HR Oxycodone/ Acetaminophen 1 tab Q6HP PRN PO 04/02/24 16:30 04/06/24 06:58 1 TAB Acetaminophen 650 mg Q8HPRN PRN PO 04/02/24 16:45 04/03/24 19:05 650 MG Sodium Chloride 60 ml Q8HR IV 04/04/24 00:00 Cancel Levetiracetam 750 mg BID PO 04/04/24 11:30 04/06/24 09:32 750 MG Furosemide 20 mg BIDD PO 04/06/24 18:00 Laboratory Results Laboratory Tests 04/05/24 05:29 Urinalysis Test 04/01/24 05:28 Urine Color Yellow (Yellow) Urine Clarity Clear (Clear) Urine pH 6.5 (5.0-9.0) Urine Specific [place] > 1.050 (1.001-1.035) Urine Protein 1+ (Negative) H Urine Ketones Negative (Negative) Urine Blood 2+ /uL (Negative) H Urine Nitrite Negative (Negative) Urine Bilirubin Negative (Negative) Urine Urobilinogen Normal mg/dL (Negative) Urine Leukocyte Esterase 2+ /uL (Negative) Urine RBC 17 /hpf (0 - 4) Urine WBC 31 /hpf (0 - 5) Urine Squamous Epithelial Cells Few /hpf (<5) Urine Bacteria Few /hpf (None Seen) H Urine Glucose Normal mg/dL (Normal) Microbiology Microbiology Date/Time Source Procedure Growth Status 04/03/24 10:20 Aspirate Gram Stain - Final Resulted 04/03/24 10:20 Aspirate Body Fluid Culture - Preliminary Resulted 04/02/24 19:58 Blood Blood Culture - Preliminary NO GROWTH AFTER 72 HOURS OF INCUBATION. Resulted 04/02/24 15:00 Urine - [place] Urine Culture - Final Complete 04/01/24 20:35 Nose MRSA Screen - Final Complete Labs and/or images reviewed: Labs reviewed by me Assessment/Plan Assessment/Plan # sepsis due to pelvic wall abscess and anterior wall abscess of the uterus IV fluids IV antibiotics, Vanco and Zosyn Blood culture Lactic acid levels Status post IR drainage. Waiting for culture. # pelvic wall abscess and anterior wall episode of the uterus -IV vancomycin plus Zosyn OBGYN consult Status post do drainage to the pelvic abscess. Patient now feel much better. # intractable nausea/vomiting in the setting of sepsis -IV ondansetron p.r.n. -continue clear liquid, advance as tolerated # intractable diarrhea in the setting of sepsis, improving -IV fluids -continue clear liquid diet, advance as tolerated Infectious disease consulted # epilepsy Continue home medication # history of rheumatoid arthritis Patient does not take any active medication We will monitor # recent history of OBGYN consult #Swollen of left major labia. Secondary to 3rd spacing. Recommend icepack to the area. Ob no further intervention Lines Midline DVT prophylaxis -Low dose Lovenox 40mg SC daily Continuing current management. Waiting for culture results from the abscess drainage. Antibiotic when discharge per ID recommendation. Discharge planning Plan discussed with: Patient Date of Service: Apr 06, 2024 Billing Provider: CECILIO MOISE MD Common Visit Codes: [id number] INP/OBS CARE(HIGH) CECILIO MOISE MD Apr 06, 2024 11:33
[2024-04-06 11:44] LABS: Basophils # (auto) 0 10 ^3/uL (0-0.2); Basophils % (auto) 0.4 % (0.0-2.0); Eosinophils # (auto) 0.3 10 ^3/uL (0-0.8); Eosinophils % (auto) 3.3 % (0.0-7.0); Hematocrit 29.4 % (36.0-46.0); Hemoglobin 9.8 g/dL (12.2-16.2); Lymphocytes # (auto) 2.3 10 ^3/uL (0.4-5.4); Lymphocytes % (auto) 24.6 % (10.0-50.0); Mean Corpuscular Hemoglobin 28.6 pg (28.0-32.0); Mean Corpuscular Hgb Conc. 33.2 g/dL (32.0-36.0); Monocytes # (auto) 0.7 10 ^3/uL (0-1.3); Monocytes % (auto) 7.7 % (0.0-12.0); Neutrophils # (auto) 6.1 10 ^3/uL (1.6-8.6); Nucleated Red Blood Cells % 0.2 %; Platelet Count (auto) 531 10^3/uL (140-450); Red Blood Cells 3.41 10^6/uL (4.0-5.20); Red Cell Distribution Width 15.1 % (11.8-14.3); White Blood Cell 9.5 10^3/uL (4.4-10.8)
[2024-04-06] MEDS: FUROSEMIDE 20 MG TAB PO SCH (17:22)
--- NOTE | 2024-04-06 21:09 | DVHPN2 ---
Progress Note - Dictate Date Seen: Apr 06, 2024 Medical Necessity Reason Pt with a Central, PICC or Fol: No The following are medically ne: Chavarria Catheter Reason for chavarria catheter: Strict I&O Subjective Patient seen and examined at bedside. Breathing on room air. Overnight events reviewed. vital signs Vital Sign Date Time Temp Pulse Resp B/P (MAP) Pulse Ox O2 Delivery O2 Flow Rate FiO2 04/06/24 21:00 98.9 74 18 115/72 (86) 95 98.9 04/06/24 07:30 Room Air* 0 21 Total Intake and Output 04/05/24 04/05/24 04/06/24 15:00 23:00 07:00 Intake Total 100 ml 625 ml 900 ml Balance 100 ml 625 ml 900 ml medications Current Medications Medications Dose Ordered Sig/Johny Route Start Time Stop Time Status Last Admin Dose Admin Vancomycin HCl 0 ml @ 0 mls/hr UD IV 04/01/24 04:45 Ondansetron HCl 4 mg Q4HP PRN IV 04/01/24 04:45 04/05/24 04:31 4 MG Morphine Sulfate 2 mg Q4HPRN PRN IV 04/01/24 04:45 04/05/24 19:58 2 MG Nitroglycerin 0.4 mg Q5MINP PRN SL 04/01/24 04:45 Morphine Sulfate 2 mg Q30M PRN IV 04/01/24 04:45 Pantoprazole Sodium 40 mg DAILY IV 04/02/24 10:00 04/06/24 09:32 40 MG Piperacillin Sod/ Tazobactam Sod 100 ml @ 25 mls/hr Q6HR IV 04/01/24 12:00 UNV Piperacillin Sod/ Tazobactam Sod 100 ml @ 25 mls/hr Q8H IV 04/01/24 18:00 04/06/24 18:19 25 MLS/HR Diphenhydramine HCl 25 mg Q6HP PRN IV 04/01/24 17:00 Enoxaparin Sodium 40 mg DAILY SC 04/02/24 10:00 04/06/24 09:33 40 MG Vancomycin HCl 200 ml @ 200 mls/hr Q10H IV 04/03/24 01:00 04/06/24 17:22 200 MLS/HR Oxycodone/ Acetaminophen 1 tab Q6HP PRN PO 04/02/24 16:30 04/06/24 17:02 1 TAB Acetaminophen 650 mg Q8HPRN PRN PO 04/02/24 16:45 04/03/24 19:05 650 MG Sodium Chloride 60 ml Q8HR IV 04/04/24 00:00 Cancel Levetiracetam 750 mg BID PO 04/04/24 11:30 04/06/24 09:32 750 MG Furosemide 20 mg BIDD PO 04/06/24 18:00 04/06/24 17:22 20 MG objective Gen.: Patient lying in bed in no apparent distress. Breathing on room air. Head: Normocephalic, atraumatic. Eyes: EOMI/PERRLA. Ears: Normal hearing. Normal anatomy. Neck/trachea: Trachea midline, supple. Nose: Normal external anatomy. Mouth: Moist mucous membranes. Chest: Decreased air entry bilaterally. No wheezing or rhonchi. Cardiovascular: Positive S1, positive S2. Regular rate and rhythm. Abdomen: Positive bowel sounds in all 4 quadrants. Soft, non-tender, non- distended. : Deferred. Rectal: Deferred. Skin: Warm, dry. Intact. Extremities: 2+ radial pulses bilaterally. No lower extremity edema. Neuro: Awake, alert, oriented x3. No gross motor or sensory deficits. Cranial nerves II through XII intact. Gait not assessed. laboratory and microbiology Laboratory Tests 04/06/24 11:15 04/05/24 05:29 Test 04/05/24 05:29 Range/Units Serum Glucose 90 74-106 mg/dL Assessment/Plan Impression: Dyspnea Diarrhea S/p section Abdominal abscess Hypokalemia Events: Breathing on room air No respiratory distress. Continue antibiotics IS. Follow up ID recommendations Wound care Pain control Avoid oversedation Monitor ABIOLA drain output Patient is stable for discharge from the pulmonary standpoint. Labs and imaging reviewed. Rest of plan as noted below. Plan: Supplemental oxygen PRN Titrate to keep O2 sats above 92%. Continue antibiotics - Zosyn, vancomycin. Incentive spirometry Pain control Avoid oversedation S/p placement of abdominal and pelvic drains by IR for drainage of abscess. Monitor renal function. Monitor electrolytes. Supplement as necessary. Monitor ins and outs. Potassium supplementation DVT prophylaxis. Prognosis: Poor given patient's multiple co-morbidities. Rest of plan per hospitalist and other consultants. Thank you Jovani Orona NP, for allowing me to participate in this patient's care. Further recommendations will depend on the patient's clinical course. Please do not hesitate to contact me if you have any questions or concerns. This medical document was created using an electronic medical record system with [employer] dictation system. Although these documentations are being carefully reviewed, there may still be some phonetic and typographical changes. The errors are purely typographical, due to imperfection on the software program, and do not reflect any compromise in the patient's medical care. Dietary Evaluation Review Comments: 1) Continue current plan of care Expected Outcomes/Goals: F/U in 3-5 days Plan discussed with: Patient, Other (VINCE Garland) CC Plasma Assessment Blood Product Administration S: [id number] AALIYAH CARVALHO MD Apr 06, 2024 21:09
--- NOTE | 2024-04-06 23:10 | DVHPN2 ---
Consult Progress Note Date Seen: Apr 06, 2024 Subjective Patient reports: Other (having bowel movements , tolerating diet , 200ccs of fluid thick coming out of drain cumulatively, superpubic area is still mildly distended) Objective vital signs Vital Sign Date Time Temp Pulse Resp B/P (MAP) Pulse Ox O2 Delivery O2 Flow Rate FiO2 04/06/24 21:00 98.9 74 18 115/72 (86) 95 98.9 04/06/24 20:00 Room Air* 0 21 Total Intake and Output 04/05/24 04/05/24 04/06/24 15:00 23:00 07:00 Intake Total 100 ml 625 ml 900 ml Balance 100 ml 625 ml 900 ml medications Current Medications Medications Dose Ordered Sig/Johny Route Start Time Stop Time Status Last Admin Dose Admin Vancomycin HCl 0 ml @ 0 mls/hr UD IV 04/01/24 04:45 Cancel Ondansetron HCl 4 mg Q4HP PRN IV 04/01/24 04:45 04/05/24 04:31 4 MG Morphine Sulfate 2 mg Q4HPRN PRN IV 04/01/24 04:45 04/05/24 19:58 2 MG Nitroglycerin 0.4 mg Q5MINP PRN SL 04/01/24 04:45 Morphine Sulfate 2 mg Q30M PRN IV 04/01/24 04:45 Pantoprazole Sodium 40 mg DAILY IV 04/02/24 10:00 04/06/24 09:32 40 MG Piperacillin Sod/ Tazobactam Sod 100 ml @ 25 mls/hr Q6HR IV 04/01/24 12:00 UNV Diphenhydramine HCl 25 mg Q6HP PRN IV 04/01/24 17:00 Enoxaparin Sodium 40 mg DAILY SC 04/02/24 10:00 04/06/24 09:33 40 MG Oxycodone/ Acetaminophen 1 tab Q6HP PRN PO 04/02/24 16:30 04/06/24 17:02 1 TAB Acetaminophen 650 mg Q8HPRN PRN PO 04/02/24 16:45 04/03/24 19:05 650 MG Sodium Chloride 60 ml Q8HR IV 04/04/24 00:00 Cancel Levetiracetam 750 mg BID PO 04/04/24 11:30 04/06/24 22:23 750 MG Furosemide 20 mg BIDD PO 04/06/24 18:00 04/06/24 17:22 20 MG Clindamycin HCl 450 mg Q8HR PO 04/07/24 06:00 Ceftriaxone Sodium/Dextrose 50 ml @ 50 mls/hr DAILY IV 04/07/24 10:00 Physical Exam: General: NAD Neck: Supple. No masses. HEENT: PERRL. Normal lids and conjunctiva. Moist mucous membranes. Oropharynx without lesions, exudates, or excessive erythema. Normal appearance of the external aspects of the nose and ears. Heart: Regular rhythm, tachycardic. No murmur. No lower extremity edema. Lungs: Diminished breath sounds at bases bilaterally. Shortness of breath noted. Abdomen: Distended. Tenderness in suprapubic area. No masses or abdominal hernia. Msk: No digital cyanosis. Normal strength and tone in all 4 limbs. Skin: Warm and dry. Erythema with induration at the base of the surgical incision; no drainage observed. Neuro: Alert. No facial droop or slurred speech. Extra-ocular movements intact. Sensation intact to soft touch in all 4 limbs. Psych: Appropriate mood. Full affect. laboratory and microbiology Laboratory Tests 04/06/24 11:15 04/05/24 05:29 Test 04/05/24 05:29 Range/Units Serum Glucose 90 74-106 mg/dL Problem List/Assessment/Plan Problems(with codes): (1) Rheumatoid arthritis (2) Epilepsy (3) Nausea and vomiting during (4) Pelvic pain during (5) Leukocytes in urine (6) Generalized abdominal pain (7) Thrombocytosis (8) Leukocytosis, unspecified (9) Hypokalemia (10) Abdominal pain (11) Abdominal abscess Problem List/Assessment/Plan ID Problem List: - status - Postoperative surgical site complications - Anterior pelvic wall abscess - Uterine wall abscess - Leukocytosis - Thrombocytosis - Tachycardia - Shortness of breath Assessment: This is a 28 y.o. female, , with a past medical history of cholecystectomy, who presents with one week of nausea, fevers, chills, abdominal pain over the C- section suture line, and induration and swelling at the surgical site. Patient underwent section and tubal ligation on March 16 with a normal recovery until she developed the aforementioned symptoms. Physical exam is significant for a distended abdomen, tenderness in the suprapubic area, tachycardia, shortness of breath, diminished breath sounds at lung bases, and erythema with induration of the surgical site without drainage. Laboratory data reveals leukocytosis (WBC 23.7), thrombocytosis (platelet count 697), and a lactic acid level of 1.3. Blood cultures are no growth to date. MRSA nasal swab is negative. Urine culture is no growth to date. Imaging studies include a CT abdomen and pelvis revealing a large anterior pelvic wall abscess measuring approximately 13.5 x 9.3 x 10.5 cm with an air- fluid level extending into the pelvic cavity anterior to the urinary bladder. An additional hypodense collection within the anterior wall of the uterus communicates with the pelvic wall abscess and the endometrial canal. Other findings include fat stranding and air foci in the anterior pelvic wall soft tissues. The patient underwent CT-guided drainage with placement of an 8.5 Portuguese drain in the pelvic abscess and an 8 Portuguese drain in the abdominal abscess. Approximately 550 cc of thick purulent fluid were aspirated and drained. Preliminary cultures from the abscess fluid show Bacillus non-anthracis species; however, samples were obtained after initiation of broad-spectrum antibiotics. The patient has been on vancomycin and Zosyn since admission with an improving white count. She is tolerating diet. 04/06: white count is down to 9.5 Plan: - recommend prolonged course of oral antibiotics , since abscess is quite large recommend monitoring patient on oral antibiotics for 1-2 days to make sure of improvement - patient goes home with at least 30 days of oral antibiotics followed by CT abd pelvis - follow up with infectious diease in 30 days - follow up with gynecology - if abscess persists after 30 days will need to be considered for surgery - recommend additional drain management by gynecology - follow up on aspirated cultures - stop vancomycin and ZOsyn - start oral clindamycin 450 milligrams every 8 hours and ceftriaxone IV 2 grams daily, both are compatible with - monitor for clinical improvement - Monitor drainage output from ABIOLA drains and assess clinical signs of infection. Plan discussed with: Other Dietary Evaluation Review Comments: 1) Continue current plan of care Expected Outcomes/Goals: F/U in 3-5 days CC Plasma Assessment Blood Product Administration S: [id number] BEN ROBLES MD Apr 06, 2024 23:10
[2024-04-07] VITALS (8 sets, daily range): BP systolic 108–129; BP diastolic 65–83; PULSE 62–71; RESP 16–18; TEMP 97.7–99.1; O2SAT 94–99
[2024-04-07] MEDS: CLINDAMYCIN HCL 150 MG CAP PO SCH (05:57)
[2024-04-07] MEDS: cefTRIAXone 2GM/50ML D5W 50 ML IV SCH (09:29)
--- NOTE | 2024-04-07 09:32 | DVHPN2 ---
Subjective Progress Notes Subjective Patient doing better. Denies fever/ chills. Tolerating regular diet Abdominal discomfort improving. Objective PHYSICAL EXAM Physical Exam: Alert, NAD Abd. Not distended, tenderness mild to moderate over incision Drains in place ext neg ladan sign vulvar edema improving Vital Signs and I&O Vital Signs Date Time Temp Pulse Resp B/P (MAP) Pulse Ox O2 Delivery O2 Flow Rate FiO2 04/07/24 17:17 97.7 70 16 123/83 (96) 96 97.7 04/07/24 08:00 Room Air* 0 21 Intake and Output 04/07/24 07:00 Intake Total 1990 ml Balance 1990 ml Intake Oral 1150 ml IV Total 840 ml # Voids 5 # Bowel Movements 2 Lab results Laboratory Tests Test 04/01/24 00:50 04/01/24 03:15 04/01/24 05:02 04/01/24 05:28 Range/Units White Blood Count 23.7 H 22.0 H 4.4-10.8 10^3/uL Red Blood Count 3.71 L 3.55 L 4.0-5.20 10^6/uL Hemoglobin 10.3 L 10.0 L 12.2-16.2 g/dL Hematocrit 30.9 L 29.8 L 36.0-46.0 % Mean Corpuscular Volume 83.4 84.0 80.0-100.0 fL Mean Corpuscular Hemoglobin 27.9 L 28.3 28.0-32.0 pg Mean Corpuscular Hemoglobin Concent 33.5 33.7 32.0-36.0 g/dL Red Cell Distribution Width 14.9 H 15.2 H 11.8-14.3 % Platelet Count 697 H 610 H 140-450 10^3/uL Mean Platelet Volume 6.0 L 6.0 L 6.9-10.8 fL Neutrophils (%) (Auto) 87.8 H 83.5 H 37.0-80.0 % Lymphocytes (%) (Auto) 5.9 L 10.7 10.0-50.0 % Monocytes (%) (Auto) 6.2 5.4 0.0-12.0 % Eosinophils (%) (Auto) 0.0 0.1 0.0-7.0 % Basophils (%) (Auto) 0.1 0.3 0.0-2.0 % Neutrophils # (Auto) 20.8 H 18.4 H 1.6-8.6 10 ^3/uL Lymphocytes # (Auto) 1.4 2.4 0.4-5.4 10 ^3/uL Monocytes # (Auto) 1.5 H 1.2 0-1.3 10 ^3/uL Eosinophils # (Auto) 0 0 0-0.8 10 ^3/uL Basophils # (Auto) 0 0.1 0-0.2 10 ^3/uL Nucleated Red Blood Cells 0.0 0.2 % Sodium Level 144 144 136-145 mmol/L Potassium Level 2.6 L 3.1 L 3.5-5.1 mmol/L Chloride Level 109 H 112 H 98-107 mmol/L Carbon Dioxide Level 23 19 L 20-31 mmol/L Anion Gap 12 13 5-15 Blood Urea Nitrogen 18 16 9-23 mg/dL Creatinine 0.98 0.82 0.550-1.02 mg/dL Glomerular Filtration Rate Calc 80 99 >90 mL/min BUN/Creatinine Ratio 18.4 19.5 10.0-20.0 Serum Glucose 108 H 102 74-106 mg/dL Calcium Level 9.2 8.6 L 8.7-10.4 mg/dL Total Bilirubin 0.4 0.3 0.2-1.0 mg/dL Aspartate Amino Transferase (AST) 14 12 L 13-40 U/L Alanine Aminotransferase (ALT) 12 9 7-40 U/L Alkaline Phosphatase 154 H 137 H 46-116 U/L Total Protein 7.2 6.6 5.7-8.2 g/dL Albumin 3.8 3.4 3.2-4.8 g/dL Lactic Acid Level 1.3 0.4-2.0 mmol/L Urine Color Yellow Yellow Urine Clarity Clear Clear Urine pH 6.5 5.0-9.0 Urine Specific [place] > 1.050 H 1.001-1.035 Urine Protein 1+ H Negative Urine Ketones Negative Negative Urine Blood 2+ H Negative /uL Urine Nitrite Negative Negative Urine Bilirubin Negative Negative Urine Urobilinogen Normal Negative mg/dL Urine Leukocyte Esterase 2+ Negative /uL Urine RBC 17 0 - 4 /hpf Urine WBC 31 0 - 5 /hpf Urine Squamous Epithelial Cells Few <5 /hpf Urine Bacteria Few H None Seen /hpf Urine Glucose Normal Normal mg/dL Urine Opiates Screen Neg NEGATIVE Urine Fentanyl Screen Neg NEGATIVE Urine Barbiturates Screen Neg NEGATIVE Urine Phencyclidine Screen Neg NEGATIVE Urine Amphetamines Screen Neg NEGATIVE Urine Benzodiazepines Screen Neg NEGATIVE Urine Cocaine Screen Neg NEGATIVE Urine Cannabinoids Screen Neg NEGATIVE Test 04/01/24 09:36 04/02/24 05:02 04/02/24 14:00 04/02/24 19:58 Range/Units Prothrombin Time 13.6 H 13.4 H 9.3-11.8 sec Prothrombin Time INR 1.31 H 1.29 H 0.9-1.15 Activated Partial Thromboplast Time 37.3 H 35.2 H 24.5-34.5 SEC Lactic Acid Level 1.0 0.4-2.0 mmol/L White Blood Count 16.3 #H 4.4-10.8 10^3/uL Red Blood Count 3.30 L 4.0-5.20 10^6/uL Hemoglobin 9.1 L 12.2-16.2 g/dL Hematocrit 27.7 L 36.0-46.0 % Mean Corpuscular Volume 83.8 80.0-100.0 fL Mean Corpuscular Hemoglobin 27.4 L 28.0-32.0 pg Mean Corpuscular Hemoglobin Concent 32.7 32.0-36.0 g/dL Red Cell Distribution Width 14.6 H 11.8-14.3 % Platelet Count 564 H 140-450 10^3/uL Mean Platelet Volume 6.0 L 6.9-10.8 fL Neutrophils (%) (Auto) 80.3 H 37.0-80.0 % Lymphocytes (%) (Auto) 13.9 10.0-50.0 % Monocytes (%) (Auto) 5.2 0.0-12.0 % Eosinophils (%) (Auto) 0.2 0.0-7.0 % Basophils (%) (Auto) 0.4 0.0-2.0 % Neutrophils # (Auto) 13.1 H 1.6-8.6 10 ^3/uL Lymphocytes # (Auto) 2.3 0.4-5.4 10 ^3/uL Monocytes # (Auto) 0.8 0-1.3 10 ^3/uL Eosinophils # (Auto) 0 0-0.8 10 ^3/uL Basophils # (Auto) 0.1 0-0.2 10 ^3/uL Nucleated Red Blood Cells 0.1 % Sodium Level 140 136-145 mmol/L Potassium Level 2.8 L 3.5-5.1 mmol/L Chloride Level 109 H 98-107 mmol/L Carbon Dioxide Level 21 20-31 mmol/L Anion Gap 10 5-15 Blood Urea Nitrogen 8 L 9-23 mg/dL Creatinine 0.76 0.550-1.02 mg/dL Glomerular Filtration Rate Calc 108 >90 mL/min BUN/Creatinine Ratio 10.5 10.0-20.0 Serum Glucose 86 74-106 mg/dL Calcium Level 8.3 L 8.7-10.4 mg/dL Magnesium Level 2.0 1.6-2.6 mg/dL Total Bilirubin 0.4 0.2-1.0 mg/dL Aspartate Amino Transferase (AST) 10 L 13-40 U/L Alanine Aminotransferase (ALT) 10 7-40 U/L Alkaline Phosphatase 123 H 46-116 U/L Total Protein 5.7 5.7-8.2 g/dL Albumin 2.8 L 3.2-4.8 g/dL Vancomycin Level Trough 7.3 5-10 ug/mL Test 04/03/24 04:59 04/03/24 23:10 04/04/24 06:12 04/04/24 14:10 Range/Units White Blood Count 22.3 #H 17.8 H 13.9 H 4.4-10.8 10^3/uL Red Blood Count 2.65 L 2.51 L 3.44 L 4.0-5.20 10^6/uL Hemoglobin 7.3 #L 6.8 *L 9.8 #L 12.2-16.2 g/dL Hematocrit 22.4 #L 21.7 L 29.2 #L 36.0-46.0 % Mean Corpuscular Volume 84.6 86.7 85.0 80.0-100.0 fL Mean Corpuscular Hemoglobin 27.7 L 27.1 L 28.4 28.0-32.0 pg Mean Corpuscular Hemoglobin Concent 32.7 31.2 L 33.4 32.0-36.0 g/dL Red Cell Distribution Width 15.0 H 15.7 H 15.1 H 11.8-14.3 % Platelet Count 480 H 486 H 477 H 140-450 10^3/uL Mean Platelet Volume 5.8 L 6.0 L 6.1 L 6.9-10.8 fL Neutrophils (%) (Auto) 80.6 H 78.7 76.4 37.0-80.0 % Lymphocytes (%) (Auto) 12.2 15.2 17.7 10.0-50.0 % Monocytes (%) (Auto) 6.7 5.4 4.9 0.0-12.0 % Eosinophils (%) (Auto) 0.3 0.5 0.8 0.0-7.0 % Basophils (%) (Auto) 0.2 0.2 0.2 0.0-2.0 % Neutrophils # (Auto) 18.0 H 14.0 H 10.6 H 1.6-8.6 10 ^3/uL Lymphocytes # (Auto) 2.7 2.7 2.5 0.4-5.4 10 ^3/uL Monocytes # (Auto) 1.5 H 1.0 0.7 0-1.3 10 ^3/uL Eosinophils # (Auto) 0.1 0.1 0.1 0-0.8 10 ^3/uL Basophils # (Auto) 0 0 0 0-0.2 10 ^3/uL Nucleated Red Blood Cells 0.0 0.1 0.0 % Sodium Level 139 138 140 136-145 mmol/L Potassium Level 3.5 3.6 3.7 3.5-5.1 mmol/L Chloride Level 109 H 110 H 108 H 98-107 mmol/L Carbon Dioxide Level 23 22 24 20-31 mmol/L Anion Gap 7 6 8 5-15 Blood Urea Nitrogen < 5 L < 5 L 6 L 9-23 mg/dL Creatinine 0.60 0.54 L 0.46 L 0.550-1.02 mg/dL Glomerular Filtration Rate Calc 124 127 132 >90 mL/min BUN/Creatinine Ratio 8.3 L 9.3 L 13.0 10.0-20.0 Serum Glucose 96 88 89 74-106 mg/dL Calcium Level 7.9 L 7.8 L 7.9 L 8.7-10.4 mg/dL Phosphorus Level 2.8 2.4-5.1 mg/dL Magnesium Level 2.0 1.6-2.6 mg/dL Total Bilirubin 0.2 0.2-1.0 mg/dL Aspartate Amino Transferase (AST) 16 13-40 U/L Alanine Aminotransferase (ALT) 10 7-40 U/L Alkaline Phosphatase 107 46-116 U/L Total Protein 5.2 L 5.7-8.2 g/dL Albumin 2.6 L 3.2-4.8 g/dL Vancomycin Level Trough 11.4 H 5-10 ug/mL Test 04/05/24 05:29 04/05/24 12:21 04/06/24 11:15 Range/Units Sodium Level 141 136-145 mmol/L Potassium Level 3.4 L 3.5-5.1 mmol/L Chloride Level 109 H 98-107 mmol/L Carbon Dioxide Level 24 20-31 mmol/L Anion Gap 8 5-15 Blood Urea Nitrogen < 5 L 9-23 mg/dL Creatinine 0.50 L 0.550-1.02 mg/dL Glomerular Filtration Rate Calc 129 >90 mL/min BUN/Creatinine Ratio 10.0 10.0-20.0 Serum Glucose 90 74-106 mg/dL Calcium Level 8.3 L 8.7-10.4 mg/dL Vancomycin Level Trough 13.7 H 5-10 ug/mL White Blood Count 9.5 # 4.4-10.8 10^3/uL Red Blood Count 3.41 L 4.0-5.20 10^6/uL Hemoglobin 9.8 L 12.2-16.2 g/dL Hematocrit 29.4 L 36.0-46.0 % Mean Corpuscular Volume 86.0 80.0-100.0 fL Mean Corpuscular Hemoglobin 28.6 28.0-32.0 pg Mean Corpuscular Hemoglobin Concent 33.2 32.0-36.0 g/dL Red Cell Distribution Width 15.1 H 11.8-14.3 % Platelet Count 531 H 140-450 10^3/uL Mean Platelet Volume 5.8 L 6.9-10.8 fL Neutrophils (%) (Auto) 64.0 37.0-80.0 % Lymphocytes (%) (Auto) 24.6 10.0-50.0 % Monocytes (%) (Auto) 7.7 0.0-12.0 % Eosinophils (%) (Auto) 3.3 0.0-7.0 % Basophils (%) (Auto) 0.4 0.0-2.0 % Neutrophils # (Auto) 6.1 1.6-8.6 10 ^3/uL Lymphocytes # (Auto) 2.3 0.4-5.4 10 ^3/uL Monocytes # (Auto) 0.7 0-1.3 10 ^3/uL Eosinophils # (Auto) 0.3 0-0.8 10 ^3/uL Basophils # (Auto) 0 0-0.2 10 ^3/uL Nucleated Red Blood Cells 0.2 % Assessment and Plan ASSESSMENT AND PLAN Assessment and Plan Abd wall and pelvic abscess s/p IR drainage vulvar edemam , improving Plan OK 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
--- NOTE | 2024-04-07 11:12 | DVHPN2 ---
Subjective The patient seen and examined at bedside. The patient feel better today. The pain in her major labia improved with ice Reviewed: Care Plan, H&P Changes from previous H/P or p: No Changes Eyes: No Pain, No Vision change, No Conjunctivae inflammation, No Eyelid inflammation, No Other, No Redness ENT: No Ear pain, No Ear discharge, No Nose pain, No Nose discharge, No Nose congestion, No Mouth pain, No Mouth swelling, No Throat pain, No Throat swelling, No Other Cardiovascular: No Chest Pain, No Palpitations, No Orthopnea, No Paroxysmal Noc. Dyspnea, No Edema, No Lt Headedness, No Other Respiratory: No Cough, No Dry, No Shortness of breath, No SOB with excertion, No Wheezing, No Hemoptysis, No Pleuritic Pain, No Sputum, No Other Gastrointestinal: Nausea, Vomiting, Abdominal Pain, Diarrhea Genitourinary: No Dysuria, No Frequency, No Incontinence, No Hematuria, No Retention, No Other Musculoskeletal: No other, No neck pain, No shoulder pain, No arm pain, No back pain, No hand pain, No leg pain, No foot pain Skin: No Rash, No Lesions, No Jaundice, No Bruising, No Other Objective Vitals Vital Signs Date Time Temp Pulse Resp B/P (MAP) Pulse Ox O2 Delivery O2 Flow Rate FiO2 04/07/24 08:52 98.4 62 16 111/68 (82) 95 98.4 04/07/24 08:00 Room Air* 0 21 Intake/Output Intake and Output 04/07/24 07:00 Intake Total 1990 ml Balance 1990 ml Intake Oral 1150 ml IV Total 840 ml # Voids 5 # Bowel Movements 2 General Appearance: Alert, Oriented X3, Cooperative, No acute distress HEENT: Atraumatic, PERRLA, EOMI, Mucous membr. 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 on the left side swollen) Neuro: Cranial nerves 3-12 NL Medications Current Medications Medications Dose Ordered Sig/Johny Route Start Time Stop Time Status Last Admin Dose Admin Vancomycin HCl 0 ml @ 0 mls/hr UD IV 04/01/24 04:45 Cancel Ondansetron HCl 4 mg Q4HP PRN IV 04/01/24 04:45 04/05/24 04:31 4 MG Morphine Sulfate 2 mg Q4HPRN PRN IV 04/01/24 04:45 04/05/24 19:58 2 MG Nitroglycerin 0.4 mg Q5MINP PRN SL 04/01/24 04:45 Morphine Sulfate 2 mg Q30M PRN IV 04/01/24 04:45 Pantoprazole Sodium 40 mg DAILY IV 04/02/24 10:00 04/07/24 09:30 40 MG Piperacillin Sod/ Tazobactam Sod 100 ml @ 25 mls/hr Q6HR IV 04/01/24 12:00 UNV Diphenhydramine HCl 25 mg Q6HP PRN IV 04/01/24 17:00 Enoxaparin Sodium 40 mg DAILY SC 04/02/24 10:00 04/07/24 09:25 40 MG Oxycodone/ Acetaminophen 1 tab Q6HP PRN PO 04/02/24 16:30 04/07/24 06:02 1 TAB Acetaminophen 650 mg Q8HPRN PRN PO 04/02/24 16:45 04/03/24 19:05 650 MG Sodium Chloride 60 ml Q8HR IV 04/04/24 00:00 Cancel Levetiracetam 750 mg BID PO 04/04/24 11:30 04/07/24 09:24 750 MG Furosemide 20 mg BIDD PO 04/06/24 18:00 04/07/24 05:58 20 MG Clindamycin HCl 450 mg Q8HR PO 04/07/24 06:00 04/07/24 05:57 450 MG Ceftriaxone Sodium/Dextrose 50 ml @ 50 mls/hr DAILY IV 04/07/24 10:00 04/07/24 09:29 50 MLS/HR Laboratory Results Laboratory Tests 04/05/24 05:29 04/06/24 11:15 Urinalysis Test 04/01/24 05:28 Urine Color Yellow (Yellow) Urine Clarity Clear (Clear) Urine pH 6.5 (5.0-9.0) Urine Specific [place] > 1.050 (1.001-1.035) Urine Protein 1+ (Negative) H Urine Ketones Negative (Negative) Urine Blood 2+ /uL (Negative) H Urine Nitrite Negative (Negative) Urine Bilirubin Negative (Negative) Urine Urobilinogen Normal mg/dL (Negative) Urine Leukocyte Esterase 2+ /uL (Negative) Urine RBC 17 /hpf (0 - 4) Urine WBC 31 /hpf (0 - 5) Urine Squamous Epithelial Cells Few /hpf (<5) Urine Bacteria Few /hpf (None Seen) H Urine Glucose Normal mg/dL (Normal) Microbiology Microbiology Date/Time Source Procedure Growth Status 04/03/24 10:20 Aspirate Gram Stain - Final Resulted 04/03/24 10:20 Aspirate Body Fluid Culture - Preliminary Resulted 04/02/24 19:58 Blood Blood Culture - Preliminary NO GROWTH AFTER 72 HOURS OF INCUBATION. Resulted 04/02/24 15:00 Urine - [place] Urine Culture - Final Complete 04/01/24 20:35 Nose MRSA Screen - Final Complete Labs and/or images reviewed: Labs reviewed by me Assessment/Plan Assessment/Plan # sepsis due to pelvic wall abscess and anterior wall abscess of the uterus IV fluids IV antibiotics, Vanco and Zosyn Blood culture Lactic acid levels Status post IR drainage. Waiting for culture. # pelvic wall abscess and anterior wall episode of the uterus -IV vancomycin plus Zosyn OBGYN consult Status post do drainage to the pelvic abscess. Patient now feel much better. # intractable nausea/vomiting in the setting of sepsis -IV ondansetron p.r.n. -continue clear liquid, advance as tolerated # intractable diarrhea in the setting of sepsis, improving -IV fluids -continue clear liquid diet, advance as tolerated Major labia swollen secondary to edema, no abscess per OBGYN Plan: Continuing current management. Waiting for culture of the abscess. Appreciate Infectious Disease input. Patient will be discharge home with oral antibiotic when culture available per ID # epilepsy Continue home medication # history of rheumatoid arthritis Patient does not take any active medication We will monitor # recent history of OBGYN consult #Swollen of left major labia. Secondary to 3rd spacing. Recommend icepack to the area. Ob no further intervention Lines Midline DVT prophylaxis -Low dose Lovenox 40mg SC daily Continuing current management. Waiting for culture results from the abscess drainage. Antibiotic when discharge per ID recommendation. Discharge planning Plan discussed with: Patient Date of Service: Apr 07, 2024 Billing Provider: CECILIO MOISE MD Common Visit Codes: [id number] INP/OBS CARE(HIGH) CECILIO MOISE MD Apr 07, 2024 11:12
--- NOTE | 2024-04-07 21:02 | DVHPN2 ---
Progress Note - Dictate Date Seen: Apr 07, 2024 Medical Necessity Reason Pt with a Central, PICC or Fol: No The following are medically ne: Chavarria Catheter Reason for chavarria catheter: Strict I&O Subjective Patient seen and examined at bedside. Breathing on room air. Overnight events reviewed. vital signs Vital Sign Date Time Temp Pulse Resp B/P (MAP) Pulse Ox O2 Delivery O2 Flow Rate FiO2 04/07/24 18:00 123/83 04/07/24 17:17 97.7 70 16 96 97.7 04/07/24 08:00 Room Air* 0 21 Total Intake and Output 04/06/24 04/06/24 04/07/24 15:00 23:00 07:00 Intake Total 540 ml 800 ml 650 ml Balance 540 ml 800 ml 650 ml medications Current Medications Medications Dose Ordered Sig/Johny Route Start Time Stop Time Status Last Admin Dose Admin Vancomycin HCl 0 ml @ 0 mls/hr UD IV 04/01/24 04:45 Cancel Ondansetron HCl 4 mg Q4HP PRN IV 04/01/24 04:45 04/05/24 04:31 4 MG Morphine Sulfate 2 mg Q4HPRN PRN IV 04/01/24 04:45 04/05/24 19:58 2 MG Nitroglycerin 0.4 mg Q5MINP PRN SL 04/01/24 04:45 Morphine Sulfate 2 mg Q30M PRN IV 04/01/24 04:45 Pantoprazole Sodium 40 mg DAILY IV 04/02/24 10:00 04/07/24 09:30 40 MG Piperacillin Sod/ Tazobactam Sod 100 ml @ 25 mls/hr Q6HR IV 04/01/24 12:00 UNV Diphenhydramine HCl 25 mg Q6HP PRN IV 04/01/24 17:00 Enoxaparin Sodium 40 mg DAILY SC 04/02/24 10:00 04/07/24 09:25 40 MG Oxycodone/ Acetaminophen 1 tab Q6HP PRN PO 04/02/24 16:30 04/07/24 14:25 1 TAB Acetaminophen 650 mg Q8HPRN PRN PO 04/02/24 16:45 04/03/24 19:05 650 MG Sodium Chloride 60 ml Q8HR IV 04/04/24 00:00 Cancel Levetiracetam 750 mg BID PO 04/04/24 11:30 04/07/24 09:24 750 MG Furosemide 20 mg BIDD PO 04/06/24 18:00 04/07/24 05:58 20 MG Clindamycin HCl 450 mg Q8HR PO 04/07/24 06:00 04/07/24 14:16 450 MG Ceftriaxone Sodium/Dextrose 50 ml @ 50 mls/hr DAILY IV 04/07/24 10:00 04/07/24 09:29 50 MLS/HR objective Gen.: Patient lying in bed in no apparent distress. Breathing on room air. Head: Normocephalic, atraumatic. Eyes: EOMI/PERRLA. Ears: Normal hearing. Normal anatomy. Neck/trachea: Trachea midline, supple. Nose: Normal external anatomy. Mouth: Moist mucous membranes. Chest: Decreased air entry bilaterally. No wheezing or rhonchi. Cardiovascular: Positive S1, positive S2. Regular rate and rhythm. Abdomen: Positive bowel sounds in all 4 quadrants. Soft, non-tender, non- distended. : Deferred. Rectal: Deferred. Skin: Warm, dry. Intact. Extremities: 2+ radial pulses bilaterally. No lower extremity edema. Neuro: Awake, alert, oriented x3. No gross motor or sensory deficits. Cranial nerves II through XII intact. Gait not assessed. laboratory and microbiology Laboratory Tests 04/06/24 11:15 04/05/24 05:29 Test 04/05/24 05:29 Range/Units Serum Glucose 90 74-106 mg/dL Assessment/Plan Impression: Dyspnea Diarrhea S/p section Abdominal abscess Hypokalemia Events: Breathing on room air No respiratory distress. Continue antibiotics Incentive spirometry ID recommendations appreciated. Wound care Pain control Avoid oversedation Monitor ABIOLA drain output Patient is stable for discharge from the pulmonary standpoint. Labs and imaging reviewed. Rest of plan as noted below. Plan: Supplemental oxygen PRN Titrate to keep O2 sats above 92%. Continue antibiotics - ceftriaxone, clindamycin. Incentive spirometry Pain control Avoid oversedation S/p placement of abdominal and pelvic drains by IR for drainage of abscess. Monitor renal function. Monitor electrolytes. Supplement as necessary. Monitor ins and outs. Potassium supplementation DVT prophylaxis. Prognosis: Poor given patient's multiple co-morbidities. Rest of plan per hospitalist and other consultants. Thank you Jovani Orona NP, for allowing me to participate in this patient's care. Further recommendations will depend on the patient's clinical course. Please do not hesitate to contact me if you have any questions or concerns. This medical document was created using an electronic medical record system with [employer] dictation system. Although these documentations are being carefully reviewed, there may still be some phonetic and typographical changes. The errors are purely typographical, due to imperfection on the software program, and do not reflect any compromise in the patient's medical care. Dietary Evaluation Review Comments: 1) Continue current plan of care Expected Outcomes/Goals: F/U in 3-5 days Plan discussed with: Patient, Other (VINCE Mccollum) CC Plasma Assessment Blood Product Administration S: [id number] AALIYAH CARVALHO MD Apr 07, 2024 21:02
[2024-04-07] MEDS ORDERED: CEFPODOXIME PROXETIL 200 MG TAB PO SCH (22:00)
--- NOTE | 2024-04-07 22:11 | DVHPN2 ---
Consult Progress Note Date Seen: Apr 07, 2024 Subjective Patient reports: Feels better (feeling better and tolerating diet, occasionally having episodes of tachycardia and palpatations , bowel movements are improved and steady, an additional 350ccs of output from ABIOLA drain ) Objective vital signs Vital Sign Date Time Temp Pulse Resp B/P (MAP) Pulse Ox O2 Delivery O2 Flow Rate FiO2 04/07/24 18:00 123/83 04/07/24 17:17 97.7 70 16 96 97.7 04/07/24 08:00 Room Air* 0 21 Total Intake and Output 04/06/24 04/06/24 04/07/24 15:00 23:00 07:00 Intake Total 540 ml 800 ml 650 ml Balance 540 ml 800 ml 650 ml medications Current Medications Medications Dose Ordered Sig/Johny Route Start Time Stop Time Status Last Admin Dose Admin Vancomycin HCl 0 ml @ 0 mls/hr UD IV 04/01/24 04:45 Cancel Ondansetron HCl 4 mg Q4HP PRN IV 04/01/24 04:45 04/05/24 04:31 4 MG Morphine Sulfate 2 mg Q4HPRN PRN IV 04/01/24 04:45 04/05/24 19:58 2 MG Nitroglycerin 0.4 mg Q5MINP PRN SL 04/01/24 04:45 Morphine Sulfate 2 mg Q30M PRN IV 04/01/24 04:45 Pantoprazole Sodium 40 mg DAILY IV 04/02/24 10:00 04/07/24 09:30 40 MG Piperacillin Sod/ Tazobactam Sod 100 ml @ 25 mls/hr Q6HR IV 04/01/24 12:00 UNV Diphenhydramine HCl 25 mg Q6HP PRN IV 04/01/24 17:00 Enoxaparin Sodium 40 mg DAILY SC 04/02/24 10:00 04/07/24 09:25 40 MG Oxycodone/ Acetaminophen 1 tab Q6HP PRN PO 04/02/24 16:30 04/07/24 22:03 1 TAB Acetaminophen 650 mg Q8HPRN PRN PO 04/02/24 16:45 04/03/24 19:05 650 MG Sodium Chloride 60 ml Q8HR IV 04/04/24 00:00 Cancel Levetiracetam 750 mg BID PO 04/04/24 11:30 04/07/24 21:57 750 MG Furosemide 20 mg BIDD PO 04/06/24 18:00 04/07/24 05:58 20 MG Clindamycin HCl 450 mg Q8HR PO 04/07/24 06:00 04/07/24 21:56 450 MG Cefpodoxime Proxetil 200 mg BID PO 04/07/24 22:00 UNV Ceftriaxone Sodium/Dextrose 50 ml @ 50 mls/hr DAILY IV 04/08/24 10:00 Physical Exam: General: NAD Neck: Supple. No masses. HEENT: PERRL. Normal lids and conjunctiva. Moist mucous membranes. Oropharynx without lesions, exudates, or excessive erythema. Normal appearance of the external aspects of the nose and ears. Heart: Regular rhythm, tachycardic. No murmur. No lower extremity edema. Lungs: Diminished breath sounds at bases bilaterally. Shortness of breath noted. Abdomen: Distended. Tenderness in suprapubic area. No masses or abdominal hernia. Msk: No digital cyanosis. Normal strength and tone in all 4 limbs. Skin: Warm and dry. Erythema with induration at the base of the surgical incision; no drainage observed. Neuro: Alert. No facial droop or slurred speech. Extra-ocular movements intact. Sensation intact to soft touch in all 4 limbs. Psych: Appropriate mood. Full affect. laboratory and microbiology Laboratory Tests 04/06/24 11:15 04/05/24 05:29 Test 04/05/24 05:29 Range/Units Serum Glucose 90 74-106 mg/dL Problem List/Assessment/Plan Problems(with codes): (1) Rheumatoid arthritis (2) Status post (3) Epilepsy (4) Nausea and vomiting during (5) Pelvic pain during (6) Leukocytes in urine (7) Post-op pain (8) Generalized abdominal pain Problem List/Assessment/Plan ID Problem List: - status - Postoperative surgical site complications - Anterior pelvic wall abscess - Uterine wall abscess - Leukocytosis - Thrombocytosis - Tachycardia - Shortness of breath Assessment: This is a 28 y.o. female, , with a past medical history of cholecystectomy, who presents with one week of nausea, fevers, chills, abdominal pain over the C- section suture line, and induration and swelling at the surgical site. Patient underwent section and tubal ligation on March 16 with a normal recovery until she developed the aforementioned symptoms. Physical exam is significant for a distended abdomen, tenderness in the suprapubic area, tachycardia, shortness of breath, diminished breath sounds at lung bases, and erythema with induration of the surgical site without drainage. Laboratory data reveals leukocytosis (WBC 23.7), thrombocytosis (platelet count 697), and a lactic acid level of 1.3. Blood cultures are no growth to date. MRSA nasal swab is negative. Urine culture is no growth to date. Imaging studies include a CT abdomen and pelvis revealing a large anterior pelvic wall abscess measuring approximately 13.5 x 9.3 x 10.5 cm with an air- fluid level extending into the pelvic cavity anterior to the urinary bladder. An additional hypodense collection within the anterior wall of the uterus communicates with the pelvic wall abscess and the endometrial canal. Other findings include fat stranding and air foci in the anterior pelvic wall soft tissues. The patient underwent CT-guided drainage with placement of an 8.5 [place]ian drain in the pelvic abscess and an 8 Malawian drain in the abdominal abscess. Approximately 550 cc of thick purulent fluid were aspirated and drained. Preliminary cultures from the abscess fluid show Bacillus non-anthracis species; however, samples were obtained after initiation of broad-spectrum antibiotics. The patient has been on vancomycin and Zosyn since admission with an improving white count. She is tolerating diet. 04/06: white count is down to 9.5 04/07: white count is improving Plan: - recommend prolonged course of oral antibiotics , since abscess is quite large recommend monitoring patient on oral antibiotics for 1-2 days to make sure of improvement - patient goes home with at least 30 days of oral antibiotics followed by CT abd pelvis - follow up with infectious diease in 30 days - follow up with gynecology - if abscess persists after 30 days will need to be considered for surgery - recommend additional drain management by gynecology - follow up on aspirated cultures - continue oral clindamycin 450 milligrams every 8 hours and ceftriaxone IV 2 grams daily, both are compatible with - monitor for clinical improvement - Monitor drainage output from ABIOLA drains and assess clinical signs of infection. Plan discussed with: Other Dietary Evaluation Review Comments: 1) Continue current plan of care Expected Outcomes/Goals: F/U in 3-5 days CC Plasma Assessment Blood Product Administration S: [id number] BEN ROBLES MD Apr 07, 2024 22:11
[2024-04-08] VITALS (8 sets, daily range): BP systolic 99–120; BP diastolic 59–78; PULSE 61–87; RESP 16–19; TEMP 97.5–98.1; O2SAT 94–98
[2024-04-08] MEDS: cefTRIAXone 2GM/50ML D5W 50 ML IV SCH (09:29)
[2024-04-08] MEDS ORDERED: CEFD300C2 PO (14:05)
[2024-04-08] MEDS ORDERED: CLIN150C PO (14:05)
[2024-04-08] MEDS ORDERED: HYDR1TAB97 PO (14:05)
--- NOTE | 2024-04-08 14:10 | DVHPN2 ---
Subjective The patient seen and examined at bedside. The patient feels better today. The patient had tried to ambulate. Reviewed: Care Plan, H&P Changes from previous H/P or p: No Changes Eyes: No Pain, No Vision change, No Conjunctivae inflammation, No Eyelid inflammation, No Other, No Redness ENT: No Ear pain, No Ear discharge, No Nose pain, No Nose discharge, No Nose congestion, No Mouth pain, No Mouth swelling, No Throat pain, No Throat swelling, No Other Cardiovascular: No Chest Pain, No Palpitations, No Orthopnea, No Paroxysmal Noc. Dyspnea, No Edema, No Lt Headedness, No Other Respiratory: No Cough, No Dry, No Shortness of breath, No SOB with excertion, No Wheezing, No Hemoptysis, No Pleuritic Pain, No Sputum, No Other Gastrointestinal: Nausea, Vomiting, Abdominal Pain, Diarrhea Genitourinary: No Dysuria, No Frequency, No Incontinence, No Hematuria, No Retention, No Other Musculoskeletal: No other, No neck pain, No shoulder pain, No arm pain, No back pain, No hand pain, No leg pain, No foot pain Skin: No Rash, No Lesions, No Jaundice, No Bruising, No Other Objective Vitals Vital Signs Date Time Temp Pulse Resp B/P (MAP) Pulse Ox O2 Delivery O2 Flow Rate FiO2 04/08/24 12:07 97.9 68 19 105/64 (78) 94 97.9 04/07/24 20:00 Room Air* 0 21 Intake/Output Intake and Output 04/08/24 07:00 Intake Total 1475 ml Balance 1475 ml Intake Oral 1425 ml IV Total 50 ml # Voids 6 # Bowel Movements 3 General Appearance: Alert, Oriented X3, Cooperative, No acute distress HEENT: Atraumatic, PERRLA, EOMI, Mucous membr. moist/pink Neck: Supple Cardiovascular: Regular rate, Normal S1, Normal S2 Abdomen: Normal bowel sounds [employer]: Other (Left major labia swollen) Neuro: Cranial nerves 3-12 NL Psych/Mental Status: Mental status NL Medications Current Medications Medications Dose Ordered Sig/Johny Route Start Time Stop Time Status Last Admin Dose Admin Vancomycin HCl 0 ml @ 0 mls/hr UD IV 04/01/24 04:45 Cancel Ondansetron HCl 4 mg Q4HP PRN IV 04/01/24 04:45 04/05/24 04:31 4 MG Morphine Sulfate 2 mg Q4HPRN PRN IV 04/01/24 04:45 04/05/24 19:58 2 MG Nitroglycerin 0.4 mg Q5MINP PRN SL 04/01/24 04:45 Morphine Sulfate 2 mg Q30M PRN IV 04/01/24 04:45 Pantoprazole Sodium 40 mg DAILY IV 04/02/24 10:00 04/08/24 09:29 40 MG Piperacillin Sod/ Tazobactam Sod 100 ml @ 25 mls/hr Q6HR IV 04/01/24 12:00 UNV Diphenhydramine HCl 25 mg Q6HP PRN IV 04/01/24 17:00 Enoxaparin Sodium 40 mg DAILY SC 04/02/24 10:00 04/08/24 09:31 40 MG Oxycodone/ Acetaminophen 1 tab Q6HP PRN PO 04/02/24 16:30 04/08/24 05:12 1 TAB Acetaminophen 650 mg Q8HPRN PRN PO 04/02/24 16:45 04/03/24 19:05 650 MG Sodium Chloride 60 ml Q8HR IV 04/04/24 00:00 Cancel Levetiracetam 750 mg BID PO 04/04/24 11:30 04/08/24 09:31 750 MG Furosemide 20 mg BIDD PO 04/06/24 18:00 04/08/24 04:57 20 MG Clindamycin HCl 450 mg Q8HR PO 04/07/24 06:00 04/08/24 04:57 450 MG Cefpodoxime Proxetil 200 mg BID PO 04/07/24 22:00 UNV Ceftriaxone Sodium/Dextrose 50 ml @ 50 mls/hr DAILY IV 04/08/24 10:00 04/08/24 09:29 50 MLS/HR Laboratory Results Laboratory Tests 04/05/24 05:29 04/06/24 11:15 Urinalysis Test 04/01/24 05:28 Urine Color Yellow (Yellow) Urine Clarity Clear (Clear) Urine pH 6.5 (5.0-9.0) Urine Specific [place] > 1.050 (1.001-1.035) Urine Protein 1+ (Negative) H Urine Ketones Negative (Negative) Urine Blood 2+ /uL (Negative) H Urine Nitrite Negative (Negative) Urine Bilirubin Negative (Negative) Urine Urobilinogen Normal mg/dL (Negative) Urine Leukocyte Esterase 2+ /uL (Negative) Urine RBC 17 /hpf (0 - 4) Urine WBC 31 /hpf (0 - 5) Urine Squamous Epithelial Cells Few /hpf (<5) Urine Bacteria Few /hpf (None Seen) H Urine Glucose Normal mg/dL (Normal) Microbiology Microbiology Date/Time Source Procedure Growth Status 04/03/24 10:20 Aspirate Gram Stain - Final Resulted 04/03/24 10:20 Aspirate Body Fluid Culture - Preliminary Resulted 04/02/24 19:58 Blood Blood Culture - Final NO GROWTH AFTER 5 DAYS OF INCUBATION. Complete 04/02/24 15:00 Urine - [place] Urine Culture - Final Complete 04/01/24 20:35 Nose MRSA Screen - Final Complete Labs and/or images reviewed: Labs reviewed by me Assessment/Plan Assessment/Plan # sepsis due to pelvic wall abscess and anterior wall abscess of the uterus IV fluids IV antibiotics, Vanco and Zosyn Blood culture Lactic acid levels Status post IR drainage. Waiting for culture. # pelvic wall abscess and anterior wall episode of the uterus -IV vancomycin plus Zosyn OBGYN consult Status post do drainage to the pelvic abscess. Patient now feel much better. # intractable nausea/vomiting in the setting of sepsis -IV ondansetron p.r.n. -continue clear liquid, advance as tolerated # intractable diarrhea in the setting of sepsis, improving -IV fluids -continue clear liquid diet, advance as tolerated # major labia swollen due to 3rd spacing -continuing with ice pack and pain medication # epilepsy Continue home medication # history of rheumatoid arthritis Patient does not take any active medication We will monitor # recent history of OBGYN consult #Swollen of left major labia. Secondary to 3rd spacing. Recommend icepack to the area. Ob no further intervention Lines Midline DVT prophylaxis -Low dose Lovenox 40mg SC daily Continuing current management. Waiting for culture results from the abscess drainage. Antibiotic when discharge per ID recommendation. Discharge planning Plan discussed with: Patient My Orders Orders - CECILIO MOISE MD Procedure Category Date Status Time Discharge DISCHARGE 04/08/24 Verified 14:07 Date of Service: Apr 08, 2024 Billing Provider: CECILIO MOISE MD Common Visit Codes: [id number] INP/OBS CARE(HIGH) CECILIO MOISE MD Apr 08, 2024 14:10
[2024-04-08] MEDS ORDERED: AUG875T PO (18:59)
[2024-04-08] MEDS: AMPICILLIN & SULBACTAM SODIUM 3 GM in SODIUM CHL 0.9% 100 ML IV SCH (19:55)
--- NOTE | 2024-04-08 22:20 | DVHPN2 ---
Consult Progress Note Date Seen: Apr 08, 2024 Subjective Patient reports: Other (has high amounts of GP drain output , whitecount is coming down and having good BP. Is on regular diet and tolerating , good bowel movements. 250ccs of drainage from ABIOLA drain ) Objective vital signs Vital Sign Date Time Temp Pulse Resp B/P (MAP) Pulse Ox O2 Delivery O2 Flow Rate FiO2 04/08/24 18:29 114/67 04/08/24 16:44 98.1 69 16 95 98.1 04/08/24 08:30 Room Air* 0 21 Total Intake and Output 04/07/24 04/07/24 04/08/24 15:00 23:00 07:00 Intake Total 50 ml 625 ml 800 ml Balance 50 ml 625 ml 800 ml medications Current Medications Medications Dose Ordered Sig/Johny Route Start Time Stop Time Status Last Admin Dose Admin Vancomycin HCl 0 ml @ 0 mls/hr UD IV 04/01/24 04:45 Cancel Ondansetron HCl 4 mg Q4HP PRN IV 04/01/24 04:45 04/05/24 04:31 4 MG Morphine Sulfate 2 mg Q4HPRN PRN IV 04/01/24 04:45 04/05/24 19:58 2 MG Nitroglycerin 0.4 mg Q5MINP PRN SL 04/01/24 04:45 Morphine Sulfate 2 mg Q30M PRN IV 04/01/24 04:45 Pantoprazole Sodium 40 mg DAILY IV 04/02/24 10:00 04/08/24 09:29 40 MG Piperacillin Sod/ Tazobactam Sod 100 ml @ 25 mls/hr Q6HR IV 04/01/24 12:00 UNV Diphenhydramine HCl 25 mg Q6HP PRN IV 04/01/24 17:00 Enoxaparin Sodium 40 mg DAILY SC 04/02/24 10:00 04/08/24 09:31 40 MG Oxycodone/ Acetaminophen 1 tab Q6HP PRN PO 04/02/24 16:30 04/08/24 18:26 1 TAB Acetaminophen 650 mg Q8HPRN PRN PO 04/02/24 16:45 04/03/24 19:05 650 MG Sodium Chloride 60 ml Q8HR IV 04/04/24 00:00 Cancel Levetiracetam 750 mg BID PO 04/04/24 11:30 04/08/24 21:23 750 MG Furosemide 20 mg BIDD PO 04/06/24 18:00 04/08/24 18:29 20 MG Cefpodoxime Proxetil 200 mg BID PO 04/07/24 22:00 UNV Ampicillin Sodium/ Sulbactam Sodium 3 gm/Sodium Chloride 100 ml @ 100 mls/hr Q6H IV 04/08/24 18:45 04/08/24 19:55 100 MLS/HR Physical Exam: General: NAD Neck: Supple. No masses. HEENT: PERRL. Normal lids and conjunctiva. Moist mucous membranes. Oropharynx without lesions, exudates, or excessive erythema. Normal appearance of the external aspects of the nose and ears. Heart: Regular rhythm, tachycardic. No murmur. No lower extremity edema. Lungs: Diminished breath sounds at bases bilaterally. Shortness of breath noted. Abdomen: Distended. Tenderness in suprapubic area. No masses or abdominal hernia. Msk: No digital cyanosis. Normal strength and tone in all 4 limbs. Skin: Warm and dry. Erythema with induration at the base of the surgical incision; no drainage observed. Neuro: Alert. No facial droop or slurred speech. Extra-ocular movements intact. Sensation intact to soft touch in all 4 limbs. Psych: Appropriate mood. Full affect. laboratory and microbiology Laboratory Tests 04/06/24 11:15 04/05/24 05:29 Test 04/05/24 05:29 Range/Units Serum Glucose 90 74-106 mg/dL Problem List/Assessment/Plan Problems(with codes): (1) Status post (2) Rheumatoid arthritis (3) Epilepsy (4) Nausea and vomiting during (5) Pelvic pain during (6) Leukocytes in urine (7) Post-op pain (8) Generalized abdominal pain Problem List/Assessment/Plan ID Problem List: - status - Postoperative surgical site complications - Anterior pelvic wall abscess - Uterine wall abscess - Leukocytosis - Thrombocytosis - Tachycardia - Shortness of breath Assessment: This is a 28 y.o. female, , with a past medical history of cholecystectomy, who presents with one week of nausea, fevers, chills, abdominal pain over the C- section suture line, and induration and swelling at the surgical site. Patient underwent section and tubal ligation on March 16 with a normal recovery until she developed the aforementioned symptoms. Physical exam is significant for a distended abdomen, tenderness in the suprapubic area, tachycardia, shortness of breath, diminished breath sounds at lung bases, and erythema with induration of the surgical site without drainage. Laboratory data reveals leukocytosis (WBC 23.7), thrombocytosis (platelet count 697), and a lactic acid level of 1.3. Blood cultures are no growth to date. MRSA nasal swab is negative. Urine culture is no growth to date. Imaging studies include a CT abdomen and pelvis revealing a large anterior pelvic wall abscess measuring approximately 13.5 x 9.3 x 10.5 cm with an air- fluid level extending into the pelvic cavity anterior to the urinary bladder. An additional hypodense collection within the anterior wall of the uterus communicates with the pelvic wall abscess and the endometrial canal. Other findings include fat stranding and air foci in the anterior pelvic wall soft tissues. The patient underwent CT-guided drainage with placement of an 8.5 [place]ian drain in the pelvic abscess and an 8 Albanian drain in the abdominal abscess. Approximately 550 cc of thick purulent fluid were aspirated and drained. Preliminary cultures from the abscess fluid show Bacillus non-anthracis species; however, samples were obtained after initiation of broad-spectrum antibiotics. The patient has been on vancomycin and Zosyn since admission with an improving white count. She is tolerating diet. 04/06: white count is down to 9.5 04/07: white count is improving 04/08: white ccount has normalized , preliminary Abiola drain asprit is growing enterococcus , Plan: -recommend awaiting suseptablility testing as that will effect which antibiotic will be chosen as compatible with brestfeeding - stop clinamycin and ceftriaxone - start Unison - if entercoccus is not ampacillin resistant , send patienthome with 30 days of oral augmenten 875 125 milligrams BID -Recommend monitioring for at least 1 day on oral therapy to ensure patient is not getting sick on this regimen - recommend prolonged course of oral antibiotics , since abscess is quite large recommend monitoring patient on oral antibiotics for 1-2 days to make sure of improvement - patient goes home with at least 30 days of oral antibiotics followed by CT abd pelvis - follow up with infectious diease in 30 days - follow up with gynecology - if abscess persists after 30 days will need to be considered for surgery - recommend additional drain management by gynecology - follow up on aspirated cultures - continue oral clindamycin 450 milligrams every 8 hours and ceftriaxone IV 2 grams daily, both are compatible with - monitor for clinical improvement - Monitor drainage output from ABIOLA drains and assess clinical signs of infection. Plan discussed with: Other Dietary Evaluation Review Comments: 1) Continue current plan of care Expected Outcomes/Goals: F/U in 3-5 days CC Plasma Assessment Blood Product Administration S: [id number] BEN ROBLES MD Apr 08, 2024 22:20
--- NOTE | 2024-04-08 22:29 | DVHPN2 ---
Progress Note - Dictate Date Seen: Apr 08, 2024 Medical Necessity Reason Pt with a Central, PICC or Fol: No The following are medically ne: Chavarria Catheter Reason for chavarria catheter: Strict I&O Subjective Patient seen and examined at bedside. Breathing on room air. Overnight events reviewed. vital signs Vital Sign Date Time Temp Pulse Resp B/P (MAP) Pulse Ox O2 Delivery O2 Flow Rate FiO2 04/08/24 18:29 114/67 04/08/24 16:44 98.1 69 16 95 98.1 04/08/24 08:30 Room Air* 0 21 Total Intake and Output 04/07/24 04/07/24 04/08/24 15:00 23:00 07:00 Intake Total 50 ml 625 ml 800 ml Balance 50 ml 625 ml 800 ml medications Current Medications Medications Dose Ordered Sig/Johny Route Start Time Stop Time Status Last Admin Dose Admin Vancomycin HCl 0 ml @ 0 mls/hr UD IV 04/01/24 04:45 Cancel Ondansetron HCl 4 mg Q4HP PRN IV 04/01/24 04:45 04/05/24 04:31 4 MG Morphine Sulfate 2 mg Q4HPRN PRN IV 04/01/24 04:45 04/05/24 19:58 2 MG Nitroglycerin 0.4 mg Q5MINP PRN SL 04/01/24 04:45 Morphine Sulfate 2 mg Q30M PRN IV 04/01/24 04:45 Pantoprazole Sodium 40 mg DAILY IV 04/02/24 10:00 04/08/24 09:29 40 MG Piperacillin Sod/ Tazobactam Sod 100 ml @ 25 mls/hr Q6HR IV 04/01/24 12:00 UNV Diphenhydramine HCl 25 mg Q6HP PRN IV 04/01/24 17:00 Enoxaparin Sodium 40 mg DAILY SC 04/02/24 10:00 04/08/24 09:31 40 MG Oxycodone/ Acetaminophen 1 tab Q6HP PRN PO 04/02/24 16:30 04/08/24 18:26 1 TAB Acetaminophen 650 mg Q8HPRN PRN PO 04/02/24 16:45 04/03/24 19:05 650 MG Sodium Chloride 60 ml Q8HR IV 04/04/24 00:00 Cancel Levetiracetam 750 mg BID PO 04/04/24 11:30 04/08/24 21:23 750 MG Furosemide 20 mg BIDD PO 04/06/24 18:00 04/08/24 18:29 20 MG Cefpodoxime Proxetil 200 mg BID PO 04/07/24 22:00 UNV Ampicillin Sodium/ Sulbactam Sodium 3 gm/Sodium Chloride 100 ml @ 100 mls/hr Q6H IV 04/08/24 18:45 04/08/24 19:55 100 MLS/HR objective Gen.: Patient lying in bed in no apparent distress. Breathing on room air. Head: Normocephalic, atraumatic. Eyes: EOMI/PERRLA. Ears: Normal hearing. Normal anatomy. Neck/trachea: Trachea midline, supple. Nose: Normal external anatomy. Mouth: Moist mucous membranes. Chest: Decreased air entry bilaterally. No wheezing or rhonchi. Cardiovascular: Positive S1, positive S2. Regular rate and rhythm. Abdomen: Positive bowel sounds in all 4 quadrants. Soft, non-tender, non- distended. : Deferred. Rectal: Deferred. Skin: Warm, dry. Intact. Extremities: 2+ radial pulses bilaterally. No lower extremity edema. Neuro: Awake, alert, oriented x3. No gross motor or sensory deficits. Cranial nerves II through XII intact. Gait not assessed. laboratory and microbiology Laboratory Tests 04/06/24 11:15 04/05/24 05:29 Test 04/05/24 05:29 Range/Units Serum Glucose 90 74-106 mg/dL Assessment/Plan Impression: Dyspnea Diarrhea S/p section Abdominal abscess Hypokalemia Events: Breathing on room air No respiratory distress. Continue antibiotics Incentive spirometry Wound care Pain control Avoid oversedation Monitor ABIOLA drain output Diurese w/ Lasix as tolerated Monitor renal function. Monitor electrolytes. Supplement as necessary. Patient is stable for discharge from the pulmonary standpoint. Labs and imaging reviewed. Rest of plan as noted below. Plan: Supplemental oxygen PRN Titrate to keep O2 sats above 92%. Continue antibiotics - ceftriaxone, clindamycin. Incentive spirometry Pain control Avoid oversedation S/p placement of abdominal and pelvic drains by IR for drainage of abscess. Monitor renal function. Monitor electrolytes. Supplement as necessary. Monitor ins and outs. Potassium supplementation GI prophylaxis w/ Protonix DVT prophylaxis. Prognosis: Poor given patient's multiple co-morbidities. Rest of plan per hospitalist and other consultants. Thank you Jovani Orona, VEE, for allowing me to participate in this patient's care. Further recommendations will depend on the patient's clinical course. Please do not hesitate to contact me if you have any questions or concerns. This medical document was created using an electronic medical record system with [employer] dictation system. Although these documentations are being carefully reviewed, there may still be some phonetic and typographical changes. The errors are purely typographical, due to imperfection on the software program, and do not reflect any compromise in the patient's medical care. Dietary Evaluation Review Comments: 1) Continue current plan of care Expected Outcomes/Goals: F/U in 3-5 days Plan discussed with: Patient, Other (VINCE Nguyen) CC Plasma Assessment Blood Product Administration S: [id number] AALIYAH CARVALHO MD Apr 08, 2024 22:29
[2024-04-09 01:00] VITALS: BP 110/68; PULSE 61; RESP 18; TEMP 97.9; O2SAT 94
[2024-04-09 05:00] VITALS: BP 112/65; PULSE 62; RESP 17; TEMP 97.6; O2SAT 93
[2024-04-09 08:30] VITALS: PULSE 59
[2024-04-09 08:44] VITALS: BP 114/68; PULSE 59; RESP 16; TEMP 98.1; O2SAT 99
--- NOTE | 2024-04-09 09:57 | DVHPN2 ---
Subjective The patient seen and examined at bedside. The patient complains of left major labia pain and swollen. Reviewed: Care Plan, H&P Eyes: No Pain, No Vision change, No Conjunctivae inflammation, No Eyelid inflammation, No Other, No Redness ENT: No Ear pain, No Ear discharge, No Nose pain, No Nose discharge, No Nose congestion, No Mouth pain, No Mouth swelling, No Throat pain, No Throat swelling, No Other Cardiovascular: No Chest Pain, No Palpitations, No Orthopnea, No Paroxysmal Noc. Dyspnea, No Edema, No Lt Headedness, No Other Respiratory: No Cough, No Dry, No Shortness of breath, No SOB with excertion, No Wheezing, No Hemoptysis, No Pleuritic Pain, No Sputum, No Other Gastrointestinal: Nausea, Vomiting, Abdominal Pain, Diarrhea Genitourinary: No Dysuria, No Frequency, No Incontinence, No Hematuria, No Retention, No Other Musculoskeletal: No other, No neck pain, No shoulder pain, No arm pain, No back pain, No hand pain, No leg pain, No foot pain Skin: No Rash, No Lesions, No Jaundice, No Bruising, No Other Objective Vitals Vital Signs Date Time Temp Pulse Resp B/P (MAP) Pulse Ox O2 Delivery O2 Flow Rate FiO2 04/09/24 08:44 98.1 59 16 114/68 (83) 99 98.1 04/08/24 20:00 Room Air* 0 21 Intake/Output Intake and Output 04/09/24 07:00 Intake Total 1360 ml Output Total 800 ml Balance 560 ml Intake Oral 1360 ml Output Urine Total 800 ml # Voids 3 # Bowel Movements 3 General Appearance: Alert, Oriented X3 Cardiovascular: Regular rate, Normal S1, Normal S2 Abdomen: Normal bowel sounds Medications Current Medications Medications Dose Ordered Sig/Johny Route Start Time Stop Time Status Last Admin Dose Admin Vancomycin HCl 0 ml @ 0 mls/hr UD IV 04/01/24 04:45 Cancel Ondansetron HCl 4 mg Q4HP PRN IV 04/01/24 04:45 04/05/24 04:31 4 MG Morphine Sulfate 2 mg Q4HPRN PRN IV 04/01/24 04:45 04/05/24 19:58 2 MG Nitroglycerin 0.4 mg Q5MINP PRN SL 04/01/24 04:45 Morphine Sulfate 2 mg Q30M PRN IV 04/01/24 04:45 Pantoprazole Sodium 40 mg DAILY IV 04/02/24 10:00 04/09/24 09:29 40 MG Piperacillin Sod/ Tazobactam Sod 100 ml @ 25 mls/hr Q6HR IV 04/01/24 12:00 UNV Diphenhydramine HCl 25 mg Q6HP PRN IV 04/01/24 17:00 Enoxaparin Sodium 40 mg DAILY SC 04/02/24 10:00 04/09/24 09:30 40 MG Oxycodone/ Acetaminophen 1 tab Q6HP PRN PO 04/02/24 16:30 04/09/24 09:28 1 TAB Acetaminophen 650 mg Q8HPRN PRN PO 04/02/24 16:45 04/03/24 19:05 650 MG Sodium Chloride 60 ml Q8HR IV 04/04/24 00:00 Cancel Levetiracetam 750 mg BID PO 04/04/24 11:30 04/09/24 09:26 750 MG Furosemide 20 mg BIDD PO 04/06/24 18:00 04/09/24 05:21 20 MG Cefpodoxime Proxetil 200 mg BID PO 04/07/24 22:00 UNV Ampicillin Sodium/ Sulbactam Sodium 3 gm/Sodium Chloride 100 ml @ 100 mls/hr Q6H IV 04/08/24 18:45 04/09/24 05:22 100 MLS/HR Laboratory Results Laboratory Tests 04/05/24 05:29 04/06/24 11:15 Urinalysis Test 04/01/24 05:28 Urine Color Yellow (Yellow) Urine Clarity Clear (Clear) Urine pH 6.5 (5.0-9.0) Urine Specific [place] > 1.050 (1.001-1.035) Urine Protein 1+ (Negative) H Urine Ketones Negative (Negative) Urine Blood 2+ /uL (Negative) H Urine Nitrite Negative (Negative) Urine Bilirubin Negative (Negative) Urine Urobilinogen Normal mg/dL (Negative) Urine Leukocyte Esterase 2+ /uL (Negative) Urine RBC 17 /hpf (0 - 4) Urine WBC 31 /hpf (0 - 5) Urine Squamous Epithelial Cells Few /hpf (<5) Urine Bacteria Few /hpf (None Seen) H Urine Glucose Normal mg/dL (Normal) Microbiology Microbiology Date/Time Source Procedure Growth Status 04/03/24 10:20 Aspirate Gram Stain - Final Resulted 04/03/24 10:20 Aspirate Body Fluid Culture - Preliminary Resulted 04/02/24 19:58 Blood Blood Culture - Final NO GROWTH AFTER 5 DAYS OF INCUBATION. Complete 04/02/24 15:00 Urine - [place] Urine Culture - Final Complete 04/01/24 20:35 Nose MRSA Screen - Final Complete Assessment/Plan Assessment/Plan # sepsis due to pelvic wall abscess and anterior wall abscess of the uterus IV fluids IV antibiotics, Vanco and Zosyn Blood culture Lactic acid levels Status post IR drainage. Waiting for culture. # pelvic wall abscess and anterior wall episode of the uterus -IV vancomycin plus Zosyn OBGYN consult Status post do drainage to the pelvic abscess. Patient now feel much better. # intractable nausea/vomiting in the setting of sepsis -IV ondansetron p.r.n. -continue clear liquid, advance as tolerated # intractable diarrhea in the setting of sepsis, improving -IV fluids -continue clear liquid diet, advance as tolerated # epilepsy Continue home medication # history of rheumatoid arthritis Patient does not take any active medication We will monitor # recent history of OBGYN consult #Swollen of left major labia. Secondary to 3rd spacing. Recommend icepack to the area. Ob no further intervention Lines Midline DVT prophylaxis -Low dose Lovenox 40mg SC daily Continuing current management. Waiting for culture results from the abscess drainage. Antibiotic when discharge per ID recommendation. Discharge planning My Orders Orders - CECILIO MOISE MD Procedure Category Date Status Time Discharge DISCHARGE 04/09/24 Transmitted 14:00 CECILIO MOISE MD Apr 09, 2024 09:57
--- NOTE | 2024-04-09 09:58 | DVHDS2 ---
Discharge Summary Date of Admission Apr 01, 2024 at 04:37 Date of Discharge: Apr 09, 2024 Admitting Diagnosis # sepsis due to pelvic wall abscess and anterior wall abscess of the uterus # pelvic wall abscess and anterior wall episode of the uterus # intractable nausea/vomiting in the setting of sepsis # intractable diarrhea in the setting of sepsis, improving # epilepsy # history of rheumatoid arthritis # recent history of #Swollen of left major labia. Secondary to 3rd spacing. Labs/Diagnostic Data: Laboratory Results Test 04/06/24 11:15 04/05/24 12:21 04/05/24 05:29 04/03/24 23:10 White Blood Count 9.5 10^3/uL (4.4-10.8) Red Blood Count 3.41 10^6/uL (4.0-5.20) Hemoglobin 9.8 g/dL (12.2-16.2) Hematocrit 29.4 % (36.0-46.0) Mean Corpuscular Volume 86.0 fL (80.0-100.0) Mean Corpuscular Hemoglobin 28.6 pg (28.0-32.0) Mean Corpuscular Hemoglobin Concent 33.2 g/dL (32.0-36.0) Red Cell Distribution Width 15.1 % (11.8-14.3) Platelet Count 531 10^3/uL (140-450) Mean Platelet Volume 5.8 fL (6.9-10.8) Neutrophils (%) (Auto) 64.0 % (37.0-80.0) Lymphocytes (%) (Auto) 24.6 % (10.0-50.0) Monocytes (%) (Auto) 7.7 % (0.0-12.0) Eosinophils (%) (Auto) 3.3 % (0.0-7.0) Basophils (%) (Auto) 0.4 % (0.0-2.0) Neutrophils # (Auto) 6.1 10 ^3/uL (1.6-8.6) Lymphocytes # (Auto) 2.3 10 ^3/uL (0.4-5.4) Monocytes # (Auto) 0.7 10 ^3/uL (0-1.3) Eosinophils # (Auto) 0.3 10 ^3/uL (0-0.8) Basophils # (Auto) 0 10 ^3/uL (0-0.2) Nucleated Red Blood Cells 0.2 % Vancomycin Level Trough 13.7 ug/mL (5-10) Sodium Level 141 mmol/L (136-145) Potassium Level 3.4 mmol/L (3.5-5.1) Chloride Level 109 mmol/L (98-107) Carbon Dioxide Level 24 mmol/L (20-31) Anion Gap 8 (5-15) Blood Urea Nitrogen < 5 mg/dL (9-23) Creatinine 0.50 mg/dL (0.550-1.02) Glomerular Filtration Rate Calc 129 mL/min (>90) BUN/Creatinine Ratio 10.0 (10.0-20.0) Serum Glucose 90 mg/dL (74-106) Calcium Level 8.3 mg/dL (8.7-10.4) Phosphorus Level 2.8 mg/dL (2.4-5.1) Magnesium Level 2.0 mg/dL (1.6-2.6) Total Bilirubin 0.2 mg/dL (0.2-1.0) Aspartate Amino Transferase (AST) 16 U/L (13-40) Alanine Aminotransferase (ALT) 10 U/L (7-40) Alkaline Phosphatase 107 U/L (46-116) Total Protein 5.2 g/dL (5.7-8.2) Albumin 2.6 g/dL (3.2-4.8) Test 04/02/24 19:58 04/01/24 09:36 04/01/24 05:28 Prothrombin Time 13.4 sec (9.3-11.8) Prothrombin Time INR 1.29 (0.9-1.15) Activated Partial Thromboplast Time 35.2 SEC (24.5-34.5) Lactic Acid Level 1.0 mmol/L (0.4-2.0) Urine Color Yellow (Yellow) Urine Clarity Clear (Clear) Urine pH 6.5 (5.0-9.0) Urine Specific [place] > 1.050 (1.001-1.035) Urine Protein 1+ (Negative) Urine Ketones Negative (Negative) Urine Blood 2+ /uL (Negative) Urine Nitrite Negative (Negative) Urine Bilirubin Negative (Negative) Urine Urobilinogen Normal mg/dL (Negative) Urine Leukocyte Esterase 2+ /uL (Negative) Urine RBC 17 /hpf (0 - 4) Urine WBC 31 /hpf (0 - 5) Urine Squamous Epithelial Cells Few /hpf (<5) Urine Bacteria Few /hpf (None Seen) Urine Glucose Normal mg/dL (Normal) Urine Opiates Screen Neg (NEGATIVE) Urine Fentanyl Screen Neg (NEGATIVE) Urine Barbiturates Screen Neg (NEGATIVE) Urine Phencyclidine Screen Neg (NEGATIVE) Urine Amphetamines Screen Neg (NEGATIVE) Urine Benzodiazepines Screen Neg (NEGATIVE) Urine Cocaine Screen Neg (NEGATIVE) Urine Cannabinoids Screen Neg (NEGATIVE) Other Laboratory Tests 04/06/24 11:15 04/05/24 05:29 Brief Hx & Hospital Course: This is a 28 years old female with past medical history epilepsy, came into emergency department because severe abdominal pain. The patient apparently delivery her 3rd child and required about two weeks ago. The patient said after she left the hospital and went home she had severe lower abdominal pain locate her right lower quadrant. Her abdominal pain associated with nausea, vomiting, and diarrhea. The patient also unable to keep any food down. The patient feel chills, subjective fever, diaphoresis. She also lost appetite ice and weak. The patient was found to have elevation of WBC at 23.7. CT scan abdomen pelvis revealing a formed abscess in the anterior pelvic wall. The patient also had some abscess of the posterior in the endometrial canal. The patient also had pain in edema on the left major labia. The patient was started on IV antibiotic vancomycin and Zosyn. OBGYN and Infectious Disease was consulted. They recommend the interventional radiology drainage of the abscess. It was done successfully. Her WBC improved after the drainage of abscess. The patient's major labia edema due to 3rd spacing. OBGYN did not recommend any further management except ice pack. The patient labia pain improved and the swollen when down. The Patient able to keep food down. No nausea or vomiting or diarrhea. Patient able to ambulate. The patient also pass flatus. Her blood culture, urine culture in abscess culture showed no growth. The patient will be discharged home today. Per infectious disease doctor because of her abscess as a complication of he recommend one month on oral antibiotic. We start the patient on Augmentin 875/1251 tablet twice per day for the home month. I am going to discharge her home today. Advised her to follow up with OBGYN per schedule for follow up visit. Follow up with primary care physician 1-2 weeks. Activity as tolerated. Diet per home diet. Do not lift anything more than 10 lb for two weeks. Physical exam: HEENT: Normocephalic atraumatic pupils equal react to light and accommodation. Extraocular muscles intact, conjunctiva pink, oropharynx moist, no thrush, no exudate. Lymphatic: No lymphadenopathy Cardiovascular exam: S1, S2 was heard. No murmurs, rubs, gallops Lung: Clear on auscultation bilaterally, no wheeze, rale, rhonchi. GI: Abdominal soft, nondistended, nontenderness, positive bowel sounds. Extremity: No crepitus, cyanosis, edema. Pedal pulses present bilateral. Full range of motion. Skin: Normal turgor, no rash. Psych: Alert, oriented x3. Neurology: No focal deficits, cranial nerve II to XII grossly intact. Condition at Discharge: Stable Final Diagnosis/Problems List # sepsis due to pelvic wall abscess and anterior wall abscess of the uterus # pelvic wall abscess and anterior wall episode of the uterus # intractable nausea/vomiting in the setting of sepsis # intractable diarrhea in the setting of sepsis, improving # epilepsy # history of rheumatoid arthritis # recent history of #Swollen of left major labia. Secondary to 3rd spacing. Discharge Disposition: Home Discharge Instruct/Medications Diet: Regular Activity: No Restrictions, As Tolerated Follow Up/Referral: pcp 1-2 weeks TOXICOLOGIST, Dr Brody in 1 week Medications: Augmentin 875/125 1 tablet p.o. b.i.d. for one month Percocet q6hPRN for pain Resume home meds Discharge Statement: "Patient was advised to return to the ER or call 911 if any headaches, dizziness, shortness of breath, chest pain, abdominal pain, bleeding, fevers, or worsening of medical condition. Patient was counseled about treatment plan, medications, possible side effects, patientverbalized understanding. All questions were answered to the best of my ability. This discharge took greater then 30 minutes in planning, reviewing documentation, counseling the patient, and discussing with other team members." ASSESSMENT ASSESSMENT Assessment C section wound infection Date of Service: Apr 09, 2024 Billing Provider: CECILIO MOISE MD Common Visit Codes: 00180-XYS/OBS DISCH DAY >30min CECILIO MOISE MD Apr 09, 2024 09:57
[2024-04-09] MEDS ORDERED: AUG875T PO (10:03)
[2024-04-09] MEDS ORDERED: PERCOT PO (10:03)
[2024-04-09 13:00] VITALS: BP 112/60; PULSE 65; RESP 17; TEMP 98.3; O2SAT 92
[2024-04-09 17:00] VITALS: BP 128/77; PULSE 67; RESP 17; TEMP 98; O2SAT 93
--- NOTE | 2024-04-09 22:05 | DVHPN2 ---
Consult Progress Note Date Seen: Apr 09, 2024 Subjective Patient reports: Feels better (tolerating unison without any issues , explained to patietn why her antibiotics were changed . 100ccs of drainage output , tolerating diet ) Objective vital signs Vital Sign Date Time Temp Pulse Resp B/P (MAP) Pulse Ox O2 Delivery O2 Flow Rate FiO2 04/09/24 17:00 98.0 67 17 128/77 (94) 93 98.0 04/09/24 08:30 Room Air* 0 21 Total Intake and Output 04/08/24 04/08/24 04/09/24 15:00 23:00 07:00 Intake Total 110 ml 500 ml 750 ml Output Total 800 ml Balance 110 ml -300 ml 750 ml medications Current Medications Medications Dose Ordered Sig/Johny Route Start Time Stop Time Status Last Admin Dose Admin Vancomycin HCl 0 ml @ 0 mls/hr UD IV 04/01/24 04:45 Cancel Piperacillin Sod/ Tazobactam Sod 100 ml @ 25 mls/hr Q6HR IV 04/01/24 12:00 UNV Sodium Chloride 60 ml Q8HR IV 04/04/24 00:00 Cancel Cefpodoxime Proxetil 200 mg BID PO 04/07/24 22:00 UNV Physical Exam: General: NAD Neck: Supple. No masses. HEENT: PERRL. Normal lids and conjunctiva. Moist mucous membranes. Oropharynx without lesions, exudates, or excessive erythema. Normal appearance of the external aspects of the nose and ears. Heart: Regular rhythm, tachycardic. No murmur. No lower extremity edema. Lungs: Diminished breath sounds at bases bilaterally. Shortness of breath noted. Abdomen: Distended. Tenderness in suprapubic area. No masses or abdominal hernia. Msk: No digital cyanosis. Normal strength and tone in all 4 limbs. Skin: Warm and dry. Erythema with induration at the base of the surgical incision; no drainage observed. Neuro: Alert. No facial droop or slurred speech. Extra-ocular movements intact. Sensation intact to soft touch in all 4 limbs. Psych: Appropriate mood. Full affect. laboratory and microbiology Laboratory Tests 04/06/24 11:15 04/05/24 05:29 Test 04/05/24 05:29 Range/Units Serum Glucose 90 74-106 mg/dL Problem List/Assessment/Plan Problems(with codes): (1) Rheumatoid arthritis (2) Epilepsy (3) Status post (4) Nausea and vomiting during (5) Pelvic pain during (6) Leukocytes in urine (7) Post-op pain (8) Generalized abdominal pain (9) Thrombocytosis (10) Abdominal pain Problem List/Assessment/Plan ID Problem List: - status - Postoperative surgical site complications - Anterior pelvic wall abscess - Uterine wall abscess - Leukocytosis - Thrombocytosis - Tachycardia - Shortness of breath Assessment: This is a 28 y.o. female, , with a past medical history of cholecystectomy, who presents with one week of nausea, fevers, chills, abdominal pain over the C- section suture line, and induration and swelling at the surgical site. Patient underwent section and tubal ligation on March 16 with a normal recovery until she developed the aforementioned symptoms. Physical exam is significant for a distended abdomen, tenderness in the suprapubic area, tachycardia, shortness of breath, diminished breath sounds at lung bases, and erythema with induration of the surgical site without drainage. Laboratory data reveals leukocytosis (WBC 23.7), thrombocytosis (platelet count 697), and a lactic acid level of 1.3. Blood cultures are no growth to date. MRSA nasal swab is negative. Urine culture is no growth to date. Imaging studies include a CT abdomen and pelvis revealing a large anterior pelvic wall abscess measuring approximately 13.5 x 9.3 x 10.5 cm with an air- fluid level extending into the pelvic cavity anterior to the urinary bladder. An additional hypodense collection within the anterior wall of the uterus communicates with the pelvic wall abscess and the endometrial canal. Other findings include fat stranding and air foci in the anterior pelvic wall soft tissues. The patient underwent CT-guided drainage with placement of an 8.5 Sinhala drain in the pelvic abscess and an 8 Sinhala drain in the abdominal abscess. Approximately 550 cc of thick purulent fluid were aspirated and drained. Preliminary cultures from the abscess fluid show Bacillus non-anthracis species; however, samples were obtained after initiation of broad-spectrum antibiotics. The patient has been on vancomycin and Zosyn since admission with an improving white count. She is tolerating diet. 04/06: white count is down to 9.5 04/07: white count is improving 04/08: white ccount has normalized , preliminary Abiola drain asprit is growing enterococcus , 04/09: Aspirate cultures is no longer growing etnerococcus and now growing streptococcus and is covered by Unasyn Plan: -recommend awaiting susceptibility testing as that will effect which antibiotic will be chosen as compatible with - continue Unasyn - 30 days of oral Augmentin 875 125 milligrams BID - followed by CT abd pelvis as outpatient - follow up with infectious disease in 30 days - follow up with gynecology - if abscess persists after 30 days will need to be considered for surgery - recommend additional drain management by gynecology - monitor for clinical improvement - Monitor drainage output from ABIOLA drains and assess clinical signs of infection. Plan discussed with: Other Dietary Evaluation Review Comments: 1) Continue current plan of care Expected Outcomes/Goals: F/U in 3-5 days CC Plasma Assessment Blood Product Administration S: [id number] BEN ROBLES MD Apr 09, 2024 22:05
--- NOTE | 2024-04-09 23:17 | DVHPN2 ---
Progress Note - Dictate Date Seen: Apr 09, 2024 Medical Necessity Reason Pt with a Central, PICC or Fol: No The following are medically ne: Chavarria Catheter Reason for chavarria catheter: Strict I&O Subjective Patient seen and examined at bedside. Breathing on room air. Overnight events reviewed. vital signs Vital Sign Date Time Temp Pulse Resp B/P (MAP) Pulse Ox O2 Delivery O2 Flow Rate FiO2 04/09/24 17:00 98.0 67 17 128/77 (94) 93 98.0 04/09/24 08:30 Room Air* 0 21 Total Intake and Output 04/08/24 04/08/24 04/09/24 15:00 23:00 07:00 Intake Total 110 ml 500 ml 750 ml Output Total 800 ml Balance 110 ml -300 ml 750 ml medications Current Medications Medications Dose Ordered Sig/Johny Route Start Time Stop Time Status Last Admin Dose Admin Vancomycin HCl 0 ml @ 0 mls/hr UD IV 04/01/24 04:45 Cancel Piperacillin Sod/ Tazobactam Sod 100 ml @ 25 mls/hr Q6HR IV 04/01/24 12:00 UNV Sodium Chloride 60 ml Q8HR IV 04/04/24 00:00 Cancel Cefpodoxime Proxetil 200 mg BID PO 04/07/24 22:00 UNV objective Gen.: Patient lying in bed in no apparent distress. Breathing on room air. Head: Normocephalic, atraumatic. Eyes: EOMI/PERRLA. Ears: Normal hearing. Normal anatomy. Neck/trachea: Trachea midline, supple. Nose: Normal external anatomy. Mouth: Moist mucous membranes. Chest: Decreased air entry bilaterally. No wheezing or rhonchi. Cardiovascular: Positive S1, positive S2. Regular rate and rhythm. Abdomen: Positive bowel sounds in all 4 quadrants. Soft, non-tender, non- distended. : Deferred. Rectal: Deferred. Skin: Warm, dry. Intact. Extremities: 2+ radial pulses bilaterally. No lower extremity edema. Neuro: Awake, alert, oriented x3. No gross motor or sensory deficits. Cranial nerves II through XII intact. Gait not assessed. laboratory and microbiology Laboratory Tests 04/06/24 11:15 04/05/24 05:29 Test 04/05/24 05:29 Range/Units Serum Glucose 90 74-106 mg/dL Assessment/Plan Impression: Dyspnea Diarrhea S/p section Abdominal abscess Hypokalemia Events: Breathing on room air No respiratory distress. Continue antibiotics Incentive spirometry Wound care Pain control Avoid oversedation Monitor ABIOLA drain output Patient is stable for discharge from the pulmonary standpoint. Labs and imaging reviewed. Rest of plan as noted below. Plan: Supplemental oxygen PRN Titrate to keep O2 sats above 92%. Continue antibiotics - ceftriaxone, clindamycin. Incentive spirometry Pain control Avoid oversedation S/p placement of abdominal and pelvic drains by IR for drainage of abscess. Monitor renal function. Monitor electrolytes. Supplement as necessary. Monitor ins and outs. Potassium supplementation GI prophylaxis w/ Protonix DVT prophylaxis. Prognosis: Poor given patient's multiple co-morbidities. Rest of plan per hospitalist and other consultants. Thank you Jovani Orona NP, for allowing me to participate in this patient's care. Further recommendations will depend on the patient's clinical course. Please do not hesitate to contact me if you have any questions or concerns. This medical document was created using an electronic medical record system with [employer] dictation system. Although these documentations are being carefully reviewed, there may still be some phonetic and typographical changes. The errors are purely typographical, due to imperfection on the software program, and do not reflect any compromise in the patient's medical care. Dietary Evaluation Review Comments: 1) Continue current plan of care Expected Outcomes/Goals: F/U in 3-5 days Plan discussed with: Patient, Other (VINCE Nguyen) CC Plasma Assessment Blood Product Administration S: [id number] AALIYAH CARVALHO MD Apr 09, 2024 23:17
== END 2024-04-09 19:52 | disposition home or self-care (01) | DRG 561 ==
LOC: EDBD 00:28 → ER 00:28 → TELE 04:37 → DOU IN ICU 20:35 → EAST 04-03 16:35 → TELE-EAST 04-06 19:08
PROVIDERS: ADMIT Nurse Practitioner Family; ATTEND Internal Medicine
PROC: 05H933Z Insertion of Infusion Device into Right Brachial Vein, Percutaneous Approach (ICD-10-PCS; 2024-04-01)
PROC: B54MZZA Ultrasonography of Right Upper Extremity Veins, Guidance (ICD-10-PCS; 2024-04-01)
PROC: 0W9G30Z Drainage of Peritoneal Cavity with Drainage Device, Percutaneous Approach (ICD-10-PCS; 2024-04-03)
PROC: 30233N1 Transfusion of Nonautologous Red Blood Cells into Peripheral Vein, Percutaneous Approach (ICD-10-PCS; principal; 2024-04-04)
DX: O86.01 Infection of obstetric surgical wound, superficial incisional site (principal); O85 Puerperal sepsis; G40.909 Epilepsy, unspecified, not intractable, without status epilepticus; L02.211 Cutaneous abscess of abdominal wall; O99.355 Diseases of the nervous system complicating the puerperium; O86.12 Endometritis following delivery; E87.6 Hypokalemia; D75.839 Thrombocytosis, unspecified; O72.3 Postpartum coagulation defects; O99.285 Endocrine, nutritional and metabolic diseases complicating the puerperium; O90.89 Other complications of the puerperium, not elsewhere classified; O99.215 Obesity complicating the puerperium; Z90.49 Acquired absence of other specified parts of digestive tract; Z91.040 Latex allergy status; Z79.899 Other long term (current) drug therapy; N73.9 Female pelvic inflammatory disease, unspecified; N71.9 Inflammatory disease of uterus, unspecified
CPT/HCPCS: 10005; 36415; 71045; 74150; 74177; 77012; 80048; 80053; 80202; 80307; 81001; 83605; 83735; 84100; 85025; 85610; 85730; 86850; 86900; 86901; 86920; 87040; 87081; 87086; 87205; 93005; 99291; G0378; J0692; J1885; J2003; J2250; J2405; J2470; J2543; J3480; J3490